=== PATIENT | female | born 1940 | race Caucasian/White ===

== ENCOUNTER 2020-04-01 11:30 | Outpatient (REF) | payer MEDICARE, SELFPAY ==
--- NOTE | 2020-04-01 11:39 | XR_ITS ---
EXAMINATION: XR HAND WRIST, LEFT CLINICAL INFORMATION: S69.90XA - Unspecified injury of left wrist, hand COMPARISON: None TECHNIQUE: The left hand and wrist are imaged together in 3 large [id number] images. There are a total of 3 views. FINDINGS: There is a comminuted fracture distal radial metaphysis with both transverse and longitudinal components extending to the distal articular surface. There is dorsal angulation distal radial articular surface and a dorsally displaced dorsal medial radial fragment. There is no dislocation. There is old ununited fracture ulnar styloid with corticated margins. Suspect small acute fracture dorsal medial aspect distal ulnar. There there is extensive chondrocalcinosis in the region of the triangular fibrocartilage and in the medial and lateral carpus and adjacent to the distal ulnar. Some fine chondrocalcinosis also noted at the first MCP joint. There are no other fractures. There are prominent osteoarthritic changes first carpometacarpal joint. Mild joint narrowing present DIP joints without erosive changes. XR/XR hand wrist LT IMPRESSION: 1. Comminuted intra-articular fracture distal radius with dorsal angulation and mild displacement. 2. Small corner fracture dorsal medial distal ulnar. Old ununited corticated fracture ulnar styloid. 3. Chondrocalcinosis carpus and first MTP. 4. Prominent osteoarthritis first carpometacarpal joint. Narrowing DIP joints.
== END 2020-04-01 11:31 | disposition home or self-care (01) ==
LOC: HO.HMGCX 11:30
PROVIDERS: PCP Pediatrics; Visit Provider Nurse Practitioner Family
DX: S69.92XA Unspecified injury of left wrist, hand and finger(s), initial encounter (principal)
CPT/HCPCS: 73110; 73130

== ENCOUNTER 2020-04-08 13:38 | Outpatient (REF) | payer MEDICARE, SELFPAY ==
--- NOTE | 2020-04-08 13:38 | XR_ITS ---
EXAMINATION: XR WRIST, LEFT CLINICAL INFORMATION: Left wrist fracture COMPARISON: Previous x-ray 04/01/2020 TECHNIQUE: PA, lateral, and oblique views of the left wrist. FINDINGS: There is a comminuted fracture of the left distal radius. There is a transverse component that is minimally displaced, impacted and has slight dorsal angulation of the distal radius with respect to the more proximal shaft. There is also a vertical component that is minimally displaced and extends intra-articular with the radiocarpal joint. This appears unchanged from previous exam. There is an old ulnar styloid fracture. There is a comminuted minimally displaced acute fracture of the distal ulna This appears unchanged. There are degenerative changes at the first FPC and trapezoid trapezium scaphoid joint. There is a chondrocalcinosis in the region of the triangular fibrocartilage complex. There is overlying soft tissue swelling. XR/XR wrist LT min 3V IMPRESSION: No change in the left distal radius and ulnar fractures from previous exam.
== END 2020-04-08 13:39 | disposition home or self-care (01) ==
LOC: HO.HOSX 13:38
PROVIDERS: PCP Pediatrics; Visit Provider Physician Assistant
DX: S62.102A Fracture of unspecified carpal bone, left wrist, initial encounter for closed fracture (principal)
CPT/HCPCS: 29085; 73110; 99202

== ENCOUNTER 2020-04-16 11:13 | Day surgery (SDC) | payer MEDICARE, SELFPAY ==
--- NOTE | 2020-04-15 10:21 | P.CONAN_ITS ---
Documented by User: Kelly Knightney 04/15/20 10:22 HPI - Anesthesia Eval Consult details Narrative: 80yo F for Radius Distal Fracture ORIF [facility] Past Medical History Medical History Anxiety COPD (chronic obstructive pulmonary disease) Depression Hyperlipidemia Surgical History Surgical History History of ankle surgery Social History Social History Are you a primary animal caretaker to a significant other at home: No Do you presently have visiting nurse or other home services: No Alcohol intake: never Smoking Status: Former smoker Use of substances other than those prescribed or required for medical reasons: No Advance Directives: Yes Advance Directives Information Provided: No Advance Directives on File: No (Pt's dtr is HCP unsure if its on file here) Advance Directives Date on File: 05/02/16 Recently lost weight without trying: No Current occupation: rt handed Meds Allergies Allergy/AdvReac Type Severity Reaction Status Date / Time No Known Allergies Allergy Verified 04/08/20 13:24 Home Medications Medication Instructions Recorded Confirmed Type aspirin 325 mg tablet 325 mg PO DAILY 04/08/20 History atorvastatin 10 mg tablet 10 mg PO BEDTIME 04/08/20 History calcium acetate 667 mg tablet 1,334 mg PO TID 04/08/20 History famotidine 40 mg/5 mL (8 mg/mL) 20 mg PO BEDTIME 04/08/20 History oral suspension tiotropium bromide 1.25 2 puff INHALATION BEDTIME 04/08/20 History mcg/actuation mist for inhalation venlafaxine 25 mg tablet 12.5 mg PO DAILY 04/08/20 History Exam Exam Date and Time: April 15, 2020 1021 Assessment and Plan Assessment Anesthesia Assessment: Chart Reviewed Documented by User: Dipesh Mcgee MD 04/16/20 12:05 [facility] Past Medical History Medical History Anxiety COPD (chronic obstructive pulmonary disease) Depression Hyperlipidemia Surgical History Surgical History History of ankle surgery Social History Social History Are you a primary animal caretaker to a significant other at home: No Do you presently have visiting nurse or other home services: No Alcohol intake: never Smoking Status: Former smoker Use of substances other than those prescribed or required for medical reasons: No Advance Directives: Yes Advance Directives Information Provided: No Advance Directives on File: No (Pt's dtr is HCP unsure if its on file here) Advance Directives Date on File: 05/02/16 Recently lost weight without trying: No Current occupation: rt handed Meds Allergies Allergy/AdvReac Type Severity Reaction Status Date / Time No Known Allergies Allergy Verified 04/08/20 13:24 Home Medications Medication Instructions Recorded Confirmed Type aspirin 325 mg tablet 325 mg PO DAILY 04/08/20 History atorvastatin 10 mg tablet 10 mg PO BEDTIME 04/08/20 History calcium acetate 667 mg tablet 1,334 mg PO TID 04/08/20 History famotidine 40 mg/5 mL (8 mg/mL) 20 mg PO BEDTIME 04/08/20 History oral suspension tiotropium bromide 1.25 2 puff INHALATION BEDTIME 04/08/20 History mcg/actuation mist for inhalation venlafaxine 25 mg tablet 12.5 mg PO DAILY 04/08/20 History Exam Airway Mallampati Class: II TM Dist: >3cm Neck ROM: Full Loose/Missing/Broken Teeth: Upper (False teeth) Heart: rrr Lungs: nl Other: ao Assessment and Plan Assessment Anesthesia Assessment: Anesthesia Plan Discussed and Chart Reviewed Final Anesthetic Review NPO: Yes ASA Class: III Final Preanesthetic Review: No Changes in Pt Med Stat, Meds/Allgs Chart Reviewed, Consent Obtained/Reviewed and Anes Risks/Benef Reviewed Patient Risk: Intermediate Procedure Risk: Low Anesthetic Plan Anesthetic Plan: GA Disposition: Standard PACU
--- NOTE | 2020-04-16 | XR_ITS ---
EXAMINATION: XR WRIST, LEFT CLINICAL INFORMATION: Left distal radius fracture COMPARISON: April 08, 2020 and April 01, 2020 TECHNIQUE: Four views of the left wrist. FINDINGS: There is stable appearance and alignment of comminuted intra-articular fracture of the distal left radius with dorsal angulation of the radiocarpal joint. Old ulnar styloid fracture is seen as well as comminuted distal ulnar fracture which is intra-articular. There is calcification of the triangular cartilage. There is severe degenerative change with joint space narrowing and prominent spurring about the first carpal metacarpal joint with narrowing of the triscaphe joint. XR/XR wrist LT min 3V IMPRESSION: No significant change in appearance of distal left radius and ulnar fractures with persistent dorsal angulation of the radiocarpal joint.
[2020-04-16 10:51] VITALS: BP 178/79; PULSE 96; RESP 16; TEMP 36.6; O2SAT 100; BMI 29.4
--- NOTE | 2020-04-16 16:00 | PC.NURSE ---
Addendum entered by Gisell Jean RN 04/16/20 16:54: After cast was applied, SENIOR QC TECHNICIAN intact, VSS. No pain. + pulses 7 sensation. Reminded to follow up w/ Dr Andres office Original Note: Received report from Margarita Ibarra RN. Per report, pt was not going in for procedure until Dr Andres reviewed bedside XRAY of hand. Dr Andres reviewed xray and per her orders procedure for ORIF of L Distal Radius was cancelled and pt was to be casted at bedside and discharged home thereafter. Pt was then casted at bedside, discharge instructions were discussed w/ patient and daughter, belongings returned, pt dressed in chair, IV removed and patient was discharged home via private vehicle w/ daughter.
== END 2020-04-16 23:59 ==
PROVIDERS: PCP Pediatrics; Visit Provider Orthopaedic Surgery
DX: S52.572A Other intraarticular fracture of lower end of left radius, initial encounter for closed fracture (principal); Z53.9 Procedure and treatment not carried out, unspecified reason; S52.602A Unspecified fracture of lower end of left ulna, initial encounter for closed fracture; J44.9 Chronic obstructive pulmonary disease, unspecified; F32.9 Major depressive disorder, single episode, unspecified; E78.5 Hyperlipidemia, unspecified; W07.XXXA Fall from chair, initial encounter; Y93.89 Activity, other specified; Y92.9 Unspecified place or not applicable; Y99.8 Other external cause status; Z87.891 Personal history of nicotine dependence
CPT/HCPCS: 73110

== ENCOUNTER 2020-05-05 12:33 | Outpatient (REF) | payer MEDICARE, SELFPAY ==
--- NOTE | 2020-05-05 13:10 | XR_ITS ---
EXAMINATION: XR WRIST, LEFT CLINICAL INFORMATION: Follow-up fracture COMPARISON: Previous x-rays April 2020 TECHNIQUE: Exams. of the left wrist. FINDINGS: There is a comminuted displaced fracture of the left distal radius. This appears impacted and intra-articular with the radiocarpal joint. There is dorsal angulation at the wrist. Is does not appear appreciably changed from previous exam. There is a recent fracture of the distal ulna that appears unchanged. There is an old ununited ulnar styloid fracture. There are degenerative changes at the first USP joint. Soft tissues are unremarkable. XR/XR wrist LT min 3V IMPRESSION: No change in the left distal radius and ulnar fractures.
== END 2020-05-05 12:34 | disposition home or self-care (01) ==
LOC: HO.HOSX 12:33
PROVIDERS: PCP Pediatrics; Visit Provider Orthopaedic Surgery
DX: S52.502A Unspecified fracture of the lower end of left radius, initial encounter for closed fracture (principal)
CPT/HCPCS: 73110; 99212

== ENCOUNTER 2021-04-07 15:29 | Outpatient (REF) | payer MEDICARE, SELFPAY ==
--- NOTE | ~2021-04-07 | XR_ITS ---
EXAMINATION: XR CHEST CLINICAL INFORMATION: Cough COMPARISON: Previous chest x-ray April 2019 TECHNIQUE: 2 views of the chest were obtained. FINDINGS: The cardiac and mediastinal contours are stable. The lungs are clear. The lungs are well inflated. There may be bullous changes in the left upper lobe. There is no pleural effusion or pneumothorax. There are degenerative changes of the spine and shoulders. XR/XR chest 2V IMPRESSION: No evidence for acute disease in the chest.
[2021-04-07 17:30] LABS: Influenza A PCR NEGATIVE (Negative); Influenza B PCR NEGATIVE (Negative); Resp Syncy Virus RNA Qual PCR NEGATIVE (Negative); SARS COV2 PCR INHOUSE NEGATIVE (Negative)
== END 2021-04-07 15:30 | disposition home or self-care (01) ==
LOC: HO.HMGCX 15:29
PROVIDERS: Visit Provider Physician Assistant Medical
DX: Z20.822 Contact with and (suspected) exposure to COVID-19 (principal); R05.9 Cough, unspecified; J06.9 Acute upper respiratory infection, unspecified
CPT/HCPCS: 0241U; 36415; 71046

== ENCOUNTER 2021-06-24 11:16 | Outpatient (REF) | payer MEDICARE, SELFPAY ==
--- NOTE | ~2021-06-24 | XR_ITS ---
EXAMINATION: XR CHEST CLINICAL INFORMATION: COPD with acute exacerbation. COMPARISON: 04/07/2021. TECHNIQUE: 2 views of the chest were obtained. FINDINGS: There is chronic scarring seen at the left lung base. There is no evidence of acute parenchymal disease, pneumothorax, or pleural effusion. Heart normal size. No evidence of pulmonary edema. There is severe degenerative change of the right shoulder. XR/XR chest 2V IMPRESSION: No definite acute parenchymal disease identified.
== END 2021-06-24 11:17 | disposition home or self-care (01) ==
LOC: HO.XRAY 11:16
PROVIDERS: PCP Pediatrics; Visit Provider Pediatrics
DX: J44.1 Chronic obstructive pulmonary disease with (acute) exacerbation (principal)
CPT/HCPCS: 71046

== ENCOUNTER → 2021-07-13 14:15 | Outpatient (BNVA) | payer MEDICARE, SELFPAY | PROVIDERS: PCP Pediatrics; Visit Provider Internal Medicine | DX: J44.9 Chronic obstructive pulmonary disease, unspecified (principal); R05.9 Cough, unspecified; Z87.891 Personal history of nicotine dependence | CPT/HCPCS: 99202 ==

== ENCOUNTER 2021-08-26 09:43 | Outpatient (REF) | payer MEDICARE, SELFPAY ==
--- NOTE | 2021-08-26 11:49 | PFT_ITS ---
INDICATION: COPD. SPIROMETRY: FEV1 to FVC of 62% with an FEV1 of 0.82 L, which is a 62% predicted and an FVC of 1.32 L which is 72% predicted. No significant response to bronchodilators noted, her spirometry actually got worse post bronchodilators. Maximum voluntary ventilation only 42% predicted. LUNG VOLUMES: The patient did have a hard time completing the lung volume maneuver. A FRC could not be reached and therefore the static numbers could not be measured. Her expiratory reserve volume was 97% predicted. DIFFUSION CAPACITY: DLCO 56% predicted. COMPARISONS: None available. INTERPRETATION: There is an obstructive ventilatory defect, consistent with moderate COPD. No significant response to bronchodilators noted, actually numbers got worse and the patient does have a severe decrease in maximum voluntary ventilation secondary likely to deconditioning. Lung volumes cannot be measured, although her expiratory reserve volume is within normal limits. The patient does have a moderate diffusion impairment secondary to emphysema and other parenchymal lung conditions should be considered. Clinical correlation is warranted. Sanket Lorenz MD MR/MODL / [id number]
== END 2021-08-26 09:44 | disposition home or self-care (01) ==
LOC: HO.RESP 09:43
PROVIDERS: PCP Pediatrics; Visit Provider Internal Medicine
DX: J44.9 Chronic obstructive pulmonary disease, unspecified (principal); R05.9 Cough, unspecified
CPT/HCPCS: 94060; 94729; 99212

== ENCOUNTER 2021-08-29 08:36 | Outpatient (REF) | payer MEDICARE, SELFPAY ==
[2021-08-29 11:09] LABS: MANUAL DIFF FLAG NO
[2021-08-29 11:14] LABS: Basophils Percent Auto 0.3 % (0-2); Eosinophils Absolute Auto 0.1 X10*3/uL (0.0-0.4); Eosinophils Percent Auto 1.7 % (0-4); Hematocrit 42.4 % (37.0-47.0); Hemoglobin 13.2 g/dl (12.0-16.0); Imm Gran Abs Auto 0.01 X10*3/uL (0.00-0.03); Imm Gran Pct Auto 0.1 % (0.0-0.4); Lymphocytes Absolute Auto 2.1 X10*3/uL (1.2-4.9); Lymphocytes Percent Auto 28.3 % (20-40); Mean Corpuscular HGB Conc 31.1 g/dl (31.0-35.0); Mean Corpuscular Hemoglobin 27.4 pg (27.0-33.0); Mean Corpuscular Volume 88.1 fL (80.0-98.0); Mean Platelet Volume 9.7 fL (9.4-12.3); Monocytes Absolute Auto 0.7 X10*3/uL (0.1-1.2); Monocytes Percent Auto 9.4 % (2-11); Neutrophils Absolute Auto 4.5 x10*3/uL (2.0-8.3); Neutrophils Percent Auto 60.2 % (45-73); Platelet Count 293 X10*3/uL (160-400); Red Blood Count 4.81 X10*6/uL (4.20-5.50); Red Cell Distribution Width 13.4 % (11.0-16.0); White Blood Count 7.5 X10*3/uL (4.8-10.8)
[2021-08-29 11:24] LABS: Alanine Aminotransferase 11 U/L (0-31); Albumin Level 4.1 g/dL (3.5-5.0); Alkaline Phosphatase 79 U/L (39-117); Anion Gap 11 (12-20); Aspartate Amino Transferase 18 U/L (5-31); Bilirubin Total 0.4 mg/dL (0.0-1.0); Blood Urea Nitrogen 9 mg/dL (9-16); Calcium 9.6 mg/dL (8.4-10.2); Carbon Dioxide 27 mmol/L (22-29); Chloride 107 mmol/L (96-108); Cholesterol 172 mg/dL; Estimated Glomerular Filt Rate > 60; Glucose Random 96 mg/dL (60-115); HDL Cholesterol 64 mg/dL; LDL Cholesterol Calculated 92 mg/dl; Potassium 4.3 mmol/L (3.3-5.1); Sodium 141 mmol/L (135-145); Total Protein 7.1 g/dL (6.5-8.0); Triglycerides 84 mg/dL
[2021-08-29 11:58] LABS: TSH reflex Free T4 2.17 uIU/mL (0.32-4.0)
[2021-08-29 12:15] LABS: Estimated Average Glucose 108 mg/dL; Hemoglobin A1c % 5.4 %
[2021-08-29 14:14] LABS: Vitamin D 25-OH Total 33.4 ng/mL (>30)
[2021-08-31 09:04] LABS: Vitamin B12 286 pg/mL (200-900)
== END 2021-08-29 08:37 | disposition home or self-care (01) ==
LOC: HO.HMGCLDS 08:36
PROVIDERS: PCP Pediatrics; Visit Provider Pediatrics
DX: J45.30 Mild persistent asthma, uncomplicated (principal); E78.00 Pure hypercholesterolemia, unspecified
CPT/HCPCS: 36415; 80053; 80061; 82306; 82550; 82607; 83036; 84443; 85025

== ENCOUNTER → 2021-10-19 10:06 | Outpatient (BNVA) | payer MEDICARE, SELFPAY | PROVIDERS: PCP Pediatrics; Visit Provider Internal Medicine | DX: J44.9 Chronic obstructive pulmonary disease, unspecified (principal); R05.9 Cough, unspecified | CPT/HCPCS: 99212 ==

== ENCOUNTER → 2022-02-18 10:22 | Outpatient (BNVA) | payer MEDICARE, SELFPAY | PROVIDERS: PCP Pediatrics; Visit Provider Internal Medicine | DX: J44.9 Chronic obstructive pulmonary disease, unspecified (principal); R05.9 Cough, unspecified | CPT/HCPCS: 99212 ==

== ENCOUNTER 2022-06-26 09:49 | Outpatient (REF) | payer MEDICARE, SELFPAY ==
--- NOTE | ~2022-06-26 | XR_ITS ---
EXAMINATION: XR chest 2V CLINICAL INFORMATION: Cough COMPARISON: No prior chest x-ray available in our system for comparison at the time of this dictation. TECHNIQUE: XR chest 2V Lungs and Erika: Lungs are hyperinflated, flattening of the diaphragm possibly trapping disease asthma or COPD. Pleura: Normal. Costophrenic angles are sharp. No pneumothorax. Heart: The heart is normal in size. Mediastinum: The mediastinum is within normal limits.. Bones: Skeletal structures included are normal for patient's age. XR/XR chest 2V IMPRESSION: * Hyperinflated lungs possibly trapping disease asthma small airway disease, and/or COPD. * No radiographic evidence of acute infiltrates or failure.
[2022-06-26 11:10] LABS: Binax Internal Control QC Valid; Binax Now Covid-19 Ag Negative (Negative); Binax Performed by: HO.BONILM
[2022-06-26 12:12] LABS: Influenza A PCR NEGATIVE (Negative); Influenza B PCR NEGATIVE (Negative); Resp Syncy Virus RNA Qual PCR NEGATIVE (Negative); SARS COV2 PCR INHOUSE NEGATIVE (Negative)
== END 2022-06-26 09:50 | disposition home or self-care (01) ==
LOC: HO.HMGCX 09:49
PROVIDERS: PCP Pediatrics; Visit Provider Physician Assistant Medical
DX: R05.9 Cough, unspecified (principal); Z20.822 Contact with and (suspected) exposure to COVID-19
CPT/HCPCS: 0241U; 71046; 87811; C9803

== ENCOUNTER 2022-08-05 08:59 | Outpatient (REF) | payer MEDICARE, SELFPAY ==
--- NOTE | ~2022-08-05 | XR_ITS ---
EXAMINATION: XR CHEST CLINICAL INFORMATION: COPD COMPARISON: Previous chest x-ray most recent June 2022 TECHNIQUE: 2 views of the chest were obtained. FINDINGS: The cardiac and mediastinal contours are stable. The lungs are clear. The lungs are well inflated. No pleural effusion or pneumothorax. Degenerative changes of the spine. XR/XR chest 2V IMPRESSION: No evidence for acute disease in the chest.
== END 2022-08-05 09:00 | disposition home or self-care (01) ==
LOC: HO.XRAY 08:59
PROVIDERS: PCP Pediatrics; Visit Provider Internal Medicine
DX: J44.1 Chronic obstructive pulmonary disease with (acute) exacerbation (principal); Z79.899 Other long term (current) drug therapy
CPT/HCPCS: 71046; 99212

== ENCOUNTER → 2022-08-30 09:43 | Outpatient (BNVA) | payer MEDICARE, SELFPAY | PROVIDERS: PCP Pediatrics; Visit Provider Internal Medicine | DX: J44.9 Chronic obstructive pulmonary disease, unspecified (principal); R05.9 Cough, unspecified | CPT/HCPCS: 99212 ==

== ENCOUNTER 2023-02-23 10:08 | Outpatient (REF) | payer MEDICARE, SELFPAY ==
[2023-02-23 14:56] LABS: MANUAL DIFF FLAG NO
[2023-02-23 15:04] LABS: Basophils Percent Auto 0.3 % (0-2); Eosinophils Absolute Auto 0.1 X10*3/uL (0.0-0.4); Hematocrit 42.9 % (37.0-47.0); Hemoglobin 13.3 g/dl (12.0-16.0); Imm Gran Abs Auto 0.01 X10*3/uL (0.00-0.03); Imm Gran Pct Auto 0.2 % (0.0-0.4); Lymphocytes Absolute Auto 1.4 X10*3/uL (1.2-4.9); Lymphocytes Percent Auto 22.7 % (20-40); Mean Corpuscular Volume 90.3 fL (80.0-98.0); Mean Platelet Volume 9.5 fL (9.4-12.3); Monocytes Absolute Auto 0.7 X10*3/uL (0.1-1.2); Monocytes Percent Auto 11.3 % (2-11); Neutrophils Absolute Auto 3.8 x10*3/uL (2.0-8.3); Neutrophils Percent Auto 64.5 % (45-73); Platelet Count 302 X10*3/uL (160-400); Red Blood Count 4.75 X10*6/uL (4.20-5.50); Red Cell Distribution Width 13.4 % (11.0-16.0)
[2023-02-23 15:31] LABS: Alanine Aminotransferase 13 U/L (0-31); Albumin Level 4.3 g/dL (3.5-5.0); Alkaline Phosphatase 94 U/L (39-117); Anion Gap 14 (12-20); Aspartate Amino Transferase 18 U/L (5-31); Bilirubin Direct 0.1 mg/dL (0.0-0.5); Bilirubin Total 0.3 mg/dL (0.0-1.0); Blood Urea Nitrogen 16 mg/dL (9-16); Calcium 10.2 mg/dL (8.4-10.2); Carbon Dioxide 28 mmol/L (22-29); Chloride 104 mmol/L (96-108); Cholesterol 169 mg/dL (<200); Estimated Glomerular Filt Rate > 60; Glucose Fasting 86 mg/dL (60-99); HDL Cholesterol 60 mg/dL (>40); LDL Cholesterol Calculated 88 mg/dL (<100); Potassium 4.9 mmol/L (3.3-5.1); Sodium 141 mmol/L (135-145); Total Protein 7.7 g/dL (6.5-8.0); Triglycerides 109 mg/dL (<150)
[2023-02-23 15:47] LABS: Vitamin B12 441 pg/mL (200-900)
[2023-02-23 15:51] LABS: Vitamin D 25-OH Total 39.1 ng/mL (>30)
== END 2023-02-23 10:09 | disposition home or self-care (01) ==
LOC: HO.CHCLDS 10:08
PROVIDERS: Visit Provider Pediatrics
DX: R41.3 Other amnesia (principal); E78.00 Pure hypercholesterolemia, unspecified; M12.9 Arthropathy, unspecified
CPT/HCPCS: 36415; 80048; 80061; 80076; 82306; 82550; 82607; 84443; 85025

== ENCOUNTER 2023-03-10 09:41 | Outpatient (AMB) | payer MEDICARE, SELFPAY ==
--- NOTE | 2023-03-10 09:47 | A.OFFVIS_ITS ---
Intake Vital Signs 03/10/23 09:51 Height 4 ft 9 in Weight 135 lb BMI 29.2 BP 102/52 L Blood Pressure Location Lt brachial Position Sitting Pulse 106 H Pulse Source Pulse Oximeter Temp 98.6 F Temp Source Temporal Artery Scan Pulse Oximetry (%) 94 Oxygen Delivery Method Room Air Intake Visit Reasons: copd Intake Note: pt is here for follow up but has been sick for little over a week, with chest congestion, coughing all night, keeping her up, yellow phelgm. using nebulizer tid Allergies No Known Allergies Allergy (Verified 03/10/23 09:56) Medication List - Last Reconciled 03/10/23 by Zehra Amador MD albuterol sulfate 2.5 mg (3 mL) inhalation Q4-6H PRN albuterol sulfate 90 mcg/actuation 0 mcg inhalation aspirin 81 mg PO DAILY atorvastatin 20 mg PO BEDTIME benzonatate 100 mg PO BID-TID PRN calcium carbonate-vitamin D3 600 mg-5 mcg (200 unit) 1 tab PO QAM celecoxib 100 mg PO DAILY docusate sodium 100 mg PO DAILY famotidine 20 mg PO BID fluticasone furoate-vilanterol 100-25 mcg/dose (Breo Ellipta) 1 inh inhalation DAILY 90 days guaifenesin 400 mg PO TID PRN melatonin 3 mg PO BEDTIME memantine 10 mg PO BID multivitamin 1 tab PO QAM Spiriva with HandiHaler (tiotropium bromide) 1 cap inhalation DAILY NS venlafaxine 75 mg PO DAILY Do you need a note to return to daycare/school/sports/work: No HPI copd HPI Details 82 years old very pleasant female is bro ught into the office by her daughter, ANTHONY , For 6 months follow-up She has been well and stable but since last week having some congestion in the upper airways cough and yellowish phlegm. No fever or chills, She has been using her regular inhalers including Breo and Spiriva, Also uses albuterol updraft about 3 times a day. [facility] Medical History COPD (chronic obstructive pulmonary disease) Depression Anxiety COPD (chronic obstructive pulmonary disease) Hyperlipidemia Surgical History History of ankle surgery Social History Are you a primary care transitions manager to a significant other at home: No Do you presently have visiting nurse or other home services: No Alcohol intake: never Patient Tobacco Use Status: Former Tobacco user Advance Directives Date on File: 05/02/16 Current occupation: rt handed Review of Systems Const All systems reviewed & are unremarkable except as noted in HPI and below Eyes Reports no additional complaints ENT Reports nasal congestion (Mild intermittent) Card Denies chest pain, Denies irregular heart rhythm and Denies leg edema Resp Reports as per HPI (AT PRESENT SHE DOES HAVE INCREASED AMOUNT OF COUGH) GI Reports heartburn (Mild GERD symptoms controlled with medicine) Reports no additional complaints Musc Reports abnormal gait (Impaired gait and she uses walker in the house) and Reports muscle weakness (Lower extremities) Skin/Breast Reports system reviewed and no additional complaints, except as documented Neuro Reports abnormal gait (Impaired gait and she uses walker in the house) and 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) Psych Reports no additional complaints and 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) Physical Exam Const Other: Very pleasant, in wheelchair General: comfortable, no acute distress, alert and awake Orientation/consciousness: patient oriented x3 HEENT Head: Yes normal to inspection General nose exam: No nasal polyps present and No nasal discharge present Face and sinus: Yes sinuses nontender Mouth: oropharynx normal Throat: Yes posterior oropharynx normal Eyes General: appearance normal, both eyes and all related structures Neck Neck: Yes normal visual inspection, Yes no lymphadenopathy, Yes trachea midline and Yes no JVD Thyroid: Thyroid normal Chest Chest palpation & inspection: normal inspection of the chest, normal palpation of entire chest wall and no tenderness Resp Other: Percussion note is resonant . Breath sounds are distant with prolonged expiratory phase . SHE DOES HAVE INSPIRATORY WHEEZES AND RHONCHI OVER THE BASILAR AREAS . Cardio Palpation: normal PMI Rate: regular rate Rhythm: regular rhythm Heart sounds: no gallops and no murmurs GI Palpation (GI): Soft to palpation, nontender, No hepatosplenomegaly present and no masses Auscultation: normal bowel sounds Back/Spine/Pelvis Thoracic/Lumbar Spine: thoracic and lumbar spine normal to inspection and thoraco-lumbar ROM limited Skin General skin exam: no rashes or lesions noted Neuro General: patient oriented x3, No gait normal (Impaired gait and she uses walker for stability) and no focal motor deficits Cranial nerves: Yes CN's II-XII intact bilaterally Extrem General: Yes normal to inspection, Yes no clubbing, cyanosis or edema, Yes no calf tenderness and Yes other (Toes of both feet are cold, but peripheral pulses normal. ( vaso motor )) Psych Appearance: grossly normal and well kempt Speech and movement: Normal speech and movement present Assessment & Plan Assessment & Plan (1) COPD exacerbation: Comment: CURRENTLY SHE HAS INCREASED SYMPTOMS OF COUGH AND SHORTNESS OF BREATH. ON AUSCULTATION THERE ARE CREPITATIONS/WHEEZES OVER THE RIGHT LUNG. TX: CONTINUE SPIRIVA HANDIHALER 1 INHALATION DAILY AND BREO 100-25 1 INHALATION DAILY. ALBUTEROL 2 PUFFS Q 4-6 HOURS P.R.N./ OR ALBUTEROL IN NEB Q 6 HRS PRN PREDNISONE 20 MG BID X 5 DAYS AND ALSO DOXYCYCLINE 100 B.I.D. FOR A COURSE OF 10 DAYS. Code(s): J44.1 - Chronic obstructive pulmonary disease with (acute) exacerbation (2) Cough: Comment: Cough is mild to moderate and mainly related to COPD. Use cough syrup, OTC, such as Robitussin 2 tsp t.i.d., only as needed. Code(s): R05.9 - Cough, unspecified Medications: New prednisone 20 mg PO BID 5 days 10 tabs 1RF doxycycline hyclate 100 mg PO BID 10 days 20 tabs 0RF BRONCHITIS Changed From Spiriva with HandiHaler (tiotropium bromide) 1 cap inhalation DAILY 30 ea 5RF NS To Spiriva with HandiHaler (tiotropium bromide) 1 cap inhalation DAILY 30 days 30 ea 5RF NS Refilled fluticasone furoate-vilanterol 100-25 mcg/dose (Breo Ellipta) 1 inh inhalation DAILY 90 days 60 ea 3RF COPD Coding Level of Care Code Est Pt Level 3 (40163) Diagnoses COPD exacerbation J44.1 Cough R05.9
[2023-03-10 09:51] VITALS: BP 102/52; PULSE 106; TEMP 37; O2SAT 94; BMI 29.2
== END 2023-03-10 10:05 | disposition home or self-care (01) ==
PROVIDERS: PCP Pediatrics; Visit Provider Internal Medicine
DX: J44.1 Chronic obstructive pulmonary disease with (acute) exacerbation (principal); R05.9 Cough, unspecified
CPT/HCPCS: 99213

== ENCOUNTER → 2023-03-10 09:41 | Outpatient (BNVA) | payer MEDICARE, SELFPAY | PROVIDERS: PCP Pediatrics; Visit Provider Internal Medicine | DX: J44.1 Chronic obstructive pulmonary disease with (acute) exacerbation (principal); R05.9 Cough, unspecified | CPT/HCPCS: 99212 ==

== ENCOUNTER 2023-05-20 10:01 | Outpatient (AMB) | payer MEDICARE, SELFPAY ==
--- NOTE | 2023-05-20 11:03 | AM.OFFWIN_ITS ---
Intake Vital Signs 05/20/23 11:16 Height 4 ft 9 in BMI Reason not done Patient refused/unable BP 110/68 Blood Pressure Location Rt brachial Position Sitting Pulse 117 H Pulse Source Pulse Oximeter Pulse Oximetry (%) 92 Oxygen Delivery Method Room Air Intake Visit Reasons: EST/cough congestion ([phone]) Intake Note: pt is here for c/o cough an congestion for a few days Patient Tobacco Use Status: Former Tobacco user Allergies No Known Allergies Allergy (Verified 05/20/23 11:03) Medication List - Last Reconciled 05/20/23 by Yeni Xavier NP albuterol sulfate 2.5 mg (3 mL) inhalation Q4-6H PRN albuterol sulfate 90 mcg/actuation 0 mcg inhalation amoxicillin 500 mg PO BID 10 days aspirin 81 mg PO DAILY atorvastatin 20 mg PO DAILY atorvastatin 20 mg PO BEDTIME calcium carbonate-vitamin D3 600 mg-5 mcg (200 unit) 1 tab PO QAM celecoxib 100 mg PO DAILY docusate sodium 100 mg PO DAILY famotidine 20 mg PO BID fluticasone furoate-vilanterol 100-25 mcg/dose (Breo Ellipta) 1 inh inhalation DAILY 90 days guaifenesin 400 mg PO TID PRN melatonin 3 mg PO BEDTIME memantine 10 mg PO BID multivitamin 1 tab PO QAM prednisone 50 mg PO BID 5 days Spiriva with HandiHaler (tiotropium bromide) 1 cap inhalation DAILY 30 days NS venlafaxine 75 mg PO DAILY Do you need a note to return to daycare/school/sports/work: No HPI HPI Comments History of Present Illness Details 83 y/o female who presents to walk in [facility] with c/o cough and chest congestion. H/o COPD. Reports trouble moving air in/out. [facility] Medical History COPD (chronic obstructive pulmonary disease) Depression Anxiety COPD (chronic obstructive pulmonary disease) Hyperlipidemia Surgical History History of ankle surgery Social History Are you a primary menagerie caretaker to a significant other at home: No Do you presently have visiting nurse or other home services: No Alcohol intake: never Patient Tobacco Use Status: Former Tobacco user Advance Directives Date on File: 05/02/16 Current occupation: rt handed Review of Systems Const All systems reviewed & are unremarkable except as noted in HPI and below Physical Exam Vital Signs: Last Vital Signs Pulse 117 H 05/20/23 11:16 BP 110/68 05/20/23 11:16 Pulse Ox 92 05/20/23 11:16 Oxygen Delivery Method Room Air 05/20/23 11:16 Const General: comfortable and no acute distress HEENT Head: Yes normocephalic Ears: external ears normal and TM's normal bilaterally General nose exam: Normal nasal mucous membranes and turbinates present Face and sinus: Yes sinus tenderness Mouth: moist mucous membranes Throat: Yes posterior oropharynx normal Resp Effort & Inspection: audible wheezes and Actively coughing Auscultation: no crackles, no rales, no rhonchi and wheezes scattered wheezes Cardio Rate: regular rate Rhythm: regular rhythm Office Procedures Nebulizer Treatment Nebulizer Treatment [id number]/[id number] RX initial, or Nebulizer Subsequent Treatment Office Meds ipratropium 0.5 mg-albuterol 3 mg (2.5 mg base)/3 mL nebulization soln Performing Provider: Yeni Xavier NP Performing Location: [facility] Administered by: Tiesha Sun RN on 05/20/23 11:51 Dose Route Admin Location Dispensed Lot Number Expiration Date NDC [employer] 3 mL inhalation 3 mL [id number] 01/31/24 8022-5029-81 [facility] Assessment & Plan Assessment & Plan (1) Cough in adult: Code(s): R05.9 - Cough, unspecified Plan: - Continue with home Nebs 4-6 hours Rest, warm fluids (2) Upper respiratory infection: Code(s): J06.9 - Acute upper respiratory infection, unspecified Qualifiers: URI type: unspecified viral URI Qualified Code(s): J06.9 - Acute upper respiratory infection, unspecified Plan: - Continue with home Nebs 4-6 hours Rest, warm fluids Orders: Orders SARS-CoV2/FLU/RSV Today J06.9 - Acute upper respiratory infection, unspecified, R05.9 - Cough, unspecified AMB Nebulizer Treatment Today J06.9 - Acute upper respiratory infection, unspecified, R05.9 - Cough, unspecified Medications: New amoxicillin 500 mg PO BID 10 days 20 caps 0RF J06.9 - Acute upper respiratory infection, unspecified, R05.9 - Cough, unspecified prednisone 50 mg PO BID 5 days 10 tabs 0RF J06.9 - Acute upper respiratory infection, unspecified, R05.9 - Cough, unspecified Discontinued prednisone Discontinued Reason: Patient Completed Course 20 mg PO BID 5 days 10 tabs 1RF Coding Level of Care Code Est Pt Level 3 (21213) Diagnoses Cough in adult R05.9 Viral upper respiratory tract infection J06.9 URI type: unspecified viral URI CPT Codes Nebulizer Treatment - Nebulizer Treatment, initial or subsequent: [id number]- Nebulizer/MDI RX initial, or Nebulizer Subsequent Treatment ([id number]) Time Spent (min) 15
[2023-05-20 11:16] VITALS: BP 110/68; PULSE 117; O2SAT 92
== END 2023-05-20 12:12 | disposition home or self-care (01) ==
PROVIDERS: PCP Pediatrics; Visit Provider Nurse Practitioner Family
DX: R05.9 Cough, unspecified (principal); J06.9 Acute upper respiratory infection, unspecified
CPT/HCPCS: 94640; 99213; J7620

== ENCOUNTER 2023-05-20 15:51 | Outpatient (REF) | payer MEDICARE, SELFPAY ==
[2023-05-20 16:47] LABS: Influenza A PCR NEGATIVE (Negative); Influenza B PCR NEGATIVE (Negative); Resp Syncy Virus RNA Qual PCR NEGATIVE (Negative); SARS COV2 PCR INHOUSE POSITIVE (Negative)
== END 2023-05-20 15:52 | disposition home or self-care (01) ==
LOC: HO.LNP 15:51
PROVIDERS: Visit Provider Nurse Practitioner Family
DX: Z11.52 Encounter for screening for COVID-19 (principal); J06.9 Acute upper respiratory infection, unspecified; R05.9 Cough, unspecified
CPT/HCPCS: 0241U

== ENCOUNTER 2023-06-22 14:01 | Outpatient (AMB) | payer MEDICARE, SELFPAY ==
[2023-06-22 14:06] VITALS: BP 158/80; PULSE 96; TEMP 36.6; O2SAT 98
--- NOTE | 2023-06-22 14:06 | AM.OFFWIN_ITS ---
Intake Vital Signs 06/22/23 14:06 Height 4 ft 9 in BP 158/80 H Blood Pressure Location Lt brachial Position Sitting Pulse 96 Pulse Source Pulse Oximeter Temp 97.9 F Temp Source Temporal Artery Scan Pulse Oximetry (%) 98 Oxygen Delivery Method Room Air Intake Visit Reasons: EP Chest Congestion 5 days Intake Note: pt is here today for chest congestion started 5 days ago Patient Tobacco Use Status: Former Tobacco user Allergies No Known Allergies Allergy (Verified 06/22/23 14:08) Do you need a note to return to daycare/school/sports/work: No HPI HPI Comments History of Present Illness Details 83 y/o female patient who presents to [facility] in clinic with c/o chest/nasal congestion, wheezing and SOB for 5 days. H/o COPD and currently having an exacerbation. Denies fevers, chills, nausea and vomiting. Reports good appetite. PFS Medical History COPD (chronic obstructive pulmonary disease) Depression Anxiety COPD (chronic obstructive pulmonary disease) Hyperlipidemia Surgical History History of ankle surgery Social History Are you a primary family day care worker to a significant other at home: No Do you presently have visiting nurse or other home services: No Alcohol intake: never Patient Tobacco Use Status: Former Tobacco user Advance Directives Date on File: 05/02/16 Current occupation: rt handed Review of Systems Const All systems reviewed & are unremarkable except as noted in HPI and below Physical Exam Vital Signs: Last Vital Signs Temp 97.9 F 06/22/23 14:06 Pulse 96 06/22/23 14:06 BP 158/80 H 06/22/23 14:06 Pulse Ox 98 06/22/23 14:06 Oxygen Delivery Method Room Air 06/22/23 14:06 Const General: comfortable and no acute distress HEENT Head: Yes normocephalic Ears: external ears normal and TM's normal bilaterally General nose exam: Normal nasal mucous membranes and turbinates present Face and sinus: Yes sinuses nontender Mouth: moist mucous membranes Throat: Yes posterior oropharynx normal Resp Effort & Inspection: audible wheezes and Actively coughing Auscultation: rhonchi and wheezes scattered wheezes Cardio Rate: regular rate Rhythm: regular rhythm Office Procedures Nebulizer Treatment Nebulizer Treatment [id number]/MDI RX initial, or Nebulizer Subsequent Treatment Office Meds ipratropium 0.5 mg-albuterol 3 mg (2.5 mg base)/3 mL nebulization soln Performing Provider: Yeni Xavier NP Performing Location: [facility] Administered by: Tiesha Sun RN on 06/22/23 14:37 Dose Route Admin Location Dispensed Lot Number Expiration Date 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 - RTC with high fevers, nausea or vomiting. Orders: Orders XR chest 2V Today AMB Nebulizer Treatment Today J44.1 - Chronic obstructive pulmonary disease with (acute) exacerbation Medications: New amoxicillin-pot clavulanate 875-125 mg 1 tab PO Q12H 5 days 10 tabs 0RF J44.1 - Chronic obstructive pulmonary disease with (acute) exacerbation azithromycin 500 mg PO DAILY 3 days 3 tabs 0RF J44.1 - Chronic obstructive pulmonary disease with (acute) exacerbation ipratropium-albuterol 0.5 mg-3 mg(2.5 mg base)/3 mL 3 mL inhalation Q4-6H PRN 90 mL 0RF wheezing J44.1 - Chronic obstructive pulmonary disease with (acute) exacerbation prednisone 50 mg PO DAILY 5 days 5 tabs 0RF J44.1 - Chronic obstructive pulmonary disease with (acute) exacerbation Coding Level of Care Code Est Pt Level 4 (19625) Diagnoses COPD with acute exacerbation J44.1 CPT Codes Nebulizer Treatment - Nebulizer Treatment, initial or subsequent: 95405- Nebulizer/MDI RX initial, or Nebulizer Subsequent Treatment ([id number]) Time Spent (min) 30 Comment
== END 2023-06-22 15:48 | disposition home or self-care (01) ==
PROVIDERS: PCP Pediatrics; Visit Provider Nurse Practitioner Family
DX: J44.1 Chronic obstructive pulmonary disease with (acute) exacerbation (principal)
CPT/HCPCS: 94640; 99214; J7620

== ENCOUNTER 2023-06-22 14:20 | Outpatient (REF) | payer MEDICARE, SELFPAY ==
--- NOTE | ~2023-06-22 | XR_ITS ---
EXAMINATION: XR CHEST CLINICAL INFORMATION: Cough, shortness of breath, wheezing. COMPARISON: Chest radiograph 08/05/2022. TECHNIQUE: 2 views of the chest were obtained. FINDINGS: Slightly increased diffuse interstitial prominence. No focal consolidation, pleural effusion or pneumothorax. Normal heart size. Mild atherosclerotic disease of the aortic arch. Thoracic spondylosis. Severe degenerative changes in the shoulders. No acute osseous findings. XR/XR chest 2V IMPRESSION: Findings suspicious for a small airways disease without focal consolidation or pleural effusion.
== END 2023-06-22 14:21 | disposition home or self-care (01) ==
LOC: HO.HMGCX 14:20
PROVIDERS: PCP Pediatrics; Visit Provider Nurse Practitioner Family
DX: R07.89 Other chest pain (principal); R06.2 Wheezing; R05.9 Cough, unspecified; R06.02 Shortness of breath
CPT/HCPCS: 71046

== ENCOUNTER 2023-09-05 09:47 | Outpatient (AMB) | payer MEDICARE, SELFPAY ==
[2023-09-05 09:54] VITALS: BP 110/66; PULSE 113; TEMP 36.7; O2SAT 93
--- NOTE | 2023-09-05 09:54 | AM.OFFWIN_ITS ---
Intake Vital Signs 09/05/23 09:54 Height 4 ft 9 in BMI Reason not done Patient refused/unable BP 110/66 Blood Pressure Location Rt brachial Position Sitting Pulse 113 H Pulse Source Pulse Oximeter Temp 98.1 F Temp Source Oral Pulse Oximetry (%) 93 Oxygen Delivery Method Room Air Intake Visit Reasons: EP SOB Chest congestion [id number] Intake Note: pt is here today for SOB chest congestion started 3 days ago Patient Tobacco Use Status: Former Tobacco user Allergies No Known Allergies Allergy (Verified 09/05/23 11:45) Medication List - Last Reconciled 09/05/23 by Erasto Barfield MD albuterol sulfate 90 mcg/actuation 0 mcg inhalation albuterol sulfate 2.5 mg (3 mL) inhalation Q4-6H PRN aspirin 81 mg PO DAILY atorvastatin 20 mg PO DAILY azithromycin 500 mg PO DAILY 3 days calcium carbonate-vitamin D3 600 mg-5 mcg (200 unit) 1 tab PO QAM celecoxib 100 mg PO DAILY docusate sodium 100 mg PO DAILY famotidine 20 mg PO BID fluticasone furoate-vilanterol 100-25 mcg/dose (Breo Ellipta) 1 inh inhalation DAILY 90 days guaifenesin 400 mg PO TID PRN ipratropium-albuterol 0.5 mg-3 mg(2.5 mg base)/3 mL 3 mL inhalation Q4-6H PRN memantine 10 mg PO BID multivitamin 1 tab PO QAM Spiriva with HandiHaler (tiotropium bromide) 1 cap inhalation DAILY 30 days NS venlafaxine 75 mg PO DAILY Do you need a note to return to daycare/school/sports/work: No HPI EP SOB Chest congestion [id number] HPI Details 83-year-old female presents to the [facility] for a sick visit. Patient reports increased shortness of breath, wheezing and productive cough in the past few days. Daily inhalers are not helping. Normally she uses a wheelchair to ambulate outside the house. Low-grade fever. No family members sick. [facility] Medical History COPD (chronic obstructive pulmonary disease) Depression Anxiety COPD (chronic obstructive pulmonary disease) Hyperlipidemia Surgical History History of ankle surgery Social History Are you a primary customer care team coach to a significant other at home: No Do you presently have visiting nurse or other home services: No Alcohol intake: never Patient Tobacco Use Status: Former Tobacco user Advance Directives Date on File: 05/02/16 Current occupation: rt handed Physical Exam Vital Signs: Last Vital Signs Temp 98.1 F 09/05/23 09:54 Pulse 113 H 09/05/23 09:54 BP 110/66 09/05/23 09:54 Pulse Ox 93 09/05/23 09:54 Oxygen Delivery Method Room Air 09/05/23 09:54 Const General: cooperative and healthy appearing Nutritional Appearance: well nourished Orientation/consciousness: patient oriented x3 Limitations: no limitations HEENT Head: Yes normal to inspection Eyes General: appearance normal, both eyes and all related structures Neck Neck: Yes normal visual inspection Chest Chest palpation & inspection: normal palpation of entire chest wall Resp Other: Scattered wheeze bilaterally. Effort & Inspection: normal respiratory effort Neuro General: patient oriented x3 Assessment & Plan Assessment & Plan (1) COPD exacerbation: Comment: CURRENTLY SHE HAS INCREASED SYMPTOMS OF COUGH AND SHORTNESS OF BREATH. ON AUSCULTATION THERE ARE CREPITATIONS/WHEEZES OVER THE RIGHT LUNG. TX: CONTINUE SPIRIVA HANDIHALER 1 INHALATION DAILY AND BREO 100-25 1 INHALATION DAILY. ALBUTEROL 2 PUFFS Q 4-6 HOURS P.R.N./ OR ALBUTEROL IN NEB Q 6 HRS PRN PREDNISONE 20 MG BID X 5 DAYS AND ALSO DOXYCYCLINE 100 B.I.D. FOR A COURSE OF 10 DAYS. Code(s): J44.1 - Chronic obstructive pulmonary disease with (acute) exacerbation Plan: Prednisone, Levaquin called in. Patient was encouraged to take the inhalers. Chest x-ray was personally reviewed by me. It shows bilateral infiltrates. Orders: Orders XR chest 2V Today R05.9 - Cough, unspecified AMB Nebulizer Treatment Today J44.1 - Chronic obstructive pulmonary disease with (acute) exacerbation Medications: New albuterol sulfate 2.5 mg (3 mL) inhalation ONCE 3 mL 0RF J44.1 - Chronic obstructive pulmonary disease with (acute) exacerbation Coding Level of Care Code Est Pt Level 4 (82308) Diagnoses COPD exacerbation J44.1
== END 2023-09-05 12:16 | disposition home or self-care (01) ==
PROVIDERS: PCP Pediatrics; Visit Provider Internal Medicine
DX: J44.1 Chronic obstructive pulmonary disease with (acute) exacerbation (principal)
CPT/HCPCS: 99214

== ENCOUNTER 2023-09-05 11:07 | Outpatient (REF) | payer MEDICARE, SELFPAY ==
--- NOTE | ~2023-09-05 | XR_ITS ---
EXAMINATION: XR CHEST CLINICAL INFORMATION: Cough COMPARISON: Previous chest x-ray June 2023 TECHNIQUE: 2 views of the chest were obtained. FINDINGS: The cardiac and mediastinal contours are normal. There are new bilateral nodular opacities, left greater than right. Largest measures 4 cm overlying the left pulmonary hilum and appears cavitary. No pleural effusion or pneumothorax. Degenerative changes of the spine. XR/XR chest 2V IMPRESSION: New nodular opacities, left greater than right, some of which appear cavitary. Infectious and inflammatory process should be considered. Neoplasm can't be excluded.
== END 2023-09-05 11:08 | disposition home or self-care (01) ==
LOC: HO.HMGCX 11:07
PROVIDERS: PCP Pediatrics; Visit Provider Internal Medicine
DX: R05.9 Cough, unspecified (principal)
CPT/HCPCS: 71046

== ENCOUNTER 2023-09-22 14:19 | Outpatient (AMB) | payer MEDICARE, SELFPAY ==
[2023-09-22 14:37] VITALS: BP 112/54; PULSE 95; O2SAT 100
--- NOTE | 2023-09-22 14:37 | MHC.OFFVIS ---
Vital Signs 09/22/23 14:37 Height 4 ft 9 in BP 112/54 L Blood Pressure Location Lt brachial Position Sitting Pulse 95 Pulse Source Pulse Oximeter Pulse Oximetry (%) 100 Oxygen Delivery Method Room Air Intake Visit Reasons: COPD Intake Note: pt is here for follow up and states she was in the hospital following urgent care, 09/05/23. DX pneumonia, did have admission to [facility], and now short of breath with ambulation, weaker, coughing. Lumber Mover Required: No Allergies No Known Allergies Allergy (Verified 09/22/23 14:58) Medication List - Last Reconciled 09/22/23 by Zehra Amador MD albuterol sulfate 90 mcg/actuation 0 mcg inhalation albuterol sulfate 2.5 mg (3 mL) inhalation Q4-6H PRN aspirin 81 mg PO DAILY atorvastatin 20 mg PO DAILY benzonatate 100 mg PO BID PRN calcium carbonate-vitamin D3 600 mg-5 mcg (200 unit) 1 tab PO QAM celecoxib 100 mg PO DAILY docusate sodium 100 mg PO DAILY famotidine 20 mg PO BID fluticasone furoate-vilanterol 100-25 mcg/dose (Breo Ellipta) 1 inh inhalation DAILY 90 days guaifenesin 400 mg PO TID PRN ipratropium-albuterol 0.5 mg-3 mg(2.5 mg base)/3 mL 3 mL inhalation Q4-6H PRN memantine 10 mg PO BID multivitamin 1 tab PO QAM Spiriva with HandiHaler (tiotropium bromide) 1 cap inhalation DAILY 30 days NS venlafaxine 75 mg PO DAILY Do you need a note to return to daycare/school/sports/work: No HPI HPI COPD: Details: 83 years old very pleasant female, , brought in for follow-up, after 6 months. She was admitted at [facility] just 2 weeks ago with acute exacerbation of COPD and due to pneumonia. Treated in the hospital for 1 week and then discharged. At home she has completed her short course of prednisone and antibiotics She is doing very well and seems to be back to her baseline . She still somewhat weak and has some residual cough. She has had no fever or chills or any wheezing. [facility] Medical History COPD (chronic obstructive pulmonary disease) Depression Anxiety COPD (chronic obstructive pulmonary disease) Hyperlipidemia Surgical History History of ankle surgery Social History Are you a primary career transition specialist to a significant other at home: No Do you presently have visiting nurse or other home services: No Alcohol intake: never Patient Tobacco Use Status: Former Tobacco user Advance Directives Date on File: 05/02/16 Current occupation: rt handed Review of Systems Const All systems reviewed & are unremarkable except as noted in HPI and below Eyes Reports no additional complaints ENT Reports nasal congestion (Mild intermittent) Card Denies chest pain, Denies irregular heart rhythm and Denies leg edema Resp Reports as per HPI (AT PRESENT SHE DOES HAVE INCREASED AMOUNT OF COUGH) GI Reports heartburn (Mild GERD symptoms controlled with medicine) Reports no additional complaints Musc Reports abnormal gait (Impaired gait and she uses walker in the house) and Reports muscle weakness (Lower extremities) Skin/Breast Reports system reviewed and no additional complaints, except as documented Neuro Reports abnormal gait (Impaired gait and she uses walker in the house) and 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) Psych Reports no additional complaints and 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) Physical Exam Vital Signs: Last Vital Signs Pulse 95 09/22/23 14:37 BP 112/54 L 09/22/23 14:37 Pulse Ox 100 09/22/23 14:37 Oxygen Delivery Method Room Air 09/22/23 14:37 Const Other: Very pleasant, in wheelchair General: comfortable, no acute distress, alert and awake Orientation/consciousness: patient oriented x3 HEENT Head: Yes normal to inspection General nose exam: No nasal polyps present and No nasal discharge present Face and sinus: Yes sinuses nontender Mouth: oropharynx normal Throat: Yes posterior oropharynx normal Eyes General: appearance normal, both eyes and all related structures Neck Neck: Yes normal visual inspection, Yes no lymphadenopathy, Yes trachea midline and Yes no JVD Thyroid: Thyroid normal Chest Chest palpation & inspection: normal inspection of the chest, normal palpation of entire chest wall and no tenderness Resp Other: Percussion note is resonant . Breath sounds are distant with prolonged expiratory phase . On auscultation she does not have any localize crepitations or wheezes, both sides. are quite clear Cardio Palpation: normal PMI Rate: regular rate Rhythm: regular rhythm Heart sounds: no gallops and no murmurs GI Palpation (GI): Soft to palpation, nontender, No hepatosplenomegaly present and no masses Auscultation: normal bowel sounds Back/Spine/Pelvis Thoracic/Lumbar Spine: thoracic and lumbar spine normal to inspection and thoraco-lumbar ROM limited Skin General skin exam: no rashes or lesions noted Neuro General: patient oriented x3, No gait normal (Impaired gait and she uses walker for stability) and no focal motor deficits Cranial nerves: Yes CN's II-XII intact bilaterally Extrem General: Yes normal to inspection, Yes no clubbing, cyanosis or edema, Yes no calf tenderness and Yes other (Toes of both feet are cold, but peripheral pulses normal. ( vaso motor )) Psych Appearance: grossly normal and well kempt Speech and movement: Normal speech and movement present Assessment & Plan Assessment & Plan (1) COPD (chronic obstructive pulmonary disease): Comment: This patient has long-standing history of chronic obstructive pulmonary disease. As per PFT, COPD is moderately severe, without much response to bronchodilators. This seems to be related to her previous smoking but luckily she quit more than 20 years ago. Recently treated at [facility] for possible pneumonia and acute exacerbation. Now improved to her usual baseline but still has some residual cough and weakness. Code(s): J44.9 - Chronic obstructive pulmonary disease, unspecified Category: Medical Plan: TX: Continue : Spiriva HandiHaler 1 inhalation daily Breo 100-25 1 inhalation daily. Okay to use albuterol solution in the nebulizer Q 4-6 hours p.r.n. if any wheezing or bouts of cough. INCENTIVE SPIROMETRY, , DEVICE GIVEN FROM THE OFFICE AND PATIENT EDUCATED TO DO DEEP BREATHING EXERCISES EVERY FEW HOURS WHILE AWAKE. (2) Cough: Comment: Cough is mild to moderate and mainly related to COPD. Code(s): R05.9 - Cough, unspecified Category: Medical Plan: Use cough syrup, OTC, such as Robitussin 2 tsp t.i.d., only as needed. ALSO MAY USE BENZONATATE [id number] MG B.I.D. P.R.N. Coding Level of Care Code Est Pt Level 3 (58724) Diagnoses COPD (chronic obstructive pulmonary disease) J44.9 Cough R05.9
== END 2023-09-22 14:59 | disposition home or self-care (01) ==
PROVIDERS: PCP Pediatrics; Visit Provider Internal Medicine
DX: J44.9 Chronic obstructive pulmonary disease, unspecified (principal); R05.9 Cough, unspecified
CPT/HCPCS: 99213

== ENCOUNTER → 2023-09-22 14:19 | Outpatient (BNVA) | payer MEDICARE, SELFPAY | PROVIDERS: PCP Pediatrics; Visit Provider Internal Medicine | DX: J44.9 Chronic obstructive pulmonary disease, unspecified (principal); R05.9 Cough, unspecified | CPT/HCPCS: 99212 ==

== ENCOUNTER 2024-02-06 15:25 | Outpatient (AMB) | payer MEDICARE, SELFPAY ==
[2024-02-06 15:28] VITALS: BP 120/68; PULSE 107; O2SAT 96
--- NOTE | 2024-02-06 15:28 | MHC.OFFVIS ---
Vital Signs 02/06/24 15:28 Height 4 ft 9 in BP 120/68 Blood Pressure Location Lt brachial Position Sitting Pulse 107 H Pulse Source Pulse Oximeter Pulse Oximetry (%) 96 Oxygen Delivery Method Room Air Intake Visit Reasons: copd Intake Note: pt is here for follow up and states she is wheezing and would like a replacement nebulizer. Nurse Orthopaedic Required: No Allergies No Known Allergies Allergy (Verified 02/06/24 15:45) Medication List - Last Reconciled 02/06/24 by Zehra Amador MD albuterol sulfate 90 mcg/actuation 0 mcg inhalation albuterol sulfate 2.5 mg (3 mL) inhalation Q4-6H PRN aspirin 81 mg PO DAILY atorvastatin 20 mg PO DAILY benzonatate 100 mg PO BID PRN calcium carbonate-vitamin D3 600 mg-5 mcg (200 unit) 1 tab PO QAM celecoxib 100 mg PO DAILY docusate sodium 100 mg PO DAILY famotidine 20 mg PO BID fluticasone furoate-vilanterol 100-25 mcg/dose (Breo Ellipta) 1 inh inhalation DAILY 90 days fluticasone furoate-vilanterol 100-25 mcg/dose (Breo Ellipta) 1 inh inhalation DAILY 90 days guaifenesin 400 mg PO TID PRN memantine 10 mg PO BID multivitamin 1 tab PO QAM Spiriva with HandiHaler (tiotropium bromide) 1 cap inhalation DAILY 30 days NS venlafaxine 75 mg PO DAILY Do you need a note to return to daycare/school/sports/work: No HPI HPI copd: Details: THIS 83 YEARS OLD VERY PLEASANT FEMALE WHO IS BROUGHT IN THE WHEELCHAIR, BY HER DAUGHTER, COMES FOR HER ROUTINE FOLLOW-UP FOR COPD. SHE HAS BEEN RELATIVELY STABLE WITHOUT ANY ACUTE EXACERBATION. SHE CONTINUES TO USE HER INHALERS INCLUDING BREO ELLIPTA, SPIRIVA HANDIHALER, AND USE OF ALBUTEROL SULFATE 2.5 MG (3 ML ) IN THE NEBULIZER ABOUT TWICE A DAY SHE DOES HAVE A FEELING OF CHEST CONGESTION OFF AND ON BUT IT CLEARS WITH THE USE OF NEBULIZER. LUCKILY SHE HAS HAD NO RECENT RESPIRATORY INFECTION. [facility] Medical History Cavitary lesion of lung Pneumonia COPD (chronic obstructive pulmonary disease) Depression Anxiety COPD (chronic obstructive pulmonary disease) Hyperlipidemia Surgical History History of ankle surgery Social History Are you a primary physician assistant primary care to a significant other at home: No Do you presently have visiting nurse or other home services: No Alcohol intake: never Patient Tobacco Use Status: Former Tobacco user Advance Directives Date on File: 05/02/16 Current occupation: rt handed Review of Systems Const All systems reviewed & are unremarkable except as noted in HPI and below Eyes Reports no additional complaints ENT Reports nasal congestion (Mild intermittent) Card Denies chest pain, Denies irregular heart rhythm and Denies leg edema Resp Reports as per HPI (AT PRESENT SHE DOES HAVE INCREASED AMOUNT OF COUGH) GI Reports heartburn (Mild GERD symptoms controlled with medicine) Reports no additional complaints Musc Reports abnormal gait (Impaired gait and she uses walker in the house) and Reports muscle weakness (Lower extremities) Skin/Breast Reports system reviewed and no additional complaints, except as documented Neuro Reports abnormal gait (Impaired gait and she uses walker in the house) and 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) Psych Reports no additional complaints and 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) Physical Exam Vital Signs: Last Vital Signs Pulse 107 H 02/06/24 15:28 BP 120/68 02/06/24 15:28 Pulse Ox 96 02/06/24 15:28 Oxygen Delivery Method Room Air 02/06/24 15:28 Const Other: Very pleasant, in wheelchair General: comfortable, no acute distress, alert and awake Orientation/consciousness: patient oriented x3 HEENT Head: Yes normal to inspection General nose exam: No nasal polyps present and No nasal discharge present Face and sinus: Yes sinuses nontender Mouth: oropharynx normal Throat: Yes posterior oropharynx normal Eyes General: appearance normal, both eyes and all related structures Neck Neck: Yes normal visual inspection, Yes no lymphadenopathy, Yes trachea midline and Yes no JVD Thyroid: Thyroid normal Chest Chest palpation & inspection: normal inspection of the chest, normal palpation of entire chest wall and no tenderness Resp Other: Percussion note is resonant . Breath sounds are distant with prolonged expiratory phase . On auscultation she does not have any localized crepitations or wheezes, both sides. are quite clear Cardio Palpation: normal PMI Rate: regular rate Rhythm: regular rhythm Heart sounds: no gallops and no murmurs GI Palpation (GI): Soft to palpation, nontender, No hepatosplenomegaly present and no masses Auscultation: normal bowel sounds Back/Spine/Pelvis Thoracic/Lumbar Spine: thoracic and lumbar spine normal to inspection and thoraco-lumbar ROM limited Skin General skin exam: no rashes or lesions noted Neuro General: patient oriented x3, No gait normal (Impaired gait and she uses walker for stability) and no focal motor deficits Cranial nerves: Yes CN's II-XII intact bilaterally Extrem General: Yes normal to inspection, Yes no clubbing, cyanosis or edema, Yes no calf tenderness and Yes other (Toes of both feet are cold, but peripheral pulses normal. ( vaso motor )) Psych Appearance: grossly normal and well kempt Speech and movement: Normal speech and movement present Assessment & Plan Assessment & Plan (1) COPD (chronic obstructive pulmonary disease): Comment: This patient has long-standing history of chronic obstructive pulmonary disease. As per PFT, COPD is moderately severe, without much response to bronchodilators. This seems to be related to her previous smoking but luckily she quit more than 20 years ago. Code(s): J44.9 - Chronic obstructive pulmonary disease, unspecified Category: Medical Plan: Continue using Breo 100-25 1 inhalation daily Spiriva HandiHaler. 1 inhalation daily Use albuterol solution 2.5 mg in the nebulizer twice a day as needed. Current nebulizer device is not functioning so a new unit is ordered. (2) Cough: Comment: Cough is mild to moderate and mainly related to COPD. Code(s): R05.9 - Cough, unspecified Category: Medical Plan: As under COPD Coding Level of Care Code Est Pt Level 3 (29954) Diagnoses COPD (chronic obstructive pulmonary disease) J44.9 Cough R05.9
== END 2024-02-06 15:50 | disposition home or self-care (01) ==
PROVIDERS: PCP Pediatrics; Visit Provider Internal Medicine
DX: J44.9 Chronic obstructive pulmonary disease, unspecified (principal); R05.9 Cough, unspecified
CPT/HCPCS: 99213

== ENCOUNTER → 2024-02-06 15:25 | Outpatient (BNVA) | payer MEDICARE, SELFPAY | PROVIDERS: PCP Pediatrics; Visit Provider Internal Medicine | DX: J44.9 Chronic obstructive pulmonary disease, unspecified (principal); R05.9 Cough, unspecified | CPT/HCPCS: 99212 ==

== ENCOUNTER 2024-02-17 09:53 | Outpatient (AMB) | payer MEDICARE, SELFPAY ==
--- NOTE | 2024-02-17 09:54 | AM.OFFWIN_ITS ---
Intake Vital Signs 02/17/24 09:59 Weight 123 lb BP 116/72 Blood Pressure Location Rt brachial Position Sitting Pulse 100 Pulse Source Pulse Oximeter Temp 97.5 F Temp Source Oral Pulse Oximetry (%) 99 Oxygen Delivery Method Room Air Intake Visit Reasons: EP Cough, wrist pain Intake Note: Patient here for right shoulder and wrist pain after fall yesterday morning. She also has a cough that has been present for about 2-3 days. Patient Tobacco Use Status: Former Tobacco user Allergies No Known Allergies Allergy (Verified 02/17/24 09:58) Do you need a note to return to daycare/school/sports/work: No HPI HPI Comments History of Present Illness Details 83 y/o female patient who presents to [facility] walk in clinic with c/o cough x 2-3 days. Pt also c/o right shoulder and right wrist pain since yesterday. Pt suffered a mechanical fall at home and landed on her right shoulder and wrist. [facility] Medical History (Updated 02/17/24 @ 10:23 by Yeni Xavier NP) Contusion of right wrist Contusion of right shoulder Cough in adult Contusion of left wrist Contusion of left shoulder Cavitary lesion of lung Pneumonia COPD (chronic obstructive pulmonary disease) Depression Anxiety COPD (chronic obstructive pulmonary disease) Hyperlipidemia Surgical History History of ankle surgery Social History Are you a primary rn intensive care unit to a significant other at home: No Do you presently have visiting nurse or other home services: No Alcohol intake: never Patient Tobacco Use Status: Former Tobacco user Advance Directives Date on File: 05/02/16 Current occupation: rt handed Review of Systems Const All systems reviewed & are unremarkable except as noted in HPI and below Physical Exam Vital Signs: Last Vital Signs Temp 97.5 F 02/17/24 09:59 Pulse 100 02/17/24 09:59 BP 116/72 02/17/24 09:59 Pulse Ox 99 02/17/24 09:59 Oxygen Delivery Method Room Air 02/17/24 09:59 Const General: cooperative and no acute distress Nutritional Appearance: obese Orientation/consciousness: patient oriented x3 Resp Effort & Inspection: normal respiratory effort and no cough Auscultation: clear to auscultation bilaterally, no crackles, no rales, no rhonchi and no wheezes Cardio Heart sounds: S1 normal heart sound present and S2 normal heart sound present Neuro General: patient oriented x3 Extrem Right upper extremity: shoulder/upper arm Details: tenderness Location: of the A-C joint and of the proximal humerus, swelling, abnormal ROM Details: pain with active ROM and pain with passive ROM and deformity; no crepitus and no unusual warmth and wrist (pain with ROM) Details: tenderness; no swelling and no crepitus Left upper extremity: normal to inspection and shoulder/upper arm Details: abnormal ROM; no swelling Psych Speech and movement: Normal speech and movement present Assessment & Plan Assessment & Plan (1) Cough in adult: Code(s): R05.9 - Cough, unspecified Plan: OTC cough remedies Lungs CTA Ordered Benzonatate RTC if not better. (2) Contusion of right shoulder: Code(s): S40.011A - Contusion of right shoulder, initial encounter Qualifiers: Encounter type: initial encounter Qualified Code(s): S40.011A - Contusion of right shoulder, initial encounter Plan: Ordered Xray, Prob Dislocated Right GHJ instability. Ordered Home PT Acetaminophen and NSAIDs for pain relief. IceHot Applied Shoulder immobilizer. (3) Contusion of right wrist: Code(s): S60.211A - Contusion of right wrist, initial encounter Qualifiers: Encounter type: initial encounter Qualified Code(s): S60.211A - Contusion of right wrist, initial encounter Plan: Ordered Wrist Xray ICE/HOT Orders: Orders PT Evaluation and Treatment Today S40.011A - Contusion of right shoulder, initial encounter XR shoulder RT min 2V Today S40.011A - Contusion of right shoulder, initial encounter, S60.211A - Contusion of right wrist, initial encounter XR hand wrist RT Today S40.011A - Contusion of right shoulder, initial encounter, S60.211A - Contusion of right wrist, initial encounter Medications: New benzonatate 100 mg PO TID 90 caps 0RF cough R05.9 - Cough, unspecified Coding Level of Care Code Est Pt Level 4 (63655) Diagnoses Cough in adult R05.9 Contusion of right shoulder, initial encounter S40.011A Encounter type: initial encounter Contusion of right wrist, initial encounter S60.211A Encounter type: initial encounter Time Spent (min) 20
[2024-02-17 09:59] VITALS: BP 116/72; PULSE 100; TEMP 36.4; O2SAT 99
== END 2024-02-17 13:58 | disposition home or self-care (01) ==
PROVIDERS: PCP Pediatrics; Visit Provider Nurse Practitioner Family
DX: R05.9 Cough, unspecified (principal); S40.011A Contusion of right shoulder, initial encounter; S60.211A Contusion of right wrist, initial encounter

== ENCOUNTER → 2024-02-17 09:53 | Outpatient (BNVA) | payer MEDICARE, SELFPAY | PROVIDERS: PCP Pediatrics; Visit Provider Nurse Practitioner Family ==

== ENCOUNTER 2024-02-17 10:19 | Outpatient (REF) | payer MEDICARE, SELFPAY ==
--- NOTE | ~2024-02-17 | XR_ITS ---
EXAMINATION: XR HAND/WRIST, RIGHT CLINICAL INFORMATION: Pain. Fall. COMPARISON: None available. TECHNIQUE: Three views of the right hand and wrist. FINDINGS: Osteopenia limits sensitivity. No visible acute fracture or dislocation. Arthritis present. More prominent changes of severe first CMC, first MCP joint arthritis. Chronic-appearing calcification/ossifications around the first CMC joint. Chronic-appearing calcifications in the ulnocarpal space, suggesting CPPD calcifications. Mild wrist soft tissue swelling. XR/XR hand wrist RT IMPRESSION: No radiographic evidence of acute fracture or dislocation. Osteopenia limits evaluation. If there are ongoing symptoms, clinical concern for a fracture, recommend repeat radiographs. Arthritis. Severe first CMC arthritis. Study is assigned for dictation on February 17, 2024 Electronically signed by: Jacinto Castillo MD 02/17/2024 02:04 PM EDT
--- NOTE | ~2024-02-17 | XR_ITS ---
EXAMINATION: XR SHOULDER, RIGHT CLINICAL INFORMATION: Shoulder pain. COMPARISON: None available. TECHNIQUE: Two views of the right shoulder. FINDINGS: Bones appear osteopenic. Mild-moderate acromioclavicular arthritis. On the AP projection, the humeral head overlaps of the glenoid, limiting evaluation of the glenohumeral joint space and the osseous structures.. No visible acute fracture or dislocation. There is a chronic-appearing linear calcification/ossification along the superior lateral aspect of the shoulder. No suspicious bony lesion is seen. No acute lung finding is seen. XR/XR shoulder RT min 2V IMPRESSION: Mild-moderate acromioclavicular arthritis. Limited evaluation of the glenohumeral joint space. Overlapping densities on the AP projection limiting evaluation of the osseous structures. No radiographically evident acute fracture , in the provided views. Osteopenia. Study is assigned for dictation on February 17, 2024 Electronically signed by: Jacinto Castillo MD 02/17/2024 01:05 PM EDT
== END 2024-02-17 10:20 | disposition home or self-care (01) ==
LOC: HO.HMGCX 10:19
PROVIDERS: PCP Pediatrics; Visit Provider Nurse Practitioner Family
DX: S60.211A Contusion of right wrist, initial encounter (principal); S04.011A Injury of optic nerve, right eye, initial encounter; R05.9 Cough, unspecified
CPT/HCPCS: 73030; 73110; 73130; 99212

== ENCOUNTER 2024-02-29 10:33 | Outpatient (REF) | payer MEDICARE, SELFPAY ==
--- NOTE | ~2024-02-29 | XR_ITS ---
EXAMINATION: XR CHEST CLINICAL INFORMATION: Right lower crackles with question of pneumonia COMPARISON: Chest radiograph 09/05/23. TECHNIQUE: 2 views of the chest were obtained. FINDINGS: The previously seen nodular opacities on the 09/05/23 study the largest of which was cavitary are not seen on the current exam. The heart and pulmonary vessels appear normal. There is underlying COPD with hyperinflation. No infiltrates, effusions or lung masses are seen. Degenerative changes are present in both shoulders. XR/XR chest 2V IMPRESSION: No acute intrathoracic disease. Previously seen nodular opacities are not seen on the current exam. Electronically signed by: Liborio Eugene MD 02/29/2024 03:08 PM EDT RP
== END 2024-02-29 10:34 | disposition home or self-care (01) ==
LOC: HO.HMGCX 10:33
PROVIDERS: PCP Pediatrics; Visit Provider Pediatrics
DX: R05.3 Chronic cough (principal); J44.9 Chronic obstructive pulmonary disease, unspecified
CPT/HCPCS: 71046

== ENCOUNTER 2024-04-16 09:59 | Outpatient (REF) | payer MEDICARE, SELFPAY ==
[2024-04-16 14:20] LABS: Influenza A PCR NEGATIVE (Negative); Influenza B PCR NEGATIVE (Negative); Resp Syncy Virus RNA Qual PCR NEGATIVE (Negative); SARS COV2 PCR INHOUSE NEGATIVE (Negative)
== END 2024-04-16 10:00 | disposition home or self-care (01) ==
LOC: HO.LAB 09:59
PROVIDERS: Physician Assistant; PCP Pediatrics
DX: Z13.89 Encounter for screening for other disorder (principal)
CPT/HCPCS: 0241U; 99202

== ENCOUNTER 2024-04-16 09:59 | Outpatient (AMB) | payer MEDICARE, SELFPAY ==
--- NOTE | 2024-04-16 10:00 | MHC.OFFWIV ---
Intake Vital Signs 04/16/24 10:01 Height 4 ft 9 in Weight 123 lb BMI 26.6 BP 122/84 Blood Pressure Location Rt brachial Position Sitting Pulse 96 Pulse Source Pulse Oximeter Temp 97.2 F Temp Source Temporal Artery Scan Pulse Oximetry (%) 94 Oxygen Delivery Method Room Air Intake Visit Reasons: EP-chest congestion x3days HX:copd Intake Note: Pt presents to the office today for c/o chest congestion and yellow mucus x3 days. Patient Tobacco Use Status: Former Tobacco user Allergies No Known Allergies Allergy (Verified 04/16/24 10:03) HPI HPI Comments History of Present Illness Details History The patient is an 84-year-old female presenting with respiratory symptoms and suspected bacterial pneumonia. She reports congestion and a mild cold. The patient has a history of Chronic Obstructive Pulmonary Disease (COPD) and typically uses Breo, Pariva, and a rescue inhaler. She has not required the use of the rescue inhaler more frequently than usual. The patient denies any episodes of wheezing or shortness of breath beyond her baseline COPD-related symptoms. There is no history of fever or noticeable gastrointestinal symptoms. However, she is experiencing a cough producing a small amount of yellowish sputum and a slight headache with pressure, though she reports no significant sinus pain. The patient lives with someone who has recently experienced similar cold symptoms. She denies being diabetic and reports no significant pain behind her ear or in response to sinus pressure. she denies fever but does admit to a slight headache. Physical Exam General: Cooperative, healthy appearing, comfortable and no acute distress Orientation/consciousness: Patient oriented x3 Limitations: in wheelchair Head: Normal to inspection Ears: Hearing grossly normal bilaterally, external ears normal, right TM normal, left TM purlent effusion and erythema Nose: Normal external nose present, Normal nares present and No nasal discharge present Face and sinus: Normal facial exam and Yes sinuses nontender Mouth: Normal oral and palatal mucosa present and moist mucous membranes Throat: Yes tonsils normal, Yes uvula midline. Posterior oropharynx erythema Eyes: Appearance normal, both eyes and all related structures Neck: Normal visual inspection Respiratory: Expiratory wheezes throughout, vesicular lung sounds throughout. Normal respiratory effort, able to speak in complete sentences, Actively coughing, no respiratory distress, not tachypneic, no tripod positioning and no use of accessory muscles Cardiovascular: Regular rate and rhythm. Normal S1 and S2 Skin: No rashes or lesions noted Neuro: Patient oriented x3 Extremities: Normal to inspection and Yes no clubbing, cyanosis or edema [facility] Medical History (Updated 04/16/24 @ 10:21 by Tiny Rodríguez PA-C) Contusion of right wrist Contusion of right shoulder Cough in adult Contusion of left wrist Contusion of left shoulder Cavitary lesion of lung Pneumonia COPD (chronic obstructive pulmonary disease) Depression Anxiety COPD (chronic obstructive pulmonary disease) Hyperlipidemia Surgical History History of ankle surgery Social History Are you a primary nurse behavioral health care to a significant other at home: No Do you presently have visiting nurse or other home services: No Alcohol intake: never Patient Tobacco Use Status: Former Tobacco user Advance Directives Date on File: 05/02/16 Current occupation: rt handed Review of Systems Const All systems reviewed & are unremarkable except as noted in HPI and below Physical Exam Vital Signs: Last Vital Signs Temp 97.2 F 04/16/24 10:01 Pulse 96 04/16/24 10:01 BP 122/84 04/16/24 10:01 Pulse Ox 94 04/16/24 10:01 Oxygen Delivery Method Room Air 04/16/24 10:01 BMI result Body Mass Index 26.6 Assessment & Plan Assessment & Plan (1) URI, acute: Code(s): J06.9 - Acute upper respiratory infection, unspecified Plan: Plan - Initiate Augmentin to address the acute otitis media and cover for potential pneumonia. - Order a chest X-ray to evaluate for pneumonia. If pneumonia is confirmed, will add azithromycin Z-Tru for further management. - Prescribe prednisone 40 mg daily for five days to manage pronounced wheezing and possible exacerbation of COPD. - Conduct tests for influenza, COVID-19, and RSV to rule out viral infections. - Ensure the patient proceeds for the chest X-ray; she is aware of the registration and location process. - Results will be communicated to the patient or her designated contact promptly upon availability. Patient was informed and verbally consented to the use of an ambient scribe for clinic note documentation during this visit (2) Otitis media: Code(s): H66.90 - Otitis media, unspecified, unspecified ear Qualifiers: Otitis media type: suppurative Chronicity: acute Laterality: left Recurrence: non-recurrent Spontaneous tympanic membrane rupture: without spontaneous rupture Qualified Code(s): H66.002 - Acute suppurative otitis media without spontaneous rupture of ear drum, left ear Plan: as above (3) COPD exacerbation: Comment: Code(s): J44.1 - Chronic obstructive pulmonary disease with (acute) exacerbation Plan: as above Orders: Orders SARS-CoV2/FLU/RSV Today J06.9 - Acute upper respiratory infection, unspecified XR chest 2V Today R05.9 - Cough, unspecified Medications: New prednisone 40 mg (2 x 20 mg) PO DAILY 10 tabs 0RF amoxicillin-pot clavulanate 875-125 mg 1 tab PO Q12H 14 tabs 0RF Coding Level of Care Code New Pt Level 4 (89923) Diagnoses URI, acute J06.9 Non-recurrent acute suppurative otitis media of left ear without spontaneous rupture of tympanic membrane H66.002 Otitis media type: suppurative Chronicity: acute Laterality: left Recurrence: non-recurrent Spontaneous tympanic membrane rupture: without spontaneous rupture COPD exacerbation J44.1
[2024-04-16 10:01] VITALS: BP 122/84; PULSE 96; TEMP 36.2; O2SAT 94; BMI 26.6
== END 2024-04-16 10:34 | disposition home or self-care (01) ==
PROVIDERS: PCP Pediatrics; Visit Provider Physician Assistant
DX: J06.9 Acute upper respiratory infection, unspecified (principal); H66.002 Acute suppurative otitis media without spontaneous rupture of ear drum, left ear; J44.1 Chronic obstructive pulmonary disease with (acute) exacerbation

== ENCOUNTER 2024-04-16 10:18 | Outpatient (REF) | payer MEDICARE, SELFPAY ==
--- NOTE | ~2024-04-16 | XR_ITS ---
EXAMINATION: XR CHEST CLINICAL INFORMATION: R05.9 - Cough, unspecified COMPARISON: 02/29/2024 TECHNIQUE: 2 views of the chest were obtained. FINDINGS: Redemonstration of emphysematous changes with hyperinflated lungs. Degenerative changes of the bilateral shoulders and thoracic spine. Heart size within normal limits. Increased left basilar opacities. Subtle increased opacification of the retrosternal clear space. Persistent blunting of the posterior sulci, possibly representing pleural thickening and/or pleural effusions. XR/XR chest 2V IMPRESSION: 1. Redemonstration of emphysematous changes with hyperinflated lungs. 2. Increased left basilar opacities. Subtle increased opacification of the retrosternal clear space. 3. Persistent blunting of the posterior sulci, possibly representing pleural thickening and/or pleural effusions. This study was presented today to April 16, 2024 for interpretation. Stat results provided at this time as requested by referring provider. Electronically signed by: Isabel Whitlock MD 04/16/2024 12:39 PM [facility]
== END 2024-04-16 10:19 | disposition home or self-care (01) ==
LOC: HO.HMGCX 10:18
PROVIDERS: PCP Pediatrics; Visit Provider Physician Assistant
DX: R05.9 Cough, unspecified (principal); J06.9 Acute upper respiratory infection, unspecified; J44.1 Chronic obstructive pulmonary disease with (acute) exacerbation; H66.002 Acute suppurative otitis media without spontaneous rupture of ear drum, left ear
CPT/HCPCS: 0241U; 71046; 99202

== ENCOUNTER 2024-06-23 09:43 | Outpatient (AMB) | payer MEDICARE, SELFPAY ==
--- OUTSIDE RECORDS SUMMARY | 2024-06-23 09:48 | XMS_ITS | Clinical Summary ---
Author Organization [employer] Address [address] [place] [address] 7[address] [place] [address] Care Team Providers Care Minibus Driver Name Role Phone Lin Floyd MD Primary Care Provider [phone] Allergies No known active allergies Medications Melatonin 3 MG capsule take 1 capsule orally qhs 02/20/20 21 Active acetaminophen (Tylenol) 500 MG tablet take 2 tablet by oral route every 12 hours as needed for Pain,Moderate 4-6 On Pain Scale 02/19/20 19 Active benzonatate (Tessalon) 100 MG capsule TAKE ONE CAPSULE EVERY TWELVE HOURS NEEDED 30 capsule 12/29/19 23 Active Fluticasone Furoate-Vilante rol (Breo Ellipta) 100-25 MCG/ACT aerosol powder INHALE 1 PUFF DAILY AT THE SAME TIME EACH DAY 28 each 11 03/10/20 23 Active tiotropium (Spiriva HandiHaler) 18 MCG inhalation capsuleIndicati ons:COPD mixed type (CMS/HCC) USE 1 CAPSULE FOR INHALATION ONCE A DAY DO NOT SWALLOW CAPSULE 30 capsule 11 06/30/19 24 Active Aspirin Adult Low Strength 81 MG EC tablet TAKE ONE TABLET EVERY NIGHT AT BEDTIME 30 tablet 11 09/12/19 24 Active albuterol 108 (90 Base) MCG/ACT inhalerIndicati ons:Simple chronic bronchitis (CMS/HCC) INHALE TWO PUFFS FOUR TIMES DAILY NEEDED 8.5 g 2 09/22/19 24 Active celecoxib (CeleBREX) 100 MG capsuleIndicati ons:Pain TAKE ONE CAPSULE BY MOUTH EVERY DAY WITH FOOD NEEDED 30 capsule 3 01/09/20 24 Active venlafaxine XR (Effexor XR) 75 MG 24 hr capsule TAKE ONE CAPSULE EVERY EVENING WITH FOOD 30 capsule 11 02/28/20 24 Active albuterol (2.5 MG/3ML) 0.083% nebulizer solutionIndicat ions:Chronic bronchitis, unspecified chronic bronchitis type (CMS/HCC) USE ONE AMPULE USING A NEBULIZER EVERY 4 HOURS NEEDED 90 mL 3 04/19/20 24 Active Multiple Vitamin (Multivitamin) tablet TAKE ONE TABLET EVERY MORNING 90 tablet 4 04/30/20 24 Active famotidine (Pepcid) 20 MG tabletIndicatio ns:Gastroesopha geal reflux disease without esophagitis TAKE ONE TABLET IN THE MORNING AND EVENING 180 tablet 4 04/30/20 24 Active Calcium Carb-Cholecalci ferol 600-5 MG-MCG tabletIndicatio ns:Gastroesopha geal reflux disease without esophagitis TAKE ONE TABLET EVERY MORNING 90 tablet 4 04/30/20 24 Active atorvastatin (Lipitor) 20 MG tablet TAKE ONE TABLET EVERY NIGHT AT BEDTIME 90 tablet 4 04/30/20 24 Active QUEtiapine (SEROquel) 25 MG tablet TAKE ONE-HALF TABLET EVERY NIGHT AT BEDTIME NEEDED SLEEP 15 tablet 3 05/25/19 25 Active memantine (Namenda) 10 MG tablet TAKE ONE TABLET IN THE MORNING AND EVENING 180 tablet 3 06/01/19 25 Active memantine (Namenda) 10 MG tablet TAKE ONE TABLET IN THE MORNING AND EVENING 180 tablet 4 04/18/20 23 025 Discontinued QUEtiapine (SEROquel) 25 MG tablet Give half a tab at bedtime for insomnia 30 tablet 3 10/27/19 24 025 Discontinued Active Problems Problem Noted Date Diagnosed Date Severe chronic obstructive pulmonary disease 07/2022 COPD with acute exacerbation 08/03/2022 Assessment & Plan (08/03/2022 4:25 PM EDT): Patient with wheezing on expiratory phase, will treat for COPD exacerbation. Antibiotics and steroid, rtc if worsening symptoms or no improvement. 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 Asthma 07/27/2011 Anxiety state 07/27/2011 Arthropathy 07/27/2011 Allergic rhinitis 07/27/2011 Encounters Date Type Department Care Team Description 06/01/2024 Refill [facility] [address] [place] [address] Lin Floyd MD 05/25/2024 Refill [facility] [address] [place] [address] Lin Floyd MD 04/30/2024 Refill [facility] [address] [place] [address] Lin Floyd MD Gastroesophageal reflux disease without esophagitis 04/19/2024 Refill [facility] [address] [place], [place] [address] Lin Floyd MD Chronic bronchitis, unspecified chronic bronchitis type ([facility]) 04/16/2024 Orders Only [facility] External Provider, [facility] 04/12/2024 Telephone [facility] MEDICINE [address] [place] [address] Lin Floyd MD callback requested from Last 3 Months Immunizations Name Administration Dates Next Due Influenza High-dose Quadriva lent Preservative Free 02/23/2023,01/25/2022,02/19/2021 Influenza injectable quadriv alent IIV4 with preservative 01/21/2015 Influenza injectable quadriv alent preservative free 02/19/2020 Influenza, High Dose Seasona l, Preservative Free 02/01/2019 Influenza, IIV3, injectable 02/15/2014 Influenza, Split (incl. socorro fied surface antigen) 01/19/2013,02/11/2012 Pfizer Covid-19 Vaccine 12+ 05/09/2023 Pneumococcal Conjugate PCV 13 01/21/2015 Pneumococcal Polysaccharide PPSV23 02/01/2019, Tdap 06/03/2015 Zoster, live 06/03/2015 Social History Tobacco Use Types Packs/Day Years Used Date Smoking Tobacco: Former Cigarettes Passive Smoke Exposure: Never Tobacco Cessation:Counseling Given: Not Answered Housing Stability Answer Date Recorded What is your housing situation today? I have adan león 05/09/[address] you li ve. Do you have problems with any of the following? None of the above 05/09/2023 Food Insecurity Answer Date Recorded Within the past 12 months, y ou worried that your food would run out before you got money to buy more: Never True 05/09/2023 Within the past 12 months,th e food you bought just didn't last and you didn't have enough money to get more: Never True 12/2023 Transportation Answer Date Recorded In the past 12 months, has l ack of transportation kept you from medical appts, meetings, work or from getting things needed for daily living? No 05/09/2023 Utilities Answer Date Recorded In the past 12 months, has t he electric, gas, oil or water company threatened to shut off services in your home? No 05/09/2023 Comments Unknown Sex and Gender Information Value Date Recorded Sex Assigned at Female 03/01/2022 10:18 AM EDT Legal Sex Female 10:18 AM EDT Gender Identity Female 03/01/2022 10:18 AM EDT Sexual Orientation Straight 03/01/2022 10 :18 AM EDT Last Filed Vital Signs Vital Sign Reading Time Taken Comments Blood Pressure 149/66 02/29/2024 9:35 AM EDT Pulse 98 02/29/2024 9:56 AM EDT Temperature 37.2 ??C (98.9 ??F) 02/29/2024 9:35 AM ED T Respiratory Rate 20 02/29/2024 9:35 AM EDT Oxygen Saturation 94% 11/22/2023 1:58 PM EDT Inhaled Oxygen Concentration - - Weight 60.3 kg (133 lb) 02/29/2024 9:35 AM EDT Height 144.8 cm (4' 9 ) 02/29/2024 9:35 AM EDT Body Mass Index 28.78 02/29/2024 9:35 AM EDT Plan of Treatment Health Maintenance Due Date Last Done Comments Depression Screening 1940 Alcohol/Substance Use Screening 1950 RSV Patients and Patients Aged 60 years or older (1 - 1-dose 75+ series) 2013 Zoster Vaccines (2 of 3) 07/29/2015 06/03/2015 COVID-19 Vaccine (5 - 2024-25 season) 2024 05/09/2023, 02/10/2021, 07/07/2020, Additional history exists Influenza Vaccine (#1) 2024 , 01/25/2022, 02/19/2021, Additional history exists SDOH Screening 05/09/2024 05/09/2023 Tobacco Screening 02/28/2025 02/29/2024 DTaP/Tdap/Td Vaccines (2 - Td or Tdap) 06/03/2025 06/03/2015 Pneumococcal Vaccine: 50+ Years Completed 02/01/2019, 01/21/2015, 08/13/2013 HIB Vaccines Aged Out No longer eligi ble based on patient's age to complete this topic HPV Vaccines Aged Out No longer eligi ble based on patient's age to complete this topic Hepatitis A Vaccines Aged Out No long er eligible based on patient's age to complete this topic Hepatitis B Vaccines Aged Out No long er eligible based on patient's age to complete this topic IPV Vaccines Aged Out No longer eligi ble based on patient's age to complete this topic Meningococcal Vaccine Aged Out No manny babak eligible based on patient's age to complete this topic RSV under 20 months Aged Out No longe r eligible based on patient's age to complete this topic Rotavirus Vaccines Aged Out No longer eligible based on patient's age to complete this topic Procedures Procedure Name Priority Date/Time Associated Diagnosis Comments XR CHEST 2 VIEWS Routine 04/16/2024 10:2 2 AM EST SARS COV2/INFLUENZA A/B AND RSV RNA QL NAAT Routine 04/16/2024 9:59 AM EST from Last 3 Months Results * XR Chest 2 Views (04/16/2024 10:22 AM EST) Anatomical Region Laterality Modality Chest Radiographic Marisa ging 04/16/2024 10:2 2 AM EST Narrative 04/16/2024 12:42 PM EST ? [facility] ?[address] ? [place] [address] ?XRay Report ? Signed ? Patient: Rodriguez,Cyndie ?MR#: [id number] ?? [id number] ? : 1940 ?Acct:[id number] ? Age/Sex: 84 / F ?ADM Date: 04/16/24 ? Loc: HO.HMGCX ? Attending Dr: Tiny Rodríguez PA-C ? Ordering Physician: Tiny Rodríguez PA-C ?? Date of Service: 04/16/24 ?? Procedure(s): XR chest 2V ?? Accession Number(s): [id number] ? cc: Lin Floyd MD; Tiny Rodríguez PA-C ? EXAMINATION: ?? XR CHEST ? CLINICAL INFORMATION: ?? R05.9 - Cough, unspecified ? COMPARISON: ?? 02/29/2024 ? TECHNIQUE: ?? 2 views of the chest were obtained. ? FINDINGS: ?? Redemonstration of emphysematous changes with hyperinflated lungs. ?? Degenerative changes of the bilateral shoulders and thoracic spine. ? Heart size within normal limits. Increased left basilar opacities. ?? Subtle increased opacification of the retrosternal clear space. ?? Persistent blunting of the posterior sulci, possibly representing ?? pleural thickening and/or pleural effusions. ? XR/XR chest 2V ?? IMPRESSION: ? 1. Redemonstration of emphysematous changes with hyperinflated lungs. ?? 2. Increased left basilar opacities. Subtle increased opacification of ?? the retrosternal clear space. ?? 3. Persistent blunting of the posterior sulci, possibly representing ?? pleural thickening and/or pleural effusions. ? This study was presented today to April 16, 2024 for interpretation. ?? Stat results provided at this time as requested by referring provider. ? Electronically signed by: ??Isabel Whitlock MD ??04/16/2024 12:39 PM EST ?? RP ? Dictated By: ?Isabel Whitlock MD ? Signed By: ?<Electronically signed by Isabel Whitlock MD in OV> ? 04/16/24 1239 ? DD/ 1022 ? TD/TT: 04/16/24 1030 ? Automotive Product Specialist: ? Procedure Note Shmuel, Colby - 04/16/2024 [facility] [address] [place] [address] XRay Report Signed Patient: Cyndie Rodriguez#: [id number] : 8Acct:[id number] Age/Sex: 84 / FADM Date: 04/16/24 Loc: HO.HMGCX Attending Dr: Tiny Rodríguez PA-C Ordering Physician: Tiny Rodríguez PA-C Date of Service: 04/16/24 Procedure(s): XR chest 2V Accession Number(s): [id number] cc: Lin Floyd MD; Tiny Rodríguez PA-C EXAMINATION: XR CHEST CLINICAL INFORMATION: R05.9 - Cough, unspecified COMPARISON: 02/29/2024 TECHNIQUE: 2 views of the chest were obtained. FINDINGS: Redemonstration of emphysematous changes with hyperinflated lungs. Degenerative changes of the bilateral shoulders and thoracic spine. Heart size within normal limits. Increased left basilar opacities. Subtle increased opacification of the retrosternal clear space. Persistent blunting of the posterior sulci, possibly representing pleural thickening and/or pleural effusions. XR/XR chest 2V IMPRESSION: 1. Redemonstration of emphysematous changes with hyperinflated lungs. 2. Increased left basilar opacities. Subtle increased opacification of the retrosternal clear space. 3. Persistent blunting of the posterior sulci, possibly representing pleural thickening and/or pleural effusions. This study was presented today to April 16, 2024 for interpretation. Stat results provided at this time as requested by referring provider. Electronically signed by: Isabel Whitlock MD 04/16/2024 12:39 PM EST Dictated By: Isabel Whitlock MD Signed By: <Electronically signed by Isabel Whitlock MD in OV> 04/16/24 1239 DD/ 1022 TD/TT: 04/16/24 1030 Automotive Product Specialist: [facility] External Provider IMG XR PROCEDURES Edited Result - Final * SARS-CoV-2 RNA, Influenza A/B, and RSV RNA, Ql NAAT (04/16/2024 9:59 AM EST) Influenza A PCR NEGATIVE Negative [facility] Influenza B PCR NEGATIVE Negative [facility] Resp Syncy Virus RNA Qual PCR NEGATIVE Negative [facility] SARS COV2 PCR NEGATIVE Negative [facility] Comment:All test results mus t be correlated with clinical findings.Negative results do not preclude SARS-CoV2, influenza Avirus, influenza B virus and/or RSV infectionand should not be used as the sole basis for treatment orother patient management decisions. Negative results must becombined with clinical observations, patient history, andepidemiological information.This test has not been evaluated for monitoring treatment ofinfection.This test has been authorized by the FDA under an EmergencyUse Authorization (EUA) for use by authorized laboratories.Testing performed on the [employer] GeneXpert utilizingreal-time RT-PCR.All SARS CoV2 and positive influenza A/B results arereported to [facility]. 04/16/2024 9:59 AM EST 04/16/2024 1:23 PM EST us Generic External Data Provider LAB MICROBIOLOGY - GENERAL ORDERABLES Final Result [facility] [address] [place] [address] [phone] from Last 3 Months Insurance # [address] [place] [address] [facility] [employer] Advance Directives Documents on File Type Date Recorded Patient Vision Teacher Expl anation HealthCare Proxy 04/26/2023 Health Care Proxy Care Teams Minibus Driver Relationship Specialty Start Date End Date Lin Floyd MD [address] [facility] [place] [address] PCP - General Family Medicine 05/02/18
--- OUTSIDE RECORDS SUMMARY | 2024-06-23 09:48 | XMS_ITS | Encounter Summary ---
Author Organization [employer] Address [address] [place] [address] Care Team Providers Care Integrity Analyst Name Role Phone Lin Floyd MD Primary Care Provider [phone] Encounter Details Date Type Department Care Team ([facility] Contact Info) Description 09/06/2023 Orders Only [facility] & PEDS [address] [place] [address] Provider, MD Viv Social History Tobacco Use Types Packs/Day Years Used Date Smoking Tobacco: Former Cigarettes Housing Stability Answer Date Recorded What is your housing situation today? I have adan sing 05/09/[address] you li [...] Orientation Straight 03/01/2022 10 :18 AM EDT documented as of this encounter Plan of Treatment Not on file documented as of this encounter Procedures Procedure Name Priority Date/Time Associated Diagnosis Comments XR CHEST 2 VIEWS Routine 09/06/2023 4:19 PM EDT documented in this encounter Results * XR Chest 2 Views (09/06/2023 4:19 PM EDT) Anatomical Region Laterality Modality Chest Radiographic Marisa ging us Historical Provider MD DELCID XR PROCEDURES Final R esult documented in this encounter Visit Diagnoses Not on filedocumented in this encounter Care Teams Integrity Analyst Relationship Specialty Start Date End Date Lin Floyd MD [address] [place] [address] PCP - General Family Medicine 05/02/18 documented as of this encounter
--- OUTSIDE RECORDS SUMMARY | 2024-06-23 09:48 | XMS_ITS | Encounter Summary ---
Author Organization [employer] Address [address] [place] [address] Care Team Providers Care Climatology Professor Name Role Phone Lin Floyd MD Primary Care Provider [phone] Reason for Visit * Reason Comments Med Refill Encounter Details Date Type Department Care Team ([facility] Contact Info) Description 06/01/2024 Refill [facility] PEDS [address] [place] [address] Lin Floyd MD [address] [place] [address] Social History Tobacco Use Types Packs/Day Years Used Date Smoking Tobacco: Former Cigarettes Passive Smoke Exposure: Never Housing Stability Answer Date Recorded What is [...] on file documented as of this encounter Visit Diagnoses Not on filedocumented in this encounter Care Teams Climatology Professor Relationship Specialty Start Date End Date Lin Floyd MD [address] [place] [address] PCP - General Family Medicine 05/02/18 documented as of this encounter
--- OUTSIDE RECORDS SUMMARY | 2024-06-23 09:48 | XMS_ITS | Encounter Summary ---
Author Organization [employer] Address [address]t [place] [address] Care Team Providers Care Director Of Social Services Name Role Phone Lin Floyd MD Primary Care Provider [phone] Reason for Visit * Reason Onset Date Comments callback requested 04/12/2024 Encounter Details Date Type Department Care Team ([facility] Contact Info) Description 04/12/2024 Telephone [facility]INE [address] [place] [address] Lin Floyd MD [address] [place] [address] callback requested Social History Tobacco Use Types Packs/Day Years [...] AM EDT documented as of this encounter Miscellaneous Notes * Telephone Encounter - Wing Trung RN - 04/13/2024 10:00 AM EST Phone number provided by call center does not work. Called [facility] directly. Left messagefor Luz Cowart, occupational therapist director to call back. In future, call main number of [phone], ext: [phone]. * Telephone Encounter - Dyan Wolf - 04/12/2024 4:29 PM EST [facility]c from [place] [facility] requesting a callback (no further info discussed) [phone] documented in this encounter Plan of Treatment Not on file documented as of this encounter Visit Diagnoses Not on filedocumented in this encounter Care Teams Director Of Social Services Relationship Specialty Start Date End Date Lin Floyd MD [address] [place] [address] PCP - General Family Medicine 05/02/18 documented as of this encounter
--- OUTSIDE RECORDS SUMMARY | 2024-06-23 09:48 | XMS_ITS | Encounter Summary ---
Author Organization [employer] [facility] Address [address] [place] [address] [address] [place] [address] Care Team Providers Care Special Client Bus Driver Name Role Phone Lin Floyd MD Primary Care Provider [phone] Reason for Visit * Reason Comments Med Refill Encounter Details Date Type Department Care Team ([facility] Contact Info) Description 10/20/2022 Refill [facility] PEDS [address] [place] [address] Jennifer Friedman MD [address] [place] [address] Social History Tobacco Use Types Packs/Day Years Used Date Smoking Tobacco: Former Cigarettes Comments Unknown Sex and Gender Information Value [...] on filedocumented in this encounter Care Teams Special Client Bus Driver Relationship Specialty Start Date End Date Lin Floyd MD [address] [place] [address] PCP - General Family Medicine 05/02/18 documented as of this encounter
--- OUTSIDE RECORDS SUMMARY | 2024-06-23 09:48 | XMS_ITS | Clinical Summary ---
Author Organization [facility] it Address [address] [place] [address] Care Team Providers Care Machine Cage Maker Name Role Phone Unavailable Primary Care Provider Unavailabl e Social History Tobacco Use Types Packs/Day Years Used Date Smoking Tobacco: Never Assessed Comments Unknown Sex and Gender Information Value Date Recorded Sex Assigned at Not on file Legal Sex Female 2:26 AM EST Gender Identity Not on file Sexual Orientation Not on file Plan of Treatment Health Maintenance Due Date Last Done Comments DTaP,Tdap,and Td Vaccines (1 - Tdap) 1957 Zoster Vaccines (1 of 2) 1988 RSV Immunization Patients 60 + Years Old (1 - 1-dose 75+ series) 2013 Pneumococcal Vaccine: 50+ Years (2 of 2 - PCV) 02/02/2020 02/01/2019 Depression Screening 12/26/2023 Falls Risk Assessment 12/26/2023 Osteoporosis Screening (Bone Density Screening) 12/26/2023 Social Influencers of Health Screening 12/26/2023 COVID-19 Vaccine ( - 2023-2 5 season) 2024 Influenza Vaccine (#1) 2024 06/06/2018 HIB Vaccines Aged Out No longer eligi [...] on patient's age to complete this topic MMR Vaccines Aged Out No longer eligi ble based on patient's age to complete this topic Meningococcal ACWY Vaccine Aged Out N o longer eligible based on patient's age to complete this topic Meningococcal B Vacine Aged Out No lo nger eligible based on patient's age to complete this topic RSV Immunization Patients Under 20 months Aged Out No longer eligible b ased on patient's age to complete this topic Varicella Vaccines Aged Out No longer eligible based on patient's age to complete this topic
--- OUTSIDE RECORDS SUMMARY | 2024-06-23 09:48 | XMS_ITS | Encounter Summary ---
Author Organization [employer] Address [address] [facility] [address] [place] [address] Care Team Providers Care Flight Surgeon Name Role Phone Lin Floyd MD Primary Care Provider [phone] Reason for Visit * Reason Comments Med Refill Encounter Details Date Type Department Care Team ([facility] Contact Info) Description 05/25/2024 Refill [facility] MED [facility] PEDS [address] [place] [address] Lin Floyd MD [address] [place] [address] Social History Tobacco Use Types Packs/Day Years [...] on filedocumented in this encounter Care Teams Flight Surgeon Relationship Specialty Start Date End Date Lin Floyd MD [address] [place] [address] PCP - General Family Medicine 05/02/18 documented as of this encounter
--- NOTE | 2024-06-23 11:09 | MHC.OFFWIV ---
Intake Vital Signs 06/23/24 11:23 Height 4 ft 9 in Weight 123 lb BMI 26.6 BP 122/76 Blood Pressure Location Lt brachial Position Sitting Respiration 16 Pulse 125 H Pulse Source Pulse Oximeter Temp 99.4 F Temp Source Oral Pulse Oximetry (%) 92 Oxygen Delivery Method Room Air Intake Visit Reasons: EP-SOB, cough, diarrhea Intake Note: Pt is here today c/o SOB, cough x1day Patient Tobacco Use Status: Former Tobacco user Allergies No Known Allergies Allergy (Verified 06/23/24 11:23) HPI EP-SOB, cough, diarrhea HPI Details Patient is an 84-year-old Estonian-speaking female with history of COPD bronchitis comes to the walk-in clinic with family member, who has acute cough. Apparently it kept her awake most of the night. Family reports that she is also very sleepy today due to lack of sleep, and she also has dementia, so mental status is sometimes difficult to measure. However she has more shaky than usual, and they had attributed this to her bronchodilator updraft which was done about 3 hours prior to evaluation. She also has had loose stools also, however family attributes this to extra dose of stool softener as she had recently been constipated. Further history difficult to ascertain due to mental status. [facility] Medical History Contusion of right wrist Contusion of right shoulder Cough in adult Contusion of left wrist Contusion of left shoulder Cavitary lesion of lung Pneumonia COPD (chronic obstructive pulmonary disease) Depression Anxiety COPD (chronic obstructive pulmonary disease) Hyperlipidemia Surgical History History of ankle surgery Social History Are you a primary career based intervention coordinator to a significant other at home: No Do you presently have visiting nurse or other home services: No Alcohol intake: never Patient Tobacco Use Status: Former Tobacco user Advance Directives Date on File: 05/02/16 Current occupation: rt handed Review of Systems Const All systems reviewed & are unremarkable except as noted in HPI and below Neuro Reports confusion (Baseline per family) Psych Reports confusion (Baseline per family) Physical Exam Vital Signs: Last Vital Signs Temp 99.4 F 06/23/24 11:23 Pulse 125 H 06/23/24 11:23 Resp 16 06/23/24 11:23 BP 122/76 06/23/24 11:23 Pulse Ox 92 06/23/24 11:23 Oxygen Delivery Method Room Air 06/23/24 11:23 BMI result Body Mass Index 26.6 Const General: cooperative, comfortable, confusion (Baseline per family), lethargic and tired appearing (Eyes closed most of the evaluation); No healthy appearing, alert or anxious Orientation/consciousness: confusion (Baseline per family) and lethargic Limitations: wheelchair Eyes General: appearance normal, both eyes and all related structures Chest Chest palpation & inspection: normal palpation of entire chest wall Resp Effort & Inspection: normal respiratory effort, able to speak in complete sentences, no audible wheezes, Actively coughing Quality: productive, respiratory effort not decreased, no grunting, not labored, no nasal flaring, no respiratory distress, no retractions, no stridor, No prolonged expiratory phase and symmetric chest movement Auscultation: clear to auscultation bilaterally, no crackles, no rales, rhonchi throughout, no wheezes, lung sounds not diminished and No rub present Cardio Rate: tachycardic Skin Other: Good color, warm and dry Neuro General: confusion (Baseline per family) Psych Appearance: grossly normal Mental Status: mental status grossly normal Speech and movement: Normal speech and movement present Affect: normal affect Attitude: cooperative Thought process: Normal thought process present Insight: Good insight present (Psych) Judgement: Good judgement present (Psych) Results Reviewed Results Reviewed: Two-view chest x-ray today looks similar from prior, with COPD changes. Twelve lead EKG sinus tachycardic at 128. Assessment & Plan Assessment & Plan (1) Cough: Code(s): R05.9 - Cough, unspecified Qualifiers: Cough type: acute Qualified Code(s): R05.1 - Acute cough Plan Patient is an 84-year-old Estonian-speaking female with history of COPD bronchitis comes to the walk-in clinic with family member, who has acute cough as a last night. She is also more shaky and weak than usual, and is tachycardic, having been 3 hours out from her bronchodilator treatment. She does have loose stools also, however family attributes it to likely having recently been given increased dose of stool softeners to resolve episode of constipation. She initially presented with an oxygen saturation of 92%, but this was going up throughout movement, and peaked at about 96%. However her heart rate was consistently tachycardic, in the 120s to 130s, even at rest and with her fatigued appearance, and worried that she might have pneumonia or cardiac issue going on. Her 12 lead EKG shows sinus tachycardia with a rate of 128, and no ST changes. We also did chest x-ray, which overall was unremarkable for acute cardiopulmonary disease, but does seem consistent with her chronic disease on past images. I do not feel comfortable with her being treated outpatient, and I advised family that she go to the emergency department for further evaluation. They were amenable to this, and EMS transport was called for transport [facility]. Expect to be called in Orders: Orders SARS-CoV2/FLU/RSV Today J06.9 - Acute upper respiratory infection, unspecified BinaxNOW Covid-19 Ag Today Z20.822 - Contact with and (suspected) exposure to COVID-19 XR chest 2V Today R05.9 - Cough, unspecified Coding Level of Care Code Est Pt Level 4 (64764) Diagnoses Acute cough R05.1 Cough type: acute
[2024-06-23 11:23] VITALS: BP 122/76; PULSE 125; RESP 16; TEMP 37.4; O2SAT 92; BMI 26.6
== END 2024-06-23 13:19 | disposition home or self-care (01) ==
LOC: HO.HMCWIC 09:43
PROVIDERS: PCP Pediatrics; Visit Provider Physician Assistant Medical
DX: R05.1 Acute cough (principal)

== ENCOUNTER 2024-06-23 09:43 | Outpatient (REF) | payer MEDICARE, SELFPAY ==
--- NOTE | ~2024-06-23 | XR_ITS ---
CLINICAL HISTORY: R05.9 - Cough, unspecified 2 view chest x-ray Comparison: None Findings: The lungs are clear. Normal size heart. No acute fracture. IMPRESSION: 1. No acute findings. This document has been electronically signed by: Weston Bailey MD on 06/23/2024 13:18:54
--- OUTSIDE RECORDS SUMMARY | 2024-06-23 12:08 | XMS_ITS | Clinical Summary ---
Author Organization [facility] it Address [address] [place] [address] Care Team Providers Care Cleaner And Presser Name Role Phone Unavailable Primary Care Provider [...]
--- OUTSIDE RECORDS SUMMARY | 2024-06-23 12:08 | XMS_ITS | Encounter Summary ---
Author Organization [employer] Address [address] [facility] [address]t [place] [address] Care Team Providers Care Cloth Bleaching Range Back Tender Name Role Phone Lin Floyd MD Primary Care Provider Reason for Visit * Reason Onset Date Comments callback requested 04/12/2024 Encounter Details Date Type Department Care Team ([facility] Contact Info) Description 04/12/2024 Telephone [facility] MEDICINE [address] [place] [address] Lin Floyd MD [address] [place] [address] callback requested Social History Tobacco Use Types [...] by call center does not work. Called [facility] directly. Left messagefor Luz Cowart, occupational therapist director to call back. In future, call main number of [phone], ext: [phone]. * Telephone Encounter - Dyan Wolf - 04/12/2024 4:29 PM EST Tc from [place] with [facility] requesting a callback (no further info discussed) [phone] documented in this encounter Plan of Treatment Not on file documented as of this encounter Visit Diagnoses Not on filedocumented in this encounter Care Teams Cloth Bleaching Range Back Tender Relationship Specialty Start Date End Date Lin Floyd MD [address] [place] [address] PCP - General Family Medicine 05/02/18 documented as of this encounter
--- OUTSIDE RECORDS SUMMARY | 2024-06-23 12:08 | XMS_ITS | Encounter Summary ---
Author Organization [employer] Address [address] [facility] [address] [place] [address] Care Team Providers Care Belt Loop Machine Operator Name Role Phone Lin Floyd MD Primary Care Provider [phone] Reason for Visit * Reason Comments Med Refill Encounter Details Date Type Department Care Team ([facility] Contact Info) Description 06/01/2024 Refill [facility] MED & PEDS [address] [place] [address] Lin Floyd MD [address] [place] [address] Social History Tobacco Use Types Packs/Day Years [...] on filedocumented in this encounter Care Teams Belt Loop Machine Operator Relationship Specialty Start Date End Date Lin Floyd MD [address] [place] [id number] PCP - General Family Medicine 05/02/18 documented as of this encounter
--- OUTSIDE RECORDS SUMMARY | 2024-06-23 12:08 | XMS_ITS | Clinical Summary ---
Author Organization [employer] Address [address] [place] [address] 7t [place] [address] Care Team Providers Care Nutrition Partner Name Role Phone Lin Floyd MD Primary Care Provider [phone] Allergies No known active allergies Medications Melatonin [...] Type Department Care Team Description 06/01/2024 Refill [facility] MED & PEDS [address] [place] [address] Lin Floyd MD 05/25/2024 Refill [facility] MED & PEDS [address] [place] [address] Lin Floyd MD 04/30/2024 Refill [facility] MED & PEDS [address] [place] [address] Lin Floyd MD Gastroesophageal reflux disease without esophagitis 04/19/2024 Refill [facility] MED & PEDS [address] [place], [place] [id number] Lin Floyd MD Chronic bronchitis, unspecified chronic bronchitis type ([facility]) 04/16/2024 Orders Only [facility] External Provider, [facility] 04/12/2024 Telephone [facility] MEDICINE [address] [place] [address] Lin Floyd MD callback requested from Last [...] Adult Primary Care ?[address] ? [place] [address] ?XRay Report ? Signed ? Patient: Rodriguez,Cyndie ?MR#: [id number] ?? [id number] ? : 1940 ?Acct:[id number] ? Age/Sex: 84 / F ?ADM Date: 04/16/24 ? Loc: HO.HMGCX ? Attending Dr: Tiny Rodríguez PA-C ? Ordering Physician: Tiny Rodríguez PA-C ?? Date of Service: 04/16/24 ?? Procedure(s): XR chest 2V ?? Accession Number(s): [id number] ? cc: Lin Floyd MD; Tiny Rodríguez [...] DD/ 1022 ? TD/TT: 04/16/24 1030 ? Intelligence Agent: ? Procedure Note Shmuel, Colby - 04/16/2024 [facility] [address] [place] [address] XRay Report Signed Patient: Cyndie Rodriguez#: [id number] : 8Acct:[id number] Age/Sex: 84 / FADM Date: 04/16/24 Loc: HO.HMGCX Attending Dr: Tiny Rodríguez PA-C Ordering Physician: Tiny Rodríguez PA-C Date of Service: 04/16/24 Procedure(s): XR chest 2V Accession Number(s): [id number] cc: Lin Floyd MD; Tiyn Rodríguez PA-C EXAMINATION: XR CHEST CLINICAL INFORMATION: [...] 04/16/24 1239 DD/ 1022 TD/TT: 04/16/24 1030 Intelligence Agent: [facility] External Provider IMG XR PROCEDURES Edited Result - Final * SARS-CoV-2 RNA, Influenza A/B, and RSV RNA, Ql NAAT (04/16/2024 9:59 AM EST) Influenza A PCR NEGATIVE Negative [facility] Influenza B PCR NEGATIVE Negative [facility] Resp Syncy Virus RNA Qual PCR NEGATIVE Negative [facility] SARS COV2 PCR NEGATIVE Negative [facility] Comment:All test results mus t [...] use by authorized laboratories.Testing performed on the [employer] GeneXpert utilizingreal-time RT-PCR.All SARS CoV2 and positive influenza A/B results arereported to [facility]. 04/16/2024 9:59 AM EST 04/16/2024 1:23 PM EST us Generic External Data Provider LAB MICROBIOLOGY - GENERAL ORDERABLES Final Result [facility] [address] [place] [address] [phone] from Last 3 Months Insurance # [address] [place] [address] [facility] Advance Directives Documents on File Type Date Recorded Patient Risk Professional Expl anation HealthCare Proxy 04/26/2023 Health Care Proxy Care Teams Nutrition Partner Relationship Specialty Start Date End Date Lin Floyd MD [address] [facility] [place] [address] PCP - General Family Medicine 05/02/18
--- OUTSIDE RECORDS SUMMARY | 2024-06-23 12:08 | XMS_ITS | Encounter Summary ---
Author Organization [employer] Address [address] [facility] [address] [place] [address] Care Team Providers Care Director Translational Name Role Phone Lin Floyd MD Primary Care Provider [phone] Reason for Visit * Reason Comments Med Refill Encounter Details Date Type Department Care Team ([facility] Contact Info) Description 05/25/2024 Refill [facility] MED & PEDS [address] [place] [address] Lin Floyd MD [address] [place] [address] Social History Tobacco Use Types Packs/Day Years [...] filedocumented in this encounter Care Teams Director Translational Relationship Specialty Start Date End Date Lin Floyd MD [address] [place] [address] PCP - General Family Medicine 05/02/18 documented as of this encounter
--- OUTSIDE RECORDS SUMMARY | 2024-06-23 12:08 | XMS_ITS | Encounter Summary ---
Author Organization [facility] Address [address] [place] [address] [address] [place] [address] Care Team Providers Care Open Hearth Door Liner Name Role Phone Lin Floyd MD Primary Care Provider [phone] Reason for Visit * Reason Comments Med Refill Encounter Details Date Type Department Care Team ([facility] Contact Info) Description 10/20/2022 Refill [facility] MED & PEDS [address] [place] [address] Jennifer Friedman MD [address] [place] [address] Social History Tobacco Use Types Packs/Day Years [...] on filedocumented in this encounter Care Teams Open Hearth Door Liner Relationship Specialty Start Date End Date Lin Floyd MD [address] [place] [address] PCP - General Family Medicine 05/02/18 documented as of this encounter
[2024-06-23 12:32] LABS: Binax Internal Control QC Valid; Binax Lot number: 860104; Binax Now Covid-19 Ag Negative (Negative); Binax Performed by: PAULP
[2024-06-23 14:20] LABS: Influenza A PCR POSITIVE (Negative); Influenza B PCR NEGATIVE (Negative); Resp Syncy Virus RNA Qual PCR NEGATIVE (Negative); SARS COV2 PCR INHOUSE NEGATIVE (Negative)
== END 2024-06-23 09:44 | disposition home or self-care (01) ==
LOC: HO.HMGCX 09:43
PROVIDERS: PCP Pediatrics; Visit Provider Physician Assistant Medical
DX: J06.9 Acute upper respiratory infection, unspecified (principal); Z20.822 Contact with and (suspected) exposure to COVID-19; R05.1 Acute cough
CPT/HCPCS: 0241U; 71046; 87811; 99212

== ENCOUNTER → 2024-06-23 12:09 | Outpatient (BNV) | payer MEDICARE, SELFPAY | PROVIDERS: PCP Pediatrics; Visit Provider Radiology Diagnostic Radiology | DX: R05.9 Cough, unspecified (principal) | CPT/HCPCS: 71046 ==

== ENCOUNTER 2024-08-15 15:56 | Outpatient (AMB) | payer MEDICARE, SELFPAY ==
[2024-08-15 15:58] VITALS: BP 132/68; PULSE 93; O2SAT 95
--- NOTE | 2024-08-15 15:58 | MHC.OFFVIS ---
Vital Signs 08/15/24 15:58 Height 4 ft 9 in BP 132/68 Blood Pressure Location Rt brachial Position Sitting Pulse 93 Pulse Source Pulse Oximeter Pulse Oximetry (%) 95 Oxygen Delivery Method Room Air Intake Visit Reasons: copd Intake Note: pt is here for follow up and states with exertion walking to bathroom she does get short of breath., how often should she be using the nebulizer and she needs refill sent to pharmacy. Playground Attendant Required: No Allergies No Known Allergies Allergy (Verified 08/15/24 16:12) Medication List - Last Reconciled 08/15/24 by Zehra Amador MD albuterol sulfate 90 mcg/actuation 0 mcg inhalation albuterol sulfate 2.5 mg (3 mL) inhalation Q4-6H PRN aspirin 81 mg PO DAILY atorvastatin 20 mg PO DAILY calcium carbonate-vitamin D3 600 mg-5 mcg (200 unit) 1 tab PO QAM celecoxib 100 mg PO DAILY docusate sodium 100 mg PO DAILY famotidine 20 mg PO BID fluticasone furoate-vilanterol 100-25 mcg/dose (Breo Ellipta) 1 inh inhalation DAILY 90 days memantine 10 mg PO BID multivitamin 1 tab PO QAM Spiriva with HandiHaler (tiotropium bromide) 1 cap inhalation DAILY 30 days NS venlafaxine 75 mg PO DAILY Do you need a note to return to daycare/school/sports/work: No HPI HPI copd: Details: AR IS 84 YEARS OLD VERY PLEASANT FEMALE, COMES FOR FOLLOW-UP AFTER 6 MONTHS. SHE DOES HAVE DEMENTIA, SHE IS USUALLY QUIET BUT PLEASANT AND SMILING. SHE IS BROUGHT IN BY HER DAUGHTER IN THE WHEELCHAIR. THE BREATHING HAS BEEN STABLE. WITH ONLY MINOR SPELLS OF INCREASED COUGH DURING CHANGE IN THE WEATHER. LUCKILY SHE HAS HAD NO ACUTE RESPIRATORY INFECTION. CONTINUE TO USE HER INHALERS REGULARLY . [facility] Medical History Contusion of right wrist Contusion of right shoulder Cough in adult Contusion of left wrist Contusion of left shoulder Cavitary lesion of lung Pneumonia COPD (chronic obstructive pulmonary disease) Depression Anxiety COPD (chronic obstructive pulmonary disease) Hyperlipidemia Surgical History History of ankle surgery Social History Are you a primary career law clerk to a significant other at home: No Do you presently have visiting nurse or other home services: No Alcohol intake: never Patient Tobacco Use Status: Former Tobacco user Advance Directives Date on File: 05/02/16 Current occupation: rt handed Review of Systems Const All systems reviewed & are unremarkable except as noted in HPI and below Eyes Reports no additional complaints ENT Reports nasal congestion (Mild intermittent) Card Denies chest pain, Denies irregular heart rhythm and Denies leg edema Resp Reports as per HPI (AT PRESENT SHE DOES HAVE INCREASED AMOUNT OF COUGH) GI Reports heartburn (Mild GERD symptoms controlled with medicine) Reports no additional complaints Musc Reports abnormal gait (Impaired gait and she uses walker in the house) and Reports muscle weakness (Lower extremities) Skin/Breast Reports system reviewed and no additional complaints, except as documented Neuro Reports abnormal gait (Impaired gait and she uses walker in the house) and 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) Psych Reports no additional complaints and 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) Physical Exam Vital Signs: Last Vital Signs Pulse 93 08/15/24 15:58 BP 132/68 08/15/24 15:58 Pulse Ox 95 08/15/24 15:58 Oxygen Delivery Method Room Air 08/15/24 15:58 Const Other: Very pleasant, in wheelchair General: comfortable, no acute distress, alert and awake Orientation/consciousness: patient oriented x3 HEENT Head: Yes normal to inspection General nose exam: No nasal polyps present and No nasal discharge present Face and sinus: Yes sinuses nontender Mouth: oropharynx normal Throat: Yes posterior oropharynx normal Eyes General: appearance normal, both eyes and all related structures Neck Neck: Yes normal visual inspection, Yes no lymphadenopathy, Yes trachea midline and Yes no JVD Thyroid: Thyroid normal Chest Chest palpation & inspection: normal inspection of the chest, normal palpation of entire chest wall and no tenderness Resp Other: Percussion note is resonant . Breath sounds are distant with prolonged expiratory phase . On auscultation she does not have any localized crepitations or wheezes, both sides. are quite clear Cardio Palpation: normal PMI Rate: regular rate Rhythm: regular rhythm Heart sounds: no gallops and no murmurs GI Palpation (GI): Soft to palpation, nontender, No hepatosplenomegaly present and no masses Auscultation: normal bowel sounds Back/Spine/Pelvis Thoracic/Lumbar Spine: thoracic and lumbar spine normal to inspection and thoraco-lumbar ROM limited Skin General skin exam: no rashes or lesions noted Neuro General: patient oriented x3, No gait normal (Impaired gait and she uses walker for stability) and no focal motor deficits Cranial nerves: Yes CN's II-XII intact bilaterally Extrem General: Yes normal to inspection, Yes no clubbing, cyanosis or edema, Yes no calf tenderness and Yes other (Toes of both feet are cold, but peripheral pulses normal. ( vaso motor )) Psych Appearance: grossly normal and well kempt Speech and movement: Normal speech and movement present Assessment & Plan Assessment & Plan (1) COPD (chronic obstructive pulmonary disease): Comment: This patient has long-standing history of chronic obstructive pulmonary disease. As per PFT, COPD is moderately severe, without much response to bronchodilators. This seems to be related to her previous smoking but luckily she quit more than 20 years ago. Doing very well with her current regimen. Code(s): J44.9 - Chronic obstructive pulmonary disease, unspecified Category: Medical Plan: Breo 100-25 1 inhalation daily Spiriva HandiHaler 1 inhalation daily Albuterol solution 2.5 mg in the nebulizer Q 6 hours p.r.n.( may use up to twice a day ) Albuterol HFA 2 puffs Q 6 hours p.r.n. when outdoors. Coding Level of Care Code Est Pt Level 3 (47832) Diagnoses COPD (chronic obstructive pulmonary disease) J44.9
--- OUTSIDE RECORDS SUMMARY | 2024-08-15 18:11 | XMS_ITS | Clinical Summary ---
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 4 Active aspirin 81 mg EC tablet Take 1 tablet (81 mg total) by mouth at bedtime. 4 Active atorvastatin (LIPITOR) 20 mg tablet Take 1 tablet (20 mg total) by mouth at bedtime. 4 Active calcium carbonate-vitam in D3 600 mg-5 mcg (200 unit) per tablet Take 1 tablet by mouth 1 (one) time each day in the morning. 4 Active famotidine (PEPCID) 20 mg tablet Take 1 tablet (20 mg total) by mouth 2 (two) times a day. 4 Active Breo Ellipta 100-25 mcg/dose inhaler Inhale 1 puff by mouth 1 (one) time each day. Active memantine (NAMENDA) 10 mg tablet Take 1 tablet (10 mg total) by mouth 2 (two) times a day. 5 Active multivitamin tablet Take 1 tablet by mouth 1 (one) time each day in the morning. 4 Active QUEtiapine (SEROquel) 25 mg tablet Take 0.5 tablets (12.5 mg total) by mouth at bedtime. 5 Active Spiriva with HandiHaler 18 mcg per inhalation capsule Place 1 capsule (18 mcg total) into inhaler and inhale 1 (one) time each day. INHALE 1 CAPSULE VIA HANDIHALER ONCE DAILY AT THE SAME TIME EVERY DAY Active venlafaxine XR (EFFEXOR-XR) 75 mg 24 hr capsule Take 1 capsule (75 mg total) by mouth 1 (one) time each day. 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 07/27/2011 Anxiety state 07/27/2011 Allergic rhinitis 07/27/2011 Resolved Problems Problem Noted Date Diagnosed Date Resolved Date Severe chronic obstructive p ulmonary disease [place], [facility] V28) 08/03/2022 06/23/2024 Mild persistent asthma 10/20/201606/23 Encounters Date Type Department Care Team Description 06/23/2024 1:42 PM EST - 06/24/2024 10:47 AM EST Hospital Encounter [facility] Emergency [address] [place] [address] Sara Vasquez MD Jones, Christopher, MD Kela, Kashyap Devendrabhai, MD Influenza (Primary Dx); Chronic obstructive pulmonary disease, unspecified COPD type ([facility] V24, [facility] V28) Discharge Disposition: Home-Health Care [facility] from Last 3 Months Surgical History Surgery Date Site/Laterality Comments HERNIA REPAIR Medical History Medical History Date Comments Severe chronic obstructive p ulmonary disease ([facility] V24, [facility] V28) 08/03/2022 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 10/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 Anxiety state 07/27/2011 Allergic rhinitis 07/27/2011 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 COPD with acute exacerbation ([facility] V24, [facility] V28) 08/03/2022 Depressive disorder 07/27/2011 Pure hypercholesterolemia 07/27/2011 Unsteady gait 03/21/2013 Family History Medical History Relation Name Comments Heart disease Other Hypertension Other Relation Name Status Comments Other Social History Tobacco Use Types Packs/Day Years Used Date Smoking Tobacco: Former Cigarettes Tobacco Cessation:Counseling Given: Not Answered Alcohol Use Standard Drinks/Week Comments Not Currently 0 (1 standard drink = 0.6 oz pur e alcohol) Comments Unknown Sex and Gender Information Value Date Recorded Sex Assigned at Not on file Legal Sex Female 2:26 AM EST Gender Identity Not on file Sexual Orientation Not on file Obstetrics History Last Filed Vital Signs Vital Sign Reading Time Taken Comments Blood Pressure 143/67 06/24/2024 10:46 AM EST Pulse 116 06/24/2024 11:10 AM EST Temperature 37.3 ??C (99.2 ??F) 06/23/2024 5:03 PM ES T Respiratory Rate 21 06/24/2024 11:10 AM EST Oxygen Saturation 95% 06/24/2024 11:10 AM EST Inhaled Oxygen Concentration - - Weight 50.3 kg (111 lb) 06/23/2024 2:01 PM EST Height 134.6 cm (4' 5 ) 06/23/2024 2:01 PM EST Body Mass Index 27.78 06/23/2024 2:01 PM EST Plan of Treatment Health Maintenance Due Date Last Done Comments RSV Immunization Adult Patients (1 - 1-dose 75+ series) 2013 Zoster Vaccines (2 of 3) 07/29/2015 06/03/2015 Cholesterol Screening (Lipid Panel) 12/26/2023 Depression Screening 12/26/2023 Falls Risk Assessment 12/26/2023 Medicare Annual Wellness Visit 12/26/2023 Osteoporosis Screening (Bone Density Screening) 12/26/2023 Social Influencers of Health Screening 12/26/2023 DTaP,Tdap,and Td Vaccines (2 - Td or Tdap) 06/03/2025 06/03/2015 Pneumococcal Vaccine: 50+ Years Completed 02/01/2019, 01/21/2015, 08/13/2013 COVID-19 Vaccine Completed 03/09/2024, 12/2023, 02/10/2021, Additional history exists Influenza Vaccine Completed 03/16/2024, , 01/25/2022, Additional history exists HIB Vaccines Aged Out No longer eligi [...] age to complete this topic Meningococcal B Vaccine Aged Out No l onger eligible based on patient's age to complete this topic RSV Immunization Patients Under 20 months Aged Out No longer eligible based on patient's age to complete this topic Varicella Vaccines Aged Out No longer eligible based on patient's age to complete this topic Procedures Procedure Name Priority Date/Time Associated Diagnosis Comments ECG ANNOTATED 06/25/2024 CBC WITH AUTO DIFFERENTIAL Routine 06/24/2024 5:14 AM EST CBC AND DIFFERENTIAL Routine 06/24/2024 5:14 AM EST BASIC METABOLIC PANEL Routine 06/24/2024 5:14 AM EST OXYGEN THERAPY, ADULT Routine 06/23/2024 10:40 PM EST PROTHROMBIN TIME WITH INR Routine 06/23/2024 7:56 PM EST D-DIMER STAT 06/23/2024 7:56 PM EST TROPONIN I HIGH SENSITIVITY STAT 06/23/2024 3:43 PM EST XR CHEST 1 VIEW STAT 06/23/2024 2:35 PM EST PROCALCITONIN Add-On 06/23/2024 1:58 PM EST CBC WITH AUTO DIFFERENTIAL STAT 06/23/2024 1:58 PM EST TROPONIN I HIGH SENSITIVITY STAT 06/23/2024 1:58 PM EST B-TYPE NATRIURETIC PEPTIDE STAT 06/23/2024 1:58 PM EST BASIC METABOLIC PANEL STAT 06/23/2024 1:58 PM EST CBC AND DIFFERENTIAL STAT 06/23/2024 1:58 PM EST [id number], RSV, FLU A AND B QUALITATIVE RT-PCR, INTERNAL LAB STAT 06/23/2024 1:58 PM EST ECG 12-LEAD STAT 06/23/2024 1:48 PM EST from Last 3 Months Results * ECG-Annotated (06/25/2024) us Provider Onbase MD ECG ORDERABLES Final Result * (ABNORMAL) CBC auto differential (06/24/2024 5:14 AM EST) Only the most recent of2 resultswithin the time period is included. WBC 5.7 4.8 - 10.8 K/mcL LAB HEMETOLOGY METHOD 06/24/2024 6:13 AM [facility] RBC 4.50 3.80 - 4.80 M/mcL LAB HEMETOLOGY METHOD 06/24/2024 6:13 AM [facility] Hemoglobin 12.8 11.5 - 16.0 g/dL LAB HEMETOLOGY METHOD 06/24/2024 6:13 AM [facility] Hematocrit 39.9 35.0 - 47.0 % LAB HEMETOLOGY METHOD 06/24/2024 6:13 AM [facility] MCV 89.7 79.0 - 98.0 FL LAB HEMETOLOGY METHOD 06/24/2024 6:13 AM [facility] MCH 28.8 27.0 - 32.0 pcg LAB HEMETOLOGY METHOD 06/24/2024 6:13 AM [facility] MCHC 32.1 32.0 - 37.0 g/dL LAB HEMETOLOGY METHOD 06/24/2024 6:13 AM [facility] RDW 12.8 11.0 - 15.0 % LAB HEMETOLOGY METHOD 06/24/2024 6:13 AM [facility] Platelets 278 130 - 400 K/mcL LAB HEMETOLOGY METHOD 06/24/2024 6:13 AM [facility] MPV 9.3 7.0 - 11.0 FL LAB HEMETOLOGY METHOD 06/24/2024 6:13 AM [facility] NRBC 0.0 <1.0 % LAB HEMETOLOGY METHOD 06/24/2024 6:13 AM [facility] NRBC Absolute 0.00 <0.10 K/mcL LAB HEMETOLOGY METHOD 06/24/2024 6:13 AM [facility] Neutrophils Relative 76.5 % LAB HEMETOLOGY METHOD 06/24/2024 6:13 AM [facility] Lymphocytes Relative 14.8 % LAB HEMETOLOGY METHOD 06/24/2024 6:13 AM [facility] Monocytes Relative 8.3 % LAB HEMETOLOGY METHOD 06/24/2024 6:13 AM [facility] Eosinophils Relative 0.0 % LAB HEMETOLOGY METHOD 06/24/2024 6:13 AM [facility] Basophils Relative 0.0 % LAB HEMETOLOGY METHOD 06/24/2024 6:13 AM [facility] Immature Granulocytes Relative 0.4 % LAB HEMETOLOGY METHOD 06/24/2024 6:13 AM [facility] Neutrophils Absolute 4.35 1.50 - 7.00 K/mcL LAB HEMETOLOGY METHOD 06/24/2024 6:13 AM [facility] Lymphocytes Absolute 0.84(L) 1.00 - 5.00 K/mcL LAB HEMETOLOGY METHOD 06/24/2024 6:13 AM EST [facility] Monocytes Absolute 0.47 0.20 - 1.00 K/[facility] LAB HEMETOLOGY METHOD 06/24/2024 6:13 AM [facility] Eosinophils Absolute 0.00 0.00 - 0.50 K/mcL LAB HEMETOLOGY METHOD 06/24/2024 6:13 AM [facility] Basophils Absolute 0.00 0.00 - 0.20 K/[facility] LAB HEMETOLOGY METHOD 06/24/2024 6:13 AM [facility] Immature Granulocytes Absolute 0.02 0.00 - 0.03 K/[facility] LAB HEMETOLOGY METHOD 06/24/2024 6:13 AM [facility] Blood Venous blood specimen / Unknown Venipuncture / Unknown 06/24/2024 5:14 AM EST 06/24/2024 6:01 AM EST us Pan Toussaint MD LAB BLOOD ORDERABLES Final Result [facility] [address] [place] [address], * (ABNORMAL) Basic metabolic panel (06/24/2024 5:14 AM EST) Only the most recent of2 resultswithin the time period is included. Sodium 133 133 - 145 mmol/L LAB CHEMISTRY METHOD 06/24/2024 6:55 AM [facility] Potassium 4.7 3.5 - 5.5 mmol/L LAB CHEMISTRY METHOD 06/24/2024 6:55 AM [facility] Chloride 102 96 - 110 mmol/L LAB CHEMISTRY METHOD 06/24/2024 6:55 AM [facility] CO2 28 21 - 32 mmol/L LAB CHEMISTRY METHOD 06/24/2024 6:55 AM [facility] Anion Gap 3 3 - 11 LAB CHEMISTRY METHOD 06/24/2024 6:55 AM [facility] Glucose 144(H) 70 - 100 mg/dL LAB CHEMISTRY METHOD 06/24/2024 6:55 AM [facility] BUN 19 5 - 25 mg/dL LAB CHEMISTRY METHOD 06/24/2024 6:55 AM [facility] Creatinine 0.85 0.50 - 1.10 mg/dL LAB CHEMISTRY METHOD 06/24/2024 6:55 AM [facility] eGFR 67 >=60 mL/min/1. 73m2 LAB CHEMISTRY METHOD 06/24/2024 6:55 AM [facility] Comment:Calculation based on the??Chronic Kidney Disease Epidemiology Collaboration (CKD-EPI) equation refit??without adjustment for race. BUN/Creatinine Ratio 22.4 LAB CHEMISTRY METHOD 06/24/2024 6:55 AM [facility] Calcium 9.1 8.5 - 10.5 mg/dL LAB CHEMISTRY METHOD 06/24/2024 6:55 AM [facility] Blood Venous blood specimen / Unknown Venipuncture / Unknown 06/24/2024 5:14 AM EST 06/24/2024 6:01 AM EST us Pan Toussaint MD LAB BLOOD ORDERABLES Final Result [facility] [address] [place] [address], * Prothrombin time with INR (06/23/2024 7:56 PM EST) Protime 13.9 10.6 - 13.9 sec LAB COAGULATION METHOD 06/23/2024 8:47 PM [facility] INR 1.1 LAB COAGULATION METHOD 06/23/2024 8:47 PM [facility] Blood Venous blood specimen / Unknown Venipuncture / Unknown 06/23/2024 7:56 PM EST 06/23/2024 8:35 PM EST Radha WILLIAM LAB BLOOD ORDERABLES Final Re sult Performing Organization Address [facility] Co de Phone Number [facility] [address] [place] [address], [place] [phone] * (ABNORMAL) D-Dimer (06/23/2024 7:56 PM EST) [facility] D-Dimer, Quant (D-DU) 397(H) <=230 ng/mL DDU LAB COAGULATION METHOD 06/23/2024 8:47 PM EST [facility] Blood Venous blood specimen / Unknown Venipuncture / Unknown 06/23/2024 7:56 PM EST 06/23/2024 8:35 PM EST Narrative [facility] - 06/23/2024 8:47 PM EST D-Dimer <230 ng/mL (D-Dimer units) is the threshold for exclusion of DVT/PE. D-Dimer may be elevated in: Critically ill, severely infected, trauma patients, DIC, acute CVA, acute [place], unstable angina, AF, old age, , and smoking. D-Dimer may be decreased with: Initiation of heparin therapy and oral anticoagulants. Radha WILLIAM LAB BLOOD ORDERABLES Final Re sult Performing Organization Address [facility] Co de Phone Number [facility] [address] [place] [address], [place] [phone] * Troponin I high sensitivity (06/23/2024 3:43 PM EST) Only the most recent of2 resultswithin the time period is included. [facility] High Sensitivity Troponin I 11 <=54 ng/L LAB CHEMISTRY METHOD 06/23/2024 4:28 PM EST [facility] Blood Venous blood specimen / Unknown Venipuncture / Unknown 06/23/2024 3:43 PM EST 06/23/2024 4:00 PM EST Narrative [facility] - 06/23/2024 4:28 PM EST High levels of biotin in samples may falsely decrease hsTroponin values. ??Use caution when interpreting hsTroponin results in patients taking biotin who exhibit renal impairment (eGFR <60) or in patients taking more than 20 mg/day of biotin. us Sara Vasquez MD LAB BLOOD ORDERABLES Final Resul t [facility] ([facility] [address] [place] [address], [place] [phone] * XR Chest 1 View (06/23/2024 2:35 PM EST) Anatomical Region Laterality Modality Body Radiographic Marisa ging 06/23/2024 2:57 PM EST Impressions 06/23/2024 2:57 PM EST No evidence of active pulmonary disease. [id number] -------- FINAL REPORT -------- Dictated By: Víctor Valdes Dictated Date: 06/23/2024 14:57 ET Assigned Physician: Víctor Valdes Reviewed and Electronically Signed By: Víctor Valdes Signed Date: 06/23/2024 14:57 ET Workstation ID: [id number] Transcribed By: Self Edit Transcribed Date: 06/23/2024 14:57 ET Narrative 06/23/2024 2:57 PM EST INDICATION: Shortness of breath and cough FINDINGS: Single portable AP view of the chest obtained. Compared to multiple prior studies most recent from September 06, 2023. Lung bashir are clear. Heart normal in size and shape. Bony structures are grossly intact and normal for the patient's age. Procedure Note Víctor Valdes MD - 06/23/2024 INDICATION: Shortness of breath and cough FINDINGS: Single portable AP view of the chest obtained. Compared tomultiple prior studies most recent from September 06, 2023. Lung bashir are clear. Heart normal in size and shape. Bony structures are grossly intact and normal for the patient's age. IMPRESSION: No evidence of active pulmonary disease. [id number] -------- FINAL REPORT -------- Dictated By: Víctor Valdes Dictated Date: 06/23/2024 14:57 ET Assigned Physician: Víctor Valdes Reviewed and Electronically Signed By: Víctor Valdes Signed Date: 06/23/2024 14:57 ET Workstation ID: [id number] Transcribed By: Self Edit Transcribed Date: 06/23/2024 14:57 ET Sara Vasquez MD IMG XR PROCEDURES Final Result * (ABNORMAL) [id number], RSV, Influenza A and B qualitative RT-PCR (06/23/2024 1:58 PM EST) Influenza A PCR Detected(A) Not Detected LAB MICROBIOLOGY METHOD 06/23/2024 3:02 PM EST [facility] Comment:This patient is posi tive for influenza A. If the patient is admitted, please order the Respiratory Virus Panel PCR ([facility] ID: [id number]) so our lab can subtype the influenza A, per CDC recommendations. Influenza B PCR Not Detected Not Detected LAB MICROBIOLOGY METHOD 06/23/2024 3:02 PM EST [facility] RSV PCR Not Detected Not Detected LAB MICROBIOLOGY METHOD 06/23/2024 3:02 PM [facility] SARS COV-2 Not Detected Not Detected LAB MICROBIOLOGY METHOD 06/23/2024 3:02 PM [facility] Swab Both anterior nares / Unknown Non-blood Collection / Unknown 06/23/2024 1:58 PM EST 06/23/2024 2:14 PM EST [facility] - 06/23/2024 3:02 PM EST Disclaimer: ??Testing was performed using the [employer] GeneXpert Xpress SARS-CoV-2 _Flu_RSV PLUS PCR assay. ??The manner in which this information is used to guide patient care is the responsibility of the healthcare provider. ??Results should be correlated with the clinical history, epidemiological data, and other data available to the clinician evaluating the patient. ??Negative results do not preclude infection. ??This test has been authorized by the FDA under an Emergency Use Authorization (EUA). ??This test is only authorized for the duration of time the declaration that circumstances exist justifying the authorization of the emergency use of in vitro diagnostic tests for detection of SARS-CoV-2 virus and/or diagnosis of COVID-19 infection under section 564 (b) (1) of the Act, 21 U.S.C 360bbb-3 (b) (1), unless the authorization is terminated or revoked sooner. ?? Reference Range: Not Detected Fact sheet for Healthcare providers can be found at https://www.fda.gov/media/775846/download. ?? Fact sheet for Healthcare patients can be found at https://www.fda.gov/media/274979/download. us Sara Vasquez MD LAB MICROBIOLOGY - GENERAL ORDER ABEL Final Result [facility] [address] [place] [address], * Procalcitonin (06/23/2024 1:58 PM EST) Procalcitonin 0.02 <=0.16 ng/mL LAB CHEMISTRY METHOD 06/24/2024 9:45 AM EST [facility] Blood Venous blood specimen / Unknown Venipuncture / Unknown 06/23/2024 1:58 PM EST 06/23/2024 2:14 PM EST Narrative [facility] - 06/24/2024 9:45 AM EST Procalcitonin > 2.00 ng/ml: Procalcitonin Levels above 2.00 ng/ml, on the first day of ICU admission represent a high risk for progression to severe sepsis and/or septic shock. Procalcitonin < 0.50 ng/ml: Procalcitonin levels below 0.50 ng/ml on the first day of ICU admission represent a low risk for progression to severe sepsis and/or septic shock. Concentrations <0.5 ng/mL do not exclude an infection, on account of local ized infections (without systemic signs) which can be associated with such low concentrations, or a systemic infection in its initial stages (<6 hours). Furthermore, increased procalcitonin can occur without infection. PCT concentrations between 0.5 and 2.0 ng/mL should be interpreted taking into account the patient's history. It is recommended to retest PCT within 6-24 hours if any concentrations <2.0 ng/mL are obtained. Pan Toussaint MD LAB BLOOD ORDERABLES Final Result Performing Organization Address [facility] Co de Phone Number [facility] [address] [place] [address], * B-type natriuretic peptide (06/23/2024 1:58 PM EST) [facility] BNP 59 <=100 pcg/mL LAB CHEMISTRY METHOD 06/23/2024 2:48 PM EST [facility] Blood Venous blood specimen / Unknown Venipuncture / Unknown 06/23/2024 1:58 PM EST 06/23/2024 2:14 PM EST Sara Vasquez MD LAB BLOOD ORDERABLES Final Resul t Performing Organization Address [facility] Co de Phone Number [facility] [address] [place] [address], * ECG 12 lead (06/23/2024 1:48 PM EST) Ventricular Rate ECG 135 BPM GEMUSE Atrial Rate 135 BPM GEMUSE P-R Interval 160 ms GEMUSE QRS Duration 60 ms GEMUSE Q-T Interval 270 ms GEMUSE QTc 405 ms GEMUSE P Wave [place] 66 degrees GEMUSE R [place] 29 degrees GEMUSE T [place] 67 degrees GEMUSE ECG Interpretation Sinus tachycardia Otherwise normal ECG When compared with ECG of 06-SEP-2023 07:00, No significant change was found Confirmed by RUSSEL SEGAL ([id number]) on 06/23/2024 3:38:56 PM GEMUSE 06/23/2024 1:48 PM EST 06/23/2024 3:38 PM EST us Sara Vasquez MD ECG ORDERABLES Final Result [facility] from Last 3 Months Insurance [employer] Advance Directives * Full Code - Confirmed (Latest Code Status on File) Date Activated Date Inactivated Comments 06/23/2024 9:35 PM 06/24/2024 2:[address] atus was ascertained in the following way: Code status discussion: discussion with patients proxy To update the patient's code status, place a code status order. Do not modify or discontinue any currently active code status orders. * Full Code - Default Date Activated Date Inactivated Comments 06/23/2024 7:48 PM 06/23/2024 9:35 PM This is orde r is used when code status has not been discussed with the patient, or code status is otherwise unknown/unconfirmed To update the patient's code status, place a code status order. Do not modify or discontinue any currently active code status orders. Care Teams [employer] Relationship Specialty Start Date End Date Physician, No Pcp PCP - General 06/23/24
--- OUTSIDE RECORDS SUMMARY | 2024-08-15 18:11 | XMS_ITS | Clinical Summary ---
Author Organization [employer] Address [address] [place] [address] [address] [place] [address] Care Team Providers Care Stringer Up Soldering Machine Name Role Phone Lin Floyd MD Primary Care Provider [phone] Allergies No known active allergies Medications Melatonin [...] DAY 28 each 11 03/10/20 23 Active Aspirin Adult Low Strength 81 MG [...] BEDTIME 90 tablet 4 04/30/20 24 Active memantine (Namenda) 10 MG tablet TAKE ONE TABLET IN THE MORNING AND EVENING 180 tablet 3 06/01/19 25 Active QUEtiapine (SEROquel) 25 MG tablet TAKE ONE-HALF TABLET EVERY NIGHT AT BEDTIME NEEDED FOR SLEEP 15 tablet 3 07/17/19 25 Active Spiriva HandiHaler 18 MCG inhalation capsuleIndicati ons:COPD mixed type (CMS/HCC) USE 1 CAPSULE FOR INHALATION ONCE A DAY DO NOT SWALLOW CAPSULE 30 capsule 11 07/21/19 25 Active tiotropium (Spiriva HandiHaler) 18 MCG inhalation capsuleIndicati ons:COPD mixed type (CMS/HCC) USE 1 CAPSULE FOR INHALATION ONCE A DAY DO NOT SWALLOW CAPSULE 30 capsule 11 06/30/19 24 025 Discontinued Active Problems Problem Noted [...] Encounters Date Type Department Care Team Description 07/19/2024 Refill [facility] [address] [place] [address] Lin Floyd MD COPD mixed type ([facility] 07/19/2024 Telephone [facility] MEDICINE [address] [place] [address] Lin Floyd MD Appointment Request 07/16/2024 Refill [facility] MED & PEDS [address] [place] [address] Lin Floyd MD 07/05/2024 Telephone [facility] MEDICINE [address] [place] [address] Lin Floyd MD ER Follow-up 06/26/2024 Telephone [facility] MEDICINE [address] [place] [address] Barbara Fortune RN 06/23/2024 Orders Only GENERIC EXTERNAL DATA DEPARTMENT Provider, Generic External Data 06/01/2024 Refill [facility] MED & PEDS [address] [place] [address] Lin Floyd MD 05/25/2024 Refill [facility] MED & PEDS [address] [place] [address] Lin Floyd MD from Last 3 Months Immunizations Name Administration [...] 02/29/2024 9:35 AM EDT Plan of Treatment Upcoming Encounters Date Type Department Care Team (Late st Contact Info) Description 09/18/2024 8:45 AM EDT Office Visit [facility] MED & PEDS [address] [place] [address] Saeed Cruz MD [address] [place] [address] Health Maintenance Due Date Last Done Comments Depression Screening 1940 Alcohol/Substance Use Screening 1950 RSV Patients and Patients Aged 60 years or older (1 - 1-dose 75+ series) 2013 Zoster Vaccines (2 of 3) 07/29/2015 06/03/2015 SDOH Screening 05/09/2024 05/09/2023 Tobacco Screening 02/28/2025 [...] Diagnosis Comments XR CHEST 2 VIEWS Routine 06/23/2024 1:18 PM EST [facility] COVID-19 AG Routine 06/23/2024 12:08 PM EST SARS COV2/INFLUENZA A/B AND RSV RNA QL NAAT Routine 06/23/2024 9:43 AM EST from Last 3 Months Results * XR Chest 2 Views (06/23/2024 1:18 PM EST) Anatomical Region Laterality Modality Chest Radiographic Marisa ging 06/23/2024 1:18 PM EST Narrative 06/23/2024 1:20 PM EST ? [facility] ?[address] ? [place] [address] ?XRay Report ? Signed ? Patient: Rodriguez,Cyndie ?MR#: [id number] ?? [id number] ? : 1940 ?Acct:[id number] ? Age/Sex: 84 / F ?ADM Date: 06/23/24 ? Loc: HO.[facility] ? Attending Dr: Blanca WILILAM ? Ordering Physician: Blanca Renee ?? Date of Service: 06/23/24 ?? Procedure(s): XR chest 2V ?? Accession Number(s): [id number] ? cc: Lin Floyd MD; Blanca Renee ? CLINICAL HISTORY: R05.9 - Cough, unspecified ? 2 view chest x-ray ? Comparison: None ? Findings: ?? The lungs are clear. ?? Normal size heart. ?? No acute fracture. ? IMPRESSION: ?? 1. No acute findings. ? This document has been electronically signed by: Weston Bailey MD on ?? 06/23/2024 13:18:54 ? Dictated By: ?Weston Bailey MD ? Signed By: ?<Electronically signed by Weston Bailey MD in OV> ? 06/23/24 1319 ? DD/ 1318 ? TD/TT: 06/23/24 1318 ? Supply Specialist: ? Procedure Note Shmuel, Image - 06/23/2024 [facility] [address] [place], [place] [address] XRay Report Signed Patient: Cyndie Rodriguez#: [id number] : 8Acct:[id number] Age/Sex: 84 / FADM Date: 06/23/24 Loc: [facility] Attending Dr: Blanca WILLIAM Ordering Physician: Blanca Renee Date of Service: 06/23/24 Procedure(s): XR chest 2V Accession Number(s): [id number] cc: Lin Floyd MD; Blanca Renee CLINICAL HISTORY: R05.9 - Cough, unspecified 2 view chest x-ray Comparison: None Findings: The lungs are clear. Normal size heart. No acute fracture. IMPRESSION: 1. No acute findings. This document has been electronically signed by: Weston Bailey MD on 06/23/2024 13:18:54 Dictated By: Weston Bailey MD Signed By: <Electronically signed by Weston Bailey MD in OV> 06/23/24 1319 DD/ 1318 TD/TT: 06/23/24 1318 Supply Specialist: [facility] External Provider IMG XR PROCEDURES Edited Result - Final * BinaxNOW Covid-19 Ag (06/23/2024 12:08 PM EST) [employer] GenomeW Covid-19 Ag Negative Negative [facility] Comment:Negative results wiliam uld be treated as presumptive andconfirmation with a molecular assay if necessary, forpatient management may be performed.Result reported to [facility].All test results must be correlated with clinical findings.This test has been authorized by the FDA under an EmergencyUse Authorization(EUA)for use by authorized laboratories.Testing performed on the Servio Covid-19 Ag Card which caryn lateral flow immunoassay. The test does not differentiatebetween the SARS-CoV and SARS-COV-2. 06/23/2024 12:0 8 PM EST 06/23/2024 12:31 PM EST Generic External Data Provider LAB BODY FLUIDS A ND STOOLS ORDERABLES Final Result [facility] [address] [place] [address] [phone] * (ABNORMAL) SARS-CoV-2 RNA, Influenza A/B, and RSV RNA, Ql NAAT (06/23/2024 9:43 AM EST) Influenza A PCR POSITIVE(A) Negative [facility] Influenza B PCR NEGATIVE Negative [facility] Resp Syncy Virus RNA Qual PCR NEGATIVE Negative [facility] SARS COV2 PCR NEGATIVE Negative [facility] Comment:All test results mus t [...] use by authorized laboratories.Testing performed on the [employer] GeneXpert utilizingreal-time RT-PCR.All SARS CoV2 and positive influenza A/B results arereported to [facility]. 06/23/2024 9:43 AM EST 06/23/2024 1:39 PM EST us Generic External Data Provider LAB MICROBIOLOGY - GENERAL ORDERABLES Final Result [facility] [address] [place] [phone] from Last 3 Months Insurance [employer] Advance Directives Documents on File Type Date Recorded Patient De Alcholizer Expl anation HealthCare Proxy 04/26/2023 Health Care Proxy Care Teams Stringer Up Soldering Machine Relationship Specialty Start Date End Date Lin Floyd MD [address] [place], [place] [address] [address] PCP - General Family Medicine 05/02/18
--- OUTSIDE RECORDS SUMMARY | 2024-08-15 18:11 | XMS_ITS | Encounter Summary ---
Author Organization [employer] [facility] Address [address] [place] [address] Care Team Providers Care School Transportation Supervisor Name Role Phone Lin Floyd MD Primary Care Provider [phone] Reason for Visit * Reason Comments Med Refill Encounter Details Date Type Department Care Team ([facility] Contact Info) Description 10/20/2022 Refill [facility] MED & PEDS [address] [place] [address] Jennifer Friedman MD [address] [place] [address] Social History Tobacco Use Types Packs/Day Years Used Date Smoking Tobacco: Former Cigarettes Comments Unknown Sex and Gender Information Value Date Recorded Sex Assigned at Female 03/01/2022 10:18 AM EDT Legal Sex Female 10:18 AM EDT Gender Identity Female 03/01/2022 10:18 AM EDT Sexual Orientation Straight 03/01/2022 10 :18 AM EDT documented as of this encounter Plan of Treatment Upcoming Encounters Date Type Department Care Team ([facility] Contact Info) Description 09/18/2024 8:45 AM EDT Office Visit [facility] MED & PEDS [address] [place] [address] Saeed Cruz MD [address] [place], [place] [id number] documented as of this encounter Visit Diagnoses Not on filedocumented in this encounter Care Teams School Transportation Supervisor Relationship Specialty Start Date End Date Lin Floyd MD [address] [place] [address] PCP - General Family Medicine 05/02/18 documented as of this encounter
--- OUTSIDE RECORDS SUMMARY | 2024-08-15 18:11 | XMS_ITS | Encounter Summary ---
Author Organization [employer] Address [address] [place] [address] Care Team Providers Care Assistant Shift Supervisor Name Role Phone Lin Floyd MD Primary Care Provider [phone] Encounter Details Date Type Department Care Team ([facility] Contact Info) Description 09/06/2023 Orders Only [facility] MED & PEDS [address] [place] [address] Provider, MD Viv Social History Tobacco Use [...] Description 09/18/2024 8:45 AM EDT Office Visit [facility] MED [facility] PEDS [address] [place] [address] Saeed Cruz MD [address] [place] [address] documented as of this encounter Procedures Procedure [...] on filedocumented in this encounter Care Teams Assistant Shift Supervisor Relationship Specialty Start Date End Date Lin Floyd MD [address] [place] [address] PCP - General Family Medicine 05/02/18 documented as of this encounter
--- OUTSIDE RECORDS SUMMARY | 2024-08-15 18:11 | XMS_ITS | Encounter Summary ---
Author Organization [employer] Address [address] [facility] [address] [place] [address] Care Team Providers Care Technical Services Specialist Name Role Phone Lin Floyd MD Primary Care Provider [phone] Reason for Visit * Reason Onset Date Comments callback requested 04/12/2024 Encounter Details Date Type Department Care Team ([facility] Contact Info) Description 04/12/2024 Telephone [facility] MEDICINE [address] [place] [address] Lin Floyd MD [address] [place] [address] callback requested Social History Tobacco Use Types [...] by call center does not work. Called [facility] care directly. Left messagefor Luz Cowart, occupational therapist director to call back. In future, call main number of [phone], ext: [phone]. * Telephone Encounter - Dyan Wolf - 04/12/2024 4:29 PM EST Tc from ash with [facility] requesting a callback (no further info discussed) [phone] documented in this encounter Plan of Treatment Upcoming Encounters Date Type Department Care Team (Late st Contact Info) Description 09/18/2024 8:45 AM EDT Office Visit [facility] MED & PEDS [address] [place] [address] Saeed Cruz MD [address] [place] [address] documented as of this encounter Visit Diagnoses Not on filedocumented in this encounter Care Teams Technical Services Specialist Relationship Specialty Start Date End Date Lin Floyd MD [address] [place] [address] PCP - General Family Medicine 05/02/18 documented as of this encounter
== END 2024-08-15 16:14 | disposition home or self-care (01) ==
PROVIDERS: PCP Pediatrics; Visit Provider Internal Medicine
DX: J44.9 Chronic obstructive pulmonary disease, unspecified (principal)
CPT/HCPCS: 99213

== ENCOUNTER → 2024-08-15 15:56 | Outpatient (BNVA) | payer MEDICARE, SELFPAY | PROVIDERS: PCP Pediatrics; Visit Provider Internal Medicine | DX: J44.9 Chronic obstructive pulmonary disease, unspecified (principal) | CPT/HCPCS: 99212 ==

== ENCOUNTER 2025-02-12 15:52 | Outpatient (AMB) | payer OTHER, SELFPAY ==
--- OUTSIDE RECORDS SUMMARY | 2025-02-08 20:00 | XMS_ITS | Clinical Summary ---
Author Organization Unknown Care Team Providers Care Lock Fitter Name Role Phone ELMA HELLER, NATANAEL Unavailable Unavailable PARKER DAVILA, BAILEY Unavailable Unavailable Payers Payer Name Policy Type Policy Number Effective Date Expira tion Date [facility] MEDICAID - [facility] [id number] [place] [id number] ON DEMAND MEDICARE - [place] [id number] Problems Condition Name Condition Details Condition Category Status Onset Date Resolution Date Last Treatment Date Treating Clinician Comments CHRONIC OBSTRUCTIVE PULMONARY DISEASE W (ACUTE) EXACERBATION Active 10-11 00:00: 00 UNSP DEMENTIA, UNSP SEVERITY, WITHOUT BEH/PSYCH/MO OD/ANX Active 10-08 00:00: 00 HYPOXEMIA Active 10-16 00:00: 00 TACHYCARDIA, UNSPECIFIED Active 10-09 00:00: 00 HYPERLIPIDEM IA, UNSPECIFIED Active 10-09 00:00: 00 GASTRO-ESOPH AGEAL REFLUX DISEASE WITHOUT ESOPHAGITIS Active 10-09 00:00: 00 ANXIETY DISORDER, UNSPECIFIED Active 10-16 00:00: 00 Allergies, Adverse Reactions, Alerts Allergy Name Allergy Type Status Severity Reaction(s) Onset Date Inactive Date Treating Clinician Comments NKA Propensity to adverse reactions Active 2024-09 20:49:5 9 Medications Ordered Medication Name Filled Medication Name Start Date Stop Date Current Medication? Ordering Clinician Indication Dosage Frequency Signature (SIG) Comments Components albuterol sulfate 2.5 mg/3 mL (0.083 %) solution for nebulizatio n 10-13 00:00: 00 Yes [id number] 2.5 mg EVERY 4-6 HOURS NEEDED 2.5 mg EVERY 4-6 HOURS NEEDED (route: inhalation ) Med Classific ation: Respirato ry Therapy Agents albuterol sulfate HFA 90 mcg/actuati on aerosol inhaler 10-12 00:00: 00 Yes [id number] 2 puff 4 TIMES DAILY 2 puff 4 TIMES DAILY (route: inhalation ) Med Classific ation: Respirato ry Therapy Agents aspirin 81 mg tablet 10-13 00:00: 00 Yes [id number] 1 tablet DAILY 1 tablet DAILY (route: oral) Med Classific ation: Hematolog ical Agents atorvastati n 20 mg tablet 10-13 00:00: 00 Yes [id number] 1 tablet DAILY 1 tablet DAILY (route: oral) Med Classific ation: Cardiovas cular Therapy Agents Breo Ellipta 100 mcg-25 mcg/dose powder for inhalation 10-13 00:00: 00 Yes [id number] 1 inhalat ion DAILY 1 inhalation DAILY (route: inhalation ) Med Classific ation: Respirato ry Therapy Agents Calcium with Vitamin D 600 mg-10 mcg (400 unit) tablet 10-13 00:00: 00 Yes [id number] 1 tablet DAILY 1 tablet DAILY (route: oral) Med Classific ation: Electroly te Balance-N utritiona l Products docusate sodium 100 mg capsule 10-13 00:00: 00 Yes [id number] 1 capsule 2 TIMES DAILY 1 capsule 2 TIMES DAILY (route: oral) Med Classific ation: Gastroint estinal Therapy Agents famotidine 20 mg tablet 10-13 00:00: 00 Yes [id number] 1 tablet 2 TIMES DAILY 1 tablet 2 TIMES DAILY (route: oral) Med Classific ation: Gastroint estinal Therapy Agents memantine 10 mg tablet 10-13 00:00: 00 Yes [id number] 1 tablet 2 TIMES DAILY 1 tablet 2 TIMES DAILY (route: oral) Med Classific ation: Cognitive Disorder Therapy multivitami n tablet 10-13 00:00: 00 Yes [id number] 1 tablet DAILY 1 tablet DAILY (route: oral) Med Classific ation: Electroly te Balance-N utritiona l Products prednisone 10 mg tablet 10-08 00:00: 00 10-09 23:59 :00 No [id number] 3 tablet DAILY 3 tablet DAILY (route: oral) Med Classific ation: Endocrine tiotropium bromide 18 mcg capsule with inhalation device 10-13 00:00: 00 Yes [id number] 1 inhalat ion DAILY 1 inhalation DAILY (route: inhalation ) Med Classific ation: Respirato ry Therapy Agents venlafaxine 75 mg tablet 10-13 00:00: 00 Yes [id number] 1 tablet DAILY 1 tablet DAILY (route: oral) Med Classific ation: Central Nervous System Agents prednisone 10 mg tablet 10-10 00:00: 00 10-11 23:59 :00 No [id number] 2 tablet DAILY 2 tablet DAILY (route: oral) Med Classific ation: Endocrine prednisone 10 mg tablet 10-12 00:00: 00 10-13 23:59 :00 No [id number] 1 tablet DAILY 1 tablet DAILY (route: oral) Med Classific ation: Endocrine oxygen gas for inhalation 10-16 00:00: 00 Yes [id number] FOR LOW OXYGEN LEVELS, DIFFICULTY BREATHING Per instruc tions O2 - PRN Per instructio ns O2 - PRN (route: inhalation ) Alternate Route: O2 - NASAL CANNULA. Med Classific ation: Medical Supplies and Durable Medical Equipment (DME) Vital Signs Vital Name Observation Time Observation Value Commen ts Temperature 2025-02-08 10:08:00.000 98.6 [degF] Temperature 2025-02-07 08:12:00.000 98.6 [degF] Temperature 2025-01-31 12:42:00.000 98.6 [degF] Temperature 2025-01-29 12:36:00.000 98.6 [degF] Temperature 2025-01-24 18:06:00.000 98.6 [degF] Temperature 2025-01-22 11:12:00.000 98.6 [degF] Temperature 2025-01-17 12:14:00.000 98.6 [degF] Temperature 2025-01-15 16:27:00.000 98.6 [degF] Temperature 2025-01-10 18:31:00.000 98.6 [degF] Temperature 2025-01-08 12:50:00.000 98.6 [degF] Temperature 2025-01-03 21:26:00.000 98.6 [degF] Temperature 2025-01-02 14:45:00.000 98.6 [degF] Temperature 2024-12-27 20:44:00.000 98.6 [degF] Temperature 2024-12-25 11:37:00.000 98.6 [degF] Temperature 2024-12-20 14:09:00.000 98.6 [degF] Temperature 2024-12-18 14:49:00.000 98.6 [degF] Pulse 2025-02-08 10:08:00.000 82 /min Pulse 2025-02-07 08:12:00.000 88 /min Pulse 2025-01-31 12:42:00.000 72 /min Pulse 2025-01-29 12:36:00.000 82 /min Pulse 2025-01-24 18:06:00.000 82 /min Pulse 2025-01-22 11:12:00.000 90 /min Pulse 2025-01-17 12:14:00.000 82 /min Pulse 2025-01-15 16:27:00.000 82 /min Pulse 2025-01-10 18:31:00.000 88 /min Pulse 2025-01-08 12:50:00.000 82 /min Pulse 2025-01-03 21:26:00.000 82 /min Pulse 2025-01-02 14:45:00.000 82 /min Pulse 2024-12-27 20:44:00.000 78 /min Pulse 2024-12-25 11:37:00.000 82 /min Pulse 2024-12-20 14:09:00.000 82 /min Pulse 2024-12-18 14:49:00.000 80 /min O2 Saturation (%) 2025-01-31 12:43:00.000 97 % O2 Saturation (%) 2025-01-17 12:15:00.000 97 % O2 Saturation (%) 2025-01-03 21:27:00.000 97 % O2 Saturation (%) 2024-12-27 20:45:00.000 97 % Respirations 2025-02-08 10:08:00.000 20 /min Respirations 2025-02-07 08:12:00.000 20 /min Respirations 2025-01-31 12:42:00.000 20 /min Respirations 2025-01-29 12:36:00.000 20 /min Respirations 2025-01-24 18:06:00.000 20 /min Respirations 2025-01-22 11:12:00.000 20 /min Respirations 2025-01-17 12:14:00.000 20 /min Respirations 2025-01-15 16:27:00.000 20 /min Respirations 2025-01-10 18:31:00.000 20 /min Respirations 2025-01-08 12:50:00.000 20 /min Respirations 2025-01-03 21:26:00.000 20 /min Respirations 2025-01-02 14:45:00.000 20 /min Respirations 2024-12-27 20:44:00.000 20 /min Respirations 2024-12-25 11:37:00.000 20 /min Respirations 2024-12-20 14:09:00.000 20 /min Respirations 2024-12-18 14:50:00.000 20 /min Systolic Blood Pressure 2025-02-08 10:08:00.000 122 mm [Hg] Systolic Blood Pressure 2025-02-07 08:12:00.000 142 mm [Hg] Systolic Blood Pressure 2025-01-31 12:42:00.000 121 mm [Hg] Systolic Blood Pressure 2025-01-29 12:36:00.000 112 mm [Hg] Systolic Blood Pressure 2025-01-24 18:06:00.000 142 mm [Hg] Systolic Blood Pressure 2025-01-22 11:12:00.000 139 mm [Hg] Systolic Blood Pressure 2025-01-17 12:14:00.000 116 mm [Hg] Systolic Blood Pressure 2025-01-15 16:27:00.000 132 mm [Hg] Systolic Blood Pressure 2025-01-10 18:31:00.000 138 mm [Hg] Systolic Blood Pressure 2025-01-08 12:50:00.000 118 mm [Hg] Systolic Blood Pressure 2025-01-03 21:26:00.000 142 mm [Hg] Systolic Blood Pressure 2025-01-02 14:45:00.000 132 mm [Hg] Systolic Blood Pressure 2024-12-27 20:44:00.000 148 mm [Hg] Systolic Blood Pressure 2024-12-25 11:37:00.000 134 mm [Hg] Systolic Blood Pressure 2024-12-20 14:09:00.000 142 mm [Hg] Systolic Blood Pressure 2024-12-18 14:49:00.000 132 mm [Hg] Diastolic Blood Pressure 2025-02-08 10:08:00.000 88 mm [Hg] Diastolic Blood Pressure 2025-02-07 08:12:00.000 88 mm [Hg] Diastolic Blood Pressure 2025-01-31 12:42:00.000 78 mm [Hg] Diastolic Blood Pressure 2025-01-29 12:36:00.000 70 mm [Hg] Diastolic Blood Pressure 2025-01-24 18:06:00.000 78 mm [Hg] Diastolic Blood Pressure 2025-01-22 11:12:00.000 81 mm [Hg] Diastolic Blood Pressure 2025-01-17 12:14:00.000 78 mm [Hg] Diastolic Blood Pressure 2025-01-15 16:27:00.000 78 mm [Hg] Diastolic Blood Pressure 2025-01-10 18:31:00.000 82 mm [Hg] Diastolic Blood Pressure 2025-01-08 12:50:00.000 78 mm [Hg] Diastolic Blood Pressure 2025-01-03 21:26:00.000 82 mm [Hg] Diastolic Blood Pressure 2025-01-02 14:45:00.000 78 mm [Hg] Diastolic Blood Pressure 2024-12-27 20:44:00.000 82 mm [Hg] Diastolic Blood Pressure 2024-12-25 11:37:00.000 82 mm [Hg] Diastolic Blood Pressure 2024-12-20 14:09:00.000 82 mm [Hg] Diastolic Blood Pressure 2024-12-18 14:49:00.000 78 mm [Hg] Plan of Treatment Planned Activity Planned Date Details Comments Future Scheduled Test SKILLED NU RSE TO EVALUATE PATIENT, IDENTIFY PRIMARY AND CO-MORBID CONDITIONS CODED PER CODING GUIDELINES, AND DEVELOP PATIENT SPECIFIC PLAN OF CARE THAT INCLUDES PATIENT GOAL FOR HOME HEALTH. [code = SKILLED NURSE TO EVALUATE PATIENT, IDENTIFY PRIMARY AND CO-MORBID CONDITIONS CODED PER CODING GUIDELINES, AND DEVELOP PATIENT SPECIFIC PLAN OF CARE THAT INCLUDES PATIENT GOAL FOR HOME HEALTH.] Future Scheduled Test SKILLED NU RSE TO PRE-POUR MEDICATION PER MEDICATION LIST [code = SKILLED NURSE TO PRE-POUR MEDICATION PER MEDICATION LIST] Future Scheduled Test PATIENT ARACELY Y HAVE ONE SET OF EMERGENCY MEDICATION NOT TO BE PRE-POURED ANY SOONER THAN 24 HOURS BEFORE SEVERE INCLEMENT WEATHER OR EMERGENT EVENT AND FOLLOWING SKILLED NURSE EVALUATION OF PATIENT SAFETY. [code = PATIENT MAY HAVE ONE SET OF EMERGENCY MEDICATION NOT TO BE PRE-POURED ANY SOONER THAN 24 HOURS BEFORE SEVERE INCLEMENT WEATHER OR EMERGENT EVENT AND FOLLOWING SKILLED NURSE EVALUATION OF PATIENT SAFETY.] Future Scheduled Test SKILLED NU RSE TO O/A OF PATIENTS MENTAL/BEHAVIORAL STATUS, ASSESS VITAL SIGNS EVERYVISIT, ALLOW 2 PRNS FOR MEDICATION MANAGEMENT. [code = SKILLED NURSE TO O/A OF PATIENTS MENTAL/BEHAVIORAL STATUS, ASSESS VITAL SIGNS EVERYVISIT, ALLOW 2 PRNS FOR MEDICATION MANAGEMENT.] Future Scheduled Test SKILLED NU RSE FOR O/A OF GENERAL HEALTH STATUS OF PAIN, CARDIAC, RESPIRATORY, GASTROINTESTINAL, GENITOURINARY, SKIN, NEUROLOGIC, ENDOCRINE SYSTEMS TO IDENTIFY CHANGES ASSOCIATED WITH EXACERBATION FOR EARLY INTERVENTION OF COMPLICATIONS WEEKLY. [code = SKILLED NURSE FOR O/A OF GENERAL HEALTH STATUS OF PAIN, CARDIAC, RESPIRATORY, GASTROINTESTINAL, GENITOURINARY, SKIN, NEUROLOGIC, ENDOCRINE SYSTEMS TO IDENTIFY CHANGES ASSOCIATED WITH EXACERBATION FOR EARLY INTERVENTION OF COMPLICATIONS WEEKLY.] Future Scheduled Test SKILLED NU RSE FOR O/A AND SKILLED TEACHING OF COPING SKILLS TO MANAGE ANXIETY AND MAINTAIN SAFETY. [code = SKILLED NURSE FOR O/A AND SKILLED TEACHING OF COPING SKILLS TO MANAGE ANXIETY AND MAINTAIN SAFETY.] Future Scheduled Test SKILLED NU RSE FOR O/A AND SKILLED TEACHING RELATED TO MANAGEMENT OF DEPRESSIVE SYMPTOMS AND/OR DEPRESSION. SN TO REPORT SIGNIFICANT CHANGE IN DEPRESSIVE SYMPTOMS TO CLINICAL PROVIDER FOR EARLY INTERVENTION. [code = SKILLED NURSE FOR O/A AND SKILLED TEACHING RELATED TO MANAGEMENT OF DEPRESSIVE SYMPTOMS AND/OR DEPRESSION. SN TO REPORT SIGNIFICANT CHANGE IN DEPRESSIVE SYMPTOMS TO CLINICAL PROVIDER FOR EARLY INTERVENTION.] Future Scheduled Test SKILLED NU RSE TO PERFORM HOME SAFETY AND FALL ASSESSMENT AND PROVIDE INSTRUCTION TO IMPLEMENT HOME SAFETY AND FALL PREVENTION STRATEGIES. [code = SKILLED NURSE TO PERFORM HOME SAFETY AND FALL ASSESSMENT AND PROVIDE INSTRUCTION TO IMPLEMENT HOME SAFETY AND FALL PREVENTION STRATEGIES.] Future Scheduled Test SKILLED NU RSE FOR O/A OF RESPIRATORY SYSTEM TO IDENTIFY CHANGES ASSOCIATED WITH EXACERBATION AND TO PROVIDE SKILLED TEACHING ON MANAGEMENT OF FOPD RESPIRATORY DISEASE PROCESS. [code = SKILLED NURSE FOR O/A OF RESPIRATORY SYSTEM TO IDENTIFY CHANGES ASSOCIATED WITH EXACERBATION AND TO PROVIDE SKILLED TEACHING ON MANAGEMENT OF FOPD RESPIRATORY DISEASE PROCESS.] Future Scheduled Test SKILLED NU RSE FOR TEACHING ON ADMINSTRATION OF INHALATION THERAPY AND CARE OF EQUIPMENT [code = SKILLED NURSE FOR TEACHING ON ADMINSTRATION OF INHALATION THERAPY AND CARE OF EQUIPMENT] Future Scheduled Test PATIENT ALANIZ S A RISK OF HOSPITALIZATION AND ED USE. SKILLED NURSE TO ESTABLISH SUPPORT MEASURES TO MINIMIZE RISK OF HOSPITALIZATION AND ED USE, AND INSTRUCT PATIENT/CAREGIVER ON METHODS TO REDUCE AVOIDABLE HOSPITALIZATION AND ED USE. [code = PATIENT HAS A RISK OF HOSPITALIZATION AND ED USE. SKILLED NURSE TO ESTABLISH SUPPORT MEASURES TO MINIMIZE RISK OF HOSPITALIZATION AND ED USE, AND INSTRUCT PATIENT/CAREGIVER ON METHODS TO REDUCE AVOIDABLE HOSPITALIZATION AND ED USE.] Future Scheduled Test SKILLED NU RSE FOR O/A OF MUSCULOSKELETAL STATUS AND TEACHING ON MEASURES TO MANAGE MUSCULOSKELETAL DISEASE) AND TO MAINTAIN SAFETY WITH ACTIVITY [code = SKILLED NURSE FOR O/A OF MUSCULOSKELETAL STATUS AND TEACHING ON MEASURES TO MANAGE MUSCULOSKELETAL DISEASE) AND TO MAINTAIN SAFETY WITH ACTIVITY] Future Scheduled Test SKILLED NU RSE TO ASSESS PATIENT S PSYCHOSOCIAL STATUS TO IDENTIFY POTENTIAL ISSUES THAT MAY COMPLICATE THE PROVISION OF THE PLAN OF CARE INCLUDING THE PATIENT S ABILITY TO ACCESS COMMUNITY RESOURCES AND PSYCHOSOCIAL SUPPORT SERVICES. [code = SKILLED NURSE TO ASSESS PATIENT S PSYCHOSOCIAL STATUS TO IDENTIFY POTENTIAL ISSUES THAT MAY COMPLICATE THE PROVISION OF THE PLAN OF CARE INCLUDING THE PATIENT S ABILITY TO ACCESS COMMUNITY RESOURCES AND PSYCHOSOCIAL SUPPORT SERVICES.] Future Scheduled Test SKILLED NU RSE WILL MAINTAIN SITUATIONAL AWARENESS FOR SAFETY AND WILL NOTIFY CLINICAL BIOINFORMATICS SPECIALIST AND PHYSICIAN/PROVIDER WITH ANY CHANGE IN CONDITION. [code = SKILLED NURSE WILL MAINTAIN SITUATIONAL AWARENESS FOR SAFETY AND WILL NOTIFY CLINICAL BIOINFORMATICS SPECIALIST AND PHYSICIAN/PROVIDER WITH ANY CHANGE IN CONDITION.] Future Scheduled Test OXYGEN VIA NASAL CANNULA) @ 2 LITERS PRN/CONTINUOUS). SKILLED NURSE FOR O/A AND SKILLED TEACHING OF SAFE OXYGEN USE IN THE HOME. [code = OXYGEN VIA NASAL CANNULA) @ 2 LITERS PRN/CONTINUOUS). SKILLED NURSE FOR O/A AND SKILLED TEACHING OF SAFE OXYGEN USE IN THE HOME.] Goal Patient Goal - FEEL BETTER Goal 2024-12-07 Patient Goal - FEEL BETTER Goal 2025-02-05 Patient Goal - FEEL BETTER Goal Provider Goal - A PLAN OF CARE WILL BE ESTABLISHED THAT MEETS PATIENT'S SENIOR LIVING NEEDS AND INCLUDES PATIENT GOAL FOR HOME HEALTH. Goal Provider Goal - PATIENT WILL COMPLY WITH MEDICATION WHEN SKILLED NURSE PRE-POURS MEDICATION THROUGHOUT CERTIFICATION PERIOD. Goal Provider Goal - MEDICATION WILL BE AVAILABLE DURING INCLEMENT WEATHER OR EMERGENT EVENT THROUGHOUT CERTIFICATION PERIOD. Goal Provider Goal - ALTERED MENTAL/BEHAVIORAL STATUS WILL BE IDENTIFIED PROMPTLY AND INTERVENTION INITIATED QUICKLY TO MINIMIZE ASSOCIATED RISKS THROUGHOUT CERTIFICATION PERIOD. Goal Provider Goal - CHANGE IN GENERAL HEALTH STATUS WILL BE IDENTIFIED AND REPORTED TO PHYSICIAN FOR PROMPT INTERVENTION TO MINIMIZE ASSOCIATED RISKS THROUGHOUT CERTIFICATION PERIOD. Goal Provider Goal - PATIENT WILL BE ABLE TO PERFORM DAILY FUNCTIONS AND HAVE OPTIMAL IMPROVEMENT IN LEVEL OF ANXIETY THROUGHOUT CERTIFICATION PERIOD. Goal Provider Goal - PATIENT WILL REMAIN SAFE WITHOUT DECOMPENSATION IN DEPRESSIVE CONDITION, WHILE MAINTAINING OPTIMAL LEVEL OF MENTAL HEALTH AND WELL BEING THROUGHOUT CERTIFICATION PERIOD. Goal Provider Goal - PATIENT/CAREGIVER WILL VERBALIZE/DEMONSTRATE EFFECTIVE HOME SAFETY AND FALL PREVENTION STRATEGIES THROUGHOUT CERTIFICATION PERIOD. Goal Provider Goal - PATIENT/CAREGIVER WILL VERBALIZE/DEMONSTRATE MANAGEMENT OF RESPIRATORY DISEASE PROCESS. CHANGES IN RESPIRATORY STATUS WILL BE IDENTIFIED AND REPORTED TO PHYSICIAN FOR PROMPT INTERVENTION THROUGHOUT THE CERTIFICATION PERIOD. Goal Provider Goal - PATIENT/CAREGIVER WILL VERBALIZE/DEMONSTRATE INDEPENDENCE WITH ADMINISTRATION OF ORDERED INHALATION THERAPY AND CARE OF EQUIPMENT A RESULT OF SKILLED TEACHING THROUGHOUT THE EPISODE. Goal Provider Goal - PATIENT WILL HAVE SUPPORT MEASURES ESTABLISHED TO PREVENT HOSPITALIZATION AND ED USE AND PATIENT/CAREGIVER WILL VERBALIZE/DEMONSTRATE METHODS TO REDUCE AVOIDABLE HOSPITALIZATION AND ED USE BY END OF EPISODE. Goal Provider Goal - PATIENT/CAREGIVER WILL VERBALIZE/DEMONSTRATE ABILITY TO MANAGE MUSCULOSKELETAL DISEASE WHILE MAINTAINING SAFETY THROUGHOUT THE EPISODE. Goal Provider Goal - PSYCHOSOCIAL NEEDS WILL BE IDENTIFIED AND PLAN IMPLEMENTED TO MINIMIZE RISK THROUGHOUT CERTIFICATION PERIOD. Goal Provider Goal - PATIENT WILL REMAIN SAFE IN THE COMMUNITY AND WILL BE FREE OF DANGER TO SELF AND OTHERS THROUGHOUT THE CERTIFICATION PERIOD. Goal Provider Goal - PATIENT/CAREGIVER WILL VERBALIZE/DEMONSTRATE UNDERSTANDING OF SAFE OXYGEN USE IN THE HOME THROUGHOUT THE EPISODE. Encounters Start Date/Time End Date/Time Encounter Type Admission Type Attending Clinicians Care Facility Care Department Encounter ID Discharge Date Discharge Status Discharge Condition Discharge Reason Percent Goals Met 2024-12-12 00:00:00 2025-02-09 00:00:00 Outpatient RECERTIFIC [facility] [id number] 0.00
[2025-02-12 16:05] VITALS: BP 130/60; PULSE 101; O2SAT 95
--- NOTE | 2025-02-12 16:05 | MHC.OFFVIS ---
Vital Signs 02/12/25 16:05 Height 4 ft 9 in BP 130/60 Blood Pressure Location Lt brachial Position Sitting Pulse 101 H Pulse Source Pulse Oximeter Pulse Oximetry (%) 95 Oxygen Delivery Method Room Air Intake Visit Reasons: COPD Intake Note: pt is here for follow up and states she is feeling well with breathing, no issues at this time. Financial Services Professional Required: No Financial Services Professional Services: Financial Services Professional Offered & Declined Cattle Inspector: Cattle Inspector offered & declined Allergies No Known Allergies Allergy (Verified 02/12/25 16:19) Medication List - Last Reconciled 02/12/25 by Zehra Amador MD albuterol sulfate 90 mcg/actuation 0 mcg inhalation albuterol sulfate 2.5 mg (3 mL) inhalation Q4-6H PRN 30 days aspirin 81 mg PO DAILY atorvastatin 20 mg PO DAILY calcium carbonate-vitamin D3 600 mg-5 mcg (200 unit) 1 tab PO QAM celecoxib 100 mg PO DAILY docusate sodium 100 mg PO DAILY famotidine 20 mg PO BID fluticasone furoate-vilanterol 100-25 mcg/dose (Breo Ellipta) 1 ea PO DAILY memantine 10 mg PO BID multivitamin 1 tab PO QAM Spiriva with HandiHaler (tiotropium bromide) 1 cap inhalation DAILY 30 days NS venlafaxine 75 mg PO DAILY Do you need a note to return to daycare/school/sports/work: No HPI HPI COPD: Details: THIS 84 YEARS OLD VERY PLEASANT IVORIAN-SPEAKING FEMALE, COMES FOR FOLLOW-UP FOR HER COPD, AFTER 6 MONTHS. FAR BREATHING IS CONCERNED IT HAS BEEN VERY STABLE AND WELL CONTROLLED. SHE HAS ONLY INTERMITTENT BOUTS OF COUGH. MOSTLY REMAINS IN THE WHEELCHAIR AND HAS NO EXERTIONAL DYSPNEA. CONTINUES TO USE BREO AND SPIRIVA REGULARLY AND ALBUTEROL ONLY NEEDED.. HER DAUGHTER WHO TAKES CARE OF HER BRINGS HER HERE IN WHEELCHAIR. [facility] Medical History Contusion of right wrist Contusion of right shoulder Cough in adult Contusion of left wrist Contusion of left shoulder Cavitary lesion of lung Pneumonia COPD (chronic obstructive pulmonary disease) Depression Anxiety COPD (chronic obstructive pulmonary disease) Hyperlipidemia Surgical History History of ankle surgery Social History Are you a primary childcare center administrator to a significant other at home: No Do you presently have visiting nurse or other home services: No Alcohol intake: never Patient Tobacco Use Status: Former Tobacco user Advance Directives Date on File: 05/02/16 Current occupation: rt handed Review of Systems Const All systems reviewed & are unremarkable except as noted in HPI and below Eyes Reports no additional complaints ENT Reports nasal congestion (Mild intermittent) Card Denies chest pain, Denies irregular heart rhythm and Denies leg edema Resp Reports as per HPI (AT PRESENT SHE DOES HAVE INCREASED AMOUNT OF COUGH) GI Reports heartburn (Mild GERD symptoms controlled with medicine) Reports no additional complaints Musc Reports abnormal gait (Impaired gait and she uses walker in the house) and Reports muscle weakness (Lower extremities) Skin/Breast Reports system reviewed and no additional complaints, except as documented Neuro Reports abnormal gait (Impaired gait and she uses walker in the house) and 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) Psych Reports no additional complaints and 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) Physical Exam Vital Signs: Last Vital Signs Pulse 101 H 02/12/25 16:05 BP 130/60 02/12/25 16:05 Pulse Ox 95 02/12/25 16:05 Oxygen Delivery Method Room Air 02/12/25 16:05 Const Other: Very pleasant, in wheelchair General: comfortable, no acute distress, alert and awake Orientation/consciousness: patient oriented x3 HEENT Head: Yes normal to inspection General nose exam: No nasal polyps present and No nasal discharge present Face and sinus: Yes sinuses nontender Mouth: oropharynx normal Throat: Yes posterior oropharynx normal Eyes General: appearance normal, both eyes and all related structures Neck Neck: Yes normal visual inspection, Yes no lymphadenopathy, Yes trachea midline and Yes no JVD Thyroid: Thyroid normal Chest Chest palpation & inspection: normal inspection of the chest, normal palpation of entire chest wall and no tenderness Resp Other: Percussion note is resonant . Breath sounds are distant with prolonged expiratory phase . On auscultation she does not have any localized crepitations or wheezes, both sides. are quite clear Cardio Palpation: normal PMI Rate: regular rate Rhythm: regular rhythm Heart sounds: no gallops and no murmurs GI Palpation (GI): Soft to palpation, nontender, No hepatosplenomegaly present and no masses Auscultation: normal bowel sounds Back/Spine/Pelvis Thoracic/Lumbar Spine: thoracic and lumbar spine normal to inspection and thoraco-lumbar ROM limited Skin General skin exam: no rashes or lesions noted Neuro General: patient oriented x3, No gait normal (Impaired gait and she uses walker for stability) and no focal motor deficits Cranial nerves: Yes CN's II-XII intact bilaterally Extrem General: Yes normal to inspection, Yes no clubbing, cyanosis or edema, Yes no calf tenderness and Yes other (Toes of both feet are cold, but peripheral pulses normal. ( vaso motor )) Psych Appearance: grossly normal and well kempt Speech and movement: Normal speech and movement present Assessment & Plan Assessment & Plan (1) COPD (chronic obstructive pulmonary disease): Comment: This patient has long-standing history of chronic obstructive pulmonary disease. As per PFT, COPD is moderately severe, without much response to bronchodilators. COPD is related to her previous smoking but luckily she quit more than 20 years ago. Doing very well with her current regimen. Code(s): J44.9 - Chronic obstructive pulmonary disease, unspecified Category: Medical Plan: Continue to use Breo 100-251 inhalation daily , Spiriva HandiHaler 1 inhalation daily and albuterol HFA 2 puffs Q 4-6 hours only p.r.n. alternatively albuterol solution in the nebulizer Q 6 hours p.r.n.. Coding Level of Care Code Est Pt Level 3 (38078) Diagnoses COPD (chronic obstructive pulmonary disease) J44.9
--- OUTSIDE RECORDS SUMMARY | 2025-02-12 18:25 | XMS_ITS | Clinical Summary ---
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 07/27/2011 Anxiety state 07/27/2011 Allergic rhinitis 07/27/2011 Resolved Problems Problem Noted Date Diagnosed Date Resolved Date Severe chronic obstructive p ulmonary disease ([facility] V24, [facility] V28) 08/03/2022 06/23/2024 Mild persistent asthma 10/20/201606/23 Surgical History Surgery Date Site/Laterality Comments HERNIA REPAIR Medical History Medical History Date Comments Severe chronic obstructive p ulmonary disease ([facility] V24, [facility] V28) 08/03/2022 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 10/20/2016 Anxiety state 07/27/2011 Allergic rhinitis 07/27/2011 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 COPD with acute exacerbation ([facility] V24, [facility] V28) 08/03/2022 Depressive disorder 07/27/2011 Pure [...] Sign Reading Time Taken Comments Blood Pressure 123/53 10/06/2024 8:01 PM EDT Pulse 123 10/06/2024 8:01 PM EDT Temperature 38.1 C (100.6 F) 10/06/2024 8:01 PM EDT Respiratory Rate 24 10/06/2024 8:01 PM EDT Oxygen Saturation 94% 10/06/2024 8:01 PM EDT Inhaled Oxygen Concentration - - Weight 62.6 kg (138 lb) 10/06/2024 5:43 PM EDT Height 144.8 cm (4' 9 ) 10/06/2024 5:43 PM EDT Body Mass Index 29.86 10/06/2024 5:43 PM EDT Plan of Treatment Health Maintenance Due Date Last Done Comments RSV Immunization Adult Patients (1 - 1-dose 75+ series) 2013 Zoster Vaccines (2 of 3) 07/29/2015 06/03/2015 Cholesterol Screening (Lipid Panel) 12/26/2023 Falls Risk Assessment 12/26/2023 Medicare Annual Wellness Visit 12/26/2023 Osteoporosis Screening (Bone Density Screening) 12/26/2023 Social Influencers of Health Screening 12/26/2023 Depression Screening 05/02/2024 COVID-19 Vaccine ( season) 2024 03/09/2024, 05/09/2023, 02/10/2021, Additional history exists Influenza Vaccine (#1) 2024 , 02/23/2023, 01/25/2022, Additional history exists DTaP,Tdap,and Td Vaccines (2 - Td or [...] on patient's age to complete this topic Insurance [employer] Advance Directives [...] currently active code status orders. Care Teams Clinical Lab Scientist Relationship Specialty Start Date End Date Lin Floyd MD [address] [facility] [place] [id number] PCP - General Internal Medicine 10/06/24
--- OUTSIDE RECORDS SUMMARY | 2025-02-12 18:25 | XMS_ITS | Encounter Summary ---
Author Organization [employer] Address [address] [place] [address] 7 [place] [address] Care Team Providers Care Moisture Meter Reader Name Role Phone Lin Floyd MD Primary Care Provider [phone] Reason for Visit * Reason Onset Date Comments questions 12/28/2024 Encounter Details Date Type Department Care Team ([facility] Contact Info) Description 12/28/2024 Telephone [facility] CHC MED & PEDS [address] [place], [place] [phone] Lin Floyd MD [address] [place] [address] questions Social History Tobacco Use Types Packs/Day Years Used Date Smoking Tobacco: Former Cigarettes Passive Smoke Exposure: Never Depression Answer Date Recorded Patient Health Questionnaire-9 Score 0 09/18/2024 Patient Health Questionnaire-9 Score 0 09/18/2024 Last PHQ-9: Questionnaire Data Not on file 0 09/18/2024 Housing Stability Answer Date Recorded What is your housing situation today? I have adan león 09/18/[address] you li ve. Do you have problems with any of the following? None of the above 09/18/2024 Food Insecurity Answer Date Recorded Within the past 12 months, y ou worried that your food would run out before you got money to buy more: Never True 09/18/2024 Within the past 12 months,th e food you bought just didn't last and you didn't have enough money to get more: Never True Transportation Answer Date Recorded In the past 12 months, has l ack of transportation kept you from medical appts, meetings, work or from getting things needed for daily living? No 09/18/2024 Utilities Answer Date Recorded In the past 12 months, has t he electric, gas, oil or water company threatened to shut off services in your home? No 09/18/2024 Depression Answer Date Recorded Patient Health Questionnaire-2 Score 0 09/18/2024 Internet Access Answer Date Recorded Internet Access Q1 Yes 09/18/2024 Internet Access Q2 Not on file 09/18/2024 Comments Unknown Sex and Gender Information Value Date Recorded Sex Assigned at Female 03/01/2022 10:18 AM EDT Legal Sex Female 10:18 AM EDT Gender Identity Female 03/01/2022 10:18 AM EDT Sexual Orientation Straight 03/01/2022 10 :18 AM EDT documented as of this encounter Miscellaneous Notes * Telephone Encounter - Mary Owen - 12/28/2024 3:13 PM EDT Tc from Cyril at [facility] requesting a call back to discuss answers to these questions Any History of UTI? Is the elder medical and medication compliant? Does the elder have capacity? What is the elders level of care? Does the elder require 24 hour care? Can the elder live alone/independently? Does the elder have the health care proxy on file and is it invoked? Contact Cyril lawton at [phone] ext [phone] documented in this encounter Plan of Treatment Not on file documented as of this encounter Visit Diagnoses Not on filedocumented in this encounter Additional Health Concerns Assessment Noted Time PHQ-9 Depression Total Score: 0 09/19/19 10:38 AM EDT documented as of this encounter Care Teams Moisture Meter Reader Relationship Specialty Start Date End Date Lin Floyd MD [address] [place] [address] PCP - General Family Medicine 05/02/18 [facility] 10/13/24 documented as of this encounter
--- OUTSIDE RECORDS SUMMARY | 2025-02-12 18:25 | XMS_ITS | Encounter Summary ---
Author Organization [employer] [facility] Address [address] [facility] 7t [place] [address] Care Team Providers Care Cutter Grind Tool Technician Name Role Phone Lin Floyd MD Primary Care Provider [phone] Encounter Details Date Type Department Care Team ([facility] Contact Info) Description 10/08/2024 Orders Only [facility] [address] [place], [place] [phone] Provider, MD Viv Social History Tobacco Use [...] Diagnosis Comments XR CHEST 2 VIEWS Routine 10/06/2024 11:47 AM EDT ECG 12-LEAD Routine 10/06/2024 10:32 AM EDT documented in this encounter Results * XR Chest 2 Views (10/06/2024 11:47 AM EDT) Anatomical Region Laterality Modality Chest Radiographic Marisa ging us Historical Provider IMG XR PROCEDURES Final R esult * ECG 12 lead (10/06/2024 10:32 AM EDT) us Historical Provider ECG ORDERABLES Final Res ult documented in this encounter Visit Diagnoses Not on filedocumented in this encounter Additional Health Concerns Assessment Noted Time PHQ-9 Depression Total Score: 0 09/19/19 10:38 AM EDT documented as of this encounter Care Teams Cutter Grind Tool Technician Relationship Specialty Start Date End Date Lin Floyd MD [address] [place] [address] PCP - General Family Medicine 05/02/18 [facility] 10/13/24 documented as of this encounter
--- OUTSIDE RECORDS SUMMARY | 2025-02-12 18:25 | XMS_ITS | Encounter Summary ---
Author Organization [employer] [facility] Address [address] [place] [address] [address], [place] [address] Care Team Providers Care Restaurant Host/Hostess Name Role Phone Lin Floyd MD Primary Care Provider [phone] Reason for Visit * Reason Comments Med Refill Encounter Details Date Type Department Care Team ([facility] Contact Info) Description 10/20/2022 Refill C [facility] MED & PEDS [address] [place] [address] Jennifer Friedman MD [address] [place] [address] Social History Tobacco Use Types Packs/Day Years [...] on filedocumented in this encounter Care Teams Restaurant Host/Hostess Relationship Specialty Start Date End Date Lin Floyd MD [address] [place] [address] PCP - General Family Medicine 05/02/18 [facility] 10/13/24 documented as of this encounter
--- OUTSIDE RECORDS SUMMARY | 2025-02-12 18:25 | XMS_ITS | Encounter Summary ---
Author Organization [employer] Address [address] [facility] 7 [place] [address] Care Team Providers Care Pneumatic Jacketer Name Role Phone Lin Floyd MD Primary Care Provider [phone] Reason for Visit * Reason Onset Date Comments PT1 09/20/2024 Encounter Details Date Type Department Care Team ([facility] Contact Info) Description 09/20/2024 Telephone [facility] MEDICINE [address] [place] [address] Lin Floyd MD [address] [place], [place] [phone] PT1 Social History Tobacco Use Types Packs/Day Years [...] encounter Miscellaneous Notes * Telephone Encounter - Justina Segura - 09/20/2024 12:43 PM EDT Patient calling requesting PT1 Home Address verified: Y/N: Yes Provider name or facility name: [address] [place], [place] - [facility] Escort needed: Y/N: Yes Do you have a wheelchair: Y/N: Yes If yes- Manual or electric: Manual Visits: (2x monthly) documented in this encounter Plan of Treatment Not on file documented as of this encounter Visit Diagnoses Not on filedocumented in this encounter Additional Health Concerns Assessment Noted Time PHQ-9 Depression Total Score: 0 09/19/19 10:38 AM EDT documented as of this encounter Care Teams Pneumatic Jacketer Relationship Specialty Start Date End Date Lin Floyd MD [address] [place] [address] PCP - General Family Medicine 05/02/18 [facility] 10/13/24 documented as of this encounter
--- OUTSIDE RECORDS SUMMARY | 2025-02-12 18:25 | XMS_ITS | Clinical Summary ---
Author Organization [employer] Address [address] [place] [address] 7t [place] [address] Care Team Providers Care Electroneurodiagnostic Technician Name Role Phone Lin Floyd MD Primary Care Provider [phone] Allergies No known active allergies Medications Melatonin 3 MG capsule take 1 capsule orally qhs 1 Active acetaminophen (Tylenol) 500 MG tablet take 2 tablet by oral route every 12 hours as needed for Pain,Moderate 4-6 On Pain Scale 9 Active benzonatate (Tessalon) 100 MG capsule TAKE ONE CAPSULE EVERY TWELVE HOURS NEEDED 30 capsule 3 Active albuterol 108 (90 Base) MCG/ACT inhalerIndicatio ns:Simple chronic bronchitis (CMS/HCC) (HCC) INHALE TWO PUFFS FOUR TIMES DAILY NEEDED 8.5 g 2 4 Active celecoxib (CeleBREX) 100 MG capsuleIndicatio ns:Pain TAKE ONE CAPSULE BY MOUTH EVERY DAY WITH FOOD NEEDED 30 capsule 3 4 Active venlafaxine XR (Effexor XR) 75 MG 24 hr capsule TAKE ONE CAPSULE EVERY EVENING WITH FOOD 30 capsule 11 4 Active Multiple Vitamin (Multivitamin) tablet TAKE ONE TABLET EVERY MORNING 90 tablet 4 4 Active famotidine (Pepcid) 20 MG tabletIndication s:Gastroesophage al reflux disease without esophagitis TAKE ONE TABLET IN THE MORNING AND EVENING 180 tablet 4 4 Active Calcium Carb-Cholecalcif michelle 600-5 MG-MCG tabletIndication s:Gastroesophage al reflux disease without esophagitis TAKE ONE TABLET EVERY MORNING 90 tablet 4 4 Active atorvastatin (Lipitor) 20 MG tablet TAKE ONE TABLET EVERY NIGHT AT BEDTIME 90 tablet 4 4 Active memantine (Namenda) 10 MG tablet TAKE ONE TABLET IN THE MORNING AND EVENING 180 tablet 3 5 Active Spiriva HandiHaler 18 MCG inhalation capsuleIndicatio ns:COPD mixed type (CMS/HCC) ([facility]) USE 1 CAPSULE FOR INHALATION ONCE A DAY DO NOT SWALLOW CAPSULE 30 capsule 11 5 Active Fluticasone Furoate-Vilanter ol (Breo Ellipta) 100-25 MCG/ACT aerosol powder Inhale 1 puff Once per day. 60 each 5 5 Active albuterol (2.5 MG/3ML) 0.083% nebulizer solutionIndicati ons:Chronic bronchitis, unspecified chronic bronchitis type (CMS/HCC) ([facility]) USE ONE AMPULE USING A NEBULIZER EVERY 4 HOURS NEEDED 90 mL 3 5 Active Aspirin Adult Low Strength 81 MG EC tablet TAKE ONE TABLET EVERY NIGHT AT BEDTIME 30 tablet 11 5 Active Blood Pressure kit 1 kit Once per day. 1 kit 5 Active QUEtiapine (SEROquel) 25 MG tablet TAKE ONE-HALF TABLET BEDTIME NEEDED FOR SLEEP 15 tablet 3 5 Active Active Problems Problem Noted Date Diagnosed Date Elevated blood pressure read ing in office without diagnosis of hypertension 09/18/2024 Assessment & Plan (09/18/2024 11:05 AM EDT): Will order a bp monitor, keep low sodium diet and follow up in 2 weeks with nurses for a bp check Chronic pain of both shoulders 09/18/2024 Assessment & Plan (09/18/2024 11:06 AM EDT): Patient is pending evaluation for a house ramp due to her chronic upper extremity pain and lower extremity weakness Weakness of both lower extremities 09/18/2024 Assessment & Plan (09/18/2024 11:06 AM EDT): Chronic, pending evaluation for a house ramp to aid in her activities and mobility Severe chronic obstructive pulmonary disease (CM S/HCC) 08/03/2022 COPD with acute exacerbation ([facility]) Assessment & Plan (08/03/2022 4:25 PM EDT): [...] Encounters Date Type Department Care Team Description 01/09/2025 Telephone [facility] CHC MED & PEDS [address] [place] [address] Lin Floyd MD Nurse Triage 01/04/2025 Telephone [facility] MED & PEDS [address] [place] [address] Lin Floyd MD Medication Question 01/04/2025 Telephone [facility] MED & PEDS [address] [place] [address] Lin Flody MD Immunizations 01/02/2025 [facility] MED & PEDS [address] [place] [address] Lin Floyd MD 01/02/2025 Telephone [facility] MEDICINE [address] [place] [address] Lin Floyd MD Call Back Request 12/28/2024 Telephone [facility] CHC MED & PEDS [address] [place] [address] Lin Floyd MD questions 12/19/2024 Telephone [facility] MED & PEDS [address] [place] [address] Lin Floyd MD GSSI Report 12/18/2024 Telephone [facility] MED & PEDS [address] [place] [address] Lin Floyd MD Call Back Request 11/29/2024 Telephone [facility] MEDICINE [address] [place], [place] [phone] Lin Floyd MD 11/20/2024 Telephone [facility] MEDICINE [address] [place], [place] [phone] Lin Floyd MD 11/20/2024 Telephone [facility] CHC MED & PEDS [address] [place] [address] Lin Floyd MD 11/17/2024 Refill [facility] CHC MED & PEDS [address] [place] [address] Lin Floyd MD 11/15/2024 Orders Only [facility] MED & PEDS [address] [place], [place] [phone] Lin Floyd MD Unsteady gait (Primary Dx) 11/13/2024 Telephone [facility] MED & PEDS [address] [place], [place] [phone] Lin Floyd MD Referral from Last 3 Months Immunizations Immunization Administration Dates Next Due Influenza High-dose Quadriva lent Preservative Free 02/23/2023,01/25/2022,02/19/2021 Influenza injectable quadriv alent IIV4 with preservative 01/21/2015 Influenza injectable quadriv alent preservative free 02/19/2020 Influenza, High Dose Seasona l, Preservative Free 03/16/2024,02/01/2019 Influenza, IIV3, injectable 02/15/2014 Influenza, Split (incl. socorro fied surface antigen) 01/19/2013,02/11/2012 Pfizer Covid-19 Vaccine 12+ 05/09/2023 Pneumococcal Conjugate PCV 13 01/21/2015 Pneumococcal Polysaccharide PPSV23 02/01/2019, Tdap 06/03/2015 Zoster, live 06/03/2015 Social History Tobacco Use Types Packs/Day Years Used Date Smoking Tobacco: Former Cigarettes Passive Smoke Exposure: Never Tobacco Cessation:Counseling Given: Not Answered Depression Answer Date Recorded Patient Health Questionnaire-9 [...] Sign Reading Time Taken Comments Blood Pressure 126/63 10/26/2024 9:23 AM EDT Pulse 106 10/26/2024 9:23 AM EDT Temperature 36.6 C (97.8 F) 10/26/2024 9:23 AM EDT Respiratory Rate 20 10/26/2024 9:23 AM EDT Oxygen Saturation 96% 10/26/2024 9:23 AM EDT Inhaled Oxygen Concentration - - Weight 55.8 kg (123 lb) 10/26/2024 9:23 AM EDT Height 144.8 cm (4' 9 ) 10/26/2024 9:23 AM EDT Body Mass Index 26.62 10/26/2024 9:23 AM EDT Plan of Treatment Health Maintenance Due Date Last Done Comments Alcohol/Substance Use Screening 1952 RSV Patients and Patients Aged 60 years or older (1 - 1-dose 75+ series) 2013 Zoster Vaccines (2 of 3) 07/29/2015 06/03/2015 COVID-19 Vaccine (6 - 2023- season) 2024 03/09/2024, 05/09/2023, 02/10/2021, Additional history exists Influenza Vaccine (#1) 2024 , 02/23/2023, 01/25/2022, Additional history exists Tobacco Screening 02/28/2025 02/29/2024 DTaP/Tdap/Td Vaccines (2 - Td or Tdap) 06/03/2025 06/03/2015 Depression Screening 09/18/2025 09/18/2024, 09/19/19 SDOH Screening 09/18/2025 09/18/2024 Pneumococcal Vaccine: 50+ Years Completed 02/01/2019, 01/21/2015, [...] patient's age to complete this topic Insurance [employer]IM [employer] [place] [id number] Advance Directives Documents on File Type Date Recorded 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
--- OUTSIDE RECORDS SUMMARY | 2025-02-12 18:25 | XMS_ITS | Encounter Summary ---
Author Organization [employer] [facility] Address [address] [facility] 7 [place] [address] Care Team Providers Care Planimeter Operator Name Role Phone Lin Floyd MD Primary Care Provider [phone] Reason for Visit * Reason Onset Date Comments Call Back Request 01/02/2025 Encounter Details Date Type Department Care Team ([facility] Contact Info) Description 01/02/2025 Telephone [facility] MEDICINE [address] [place] [address] Lin Floyd MD [address] [place], [place] [phone] Call Back Request Social History Tobacco Use Types Packs/Day Years [...] encounter Miscellaneous Notes * Telephone Encounter - Leon Kelechi - 01/02/2025 12:21 PM EDT TC from Delmi with [facility] requesting a call back due to questions they have regarding patient. Questions: If patient has decisional capacity? Does the patient have a health care proxy? If yes, who is the proxy? Does the PCP believe patient needs a higher level of care? Does the PCP have any concerns regarding patient? Caller name : Delmi Number: [phone]. documented in this encounter Plan of Treatment Not on file documented as of this encounter Visit Diagnoses Not on filedocumented in this encounter Additional Health Concerns Assessment Noted Time PHQ-9 Depression Total Score: 0 09/19/19 10:38 AM EDT documented as of this encounter Care Teams Planimeter Operator Relationship Specialty Start Date End Date Lin Floyd MD [address] [place] [address] PCP - General Family Medicine 05/02/18 [facility] 10/13/24 documented as of this encounter
--- OUTSIDE RECORDS SUMMARY | 2025-02-12 18:25 | XMS_ITS | Encounter Summary ---
Author Organization [employer] Address [address] [facility] [address] 7[address] [place] [address] Care Team Providers Care Associate Professor Of Law Name Role Phone Lin Floyd MD Primary Care Provider [phone] Encounter Details Date Type Department Care Team ([facility] Contact Info) Description 09/06/2023 Orders Only [facility] CHC MED & PEDS [address] [place], [place] [phone] Provider, MD Viv Social History Tobacco Use [...] on filedocumented in this encounter Care Teams Associate Professor Of Law Relationship Specialty Start Date End Date Lin Floyd MD [address] [place] [address] PCP - General Family Medicine 05/02/18 [facility] 10/13/24 documented as of this encounter
--- OUTSIDE RECORDS SUMMARY | 2025-02-12 18:25 | XMS_ITS | Encounter Summary ---
Author Organization [employer] Address [address] [facility] [address] [place] [address] Care Team Providers Care President Sales And Marketing Name Role Phone Lin Floyd MD Primary Care Provider [phone] Reason for Visit * Reason Onset Date Comments Hospital Follow-up 10/12/2024 Encounter Details Date Type Department Care Team ([facility] Contact Info) Description 10/12/2024 Telephone [facility] MEDICINE [address] [place] [address] Lin Floyd MD [address] [place], [place] [phone] Hospital Follow-up Social History Tobacco Use Types Packs/Day Years [...] Miscellaneous Notes * Telephone Encounter - Leon Lorenz - 10/12/2024 12:31 PM EDT Tc from pt requesting a HDF appt. Hospital: [facility] Date of admission: 10/08/24 Discharge date: 10/11/24 Diagnosed: Flu documented in this encounter Plan of Treatment Not on file documented as of this encounter Visit Diagnoses Not on filedocumented in this encounter Additional Health Concerns Assessment Noted Time PHQ-9 Depression Total Score: 0 09/19/19 10:38 AM EDT documented as of this encounter Care Teams President Sales And Marketing Relationship Specialty Start Date End Date Lin Floyd MD [address] [place] [address] PCP - General Family Medicine 05/02/18 [facility] 10/13/24 documented as of this encounter
--- OUTSIDE RECORDS SUMMARY | 2025-02-12 18:25 | XMS_ITS | Encounter Summary ---
Author Organization [employer] Address [address] [facility] 7 [place] [address] Care Team Providers Care Professor Of Rhetoric Name Role Phone Lin Floyd MD Primary Care Provider [phone] Reason for Visit * Reason Onset Date Comments callback requested 04/12/2024 Encounter Details Date Type Department Care Team ([facility] Contact Info) Description 04/12/2024 Telephone [facility] MEDICINE [address] [place] [address] Lin Floyd MD [address] [place], [place] [phone] callback requested Social History Tobacco Use Types Packs/Day Years Used Date Smoking Tobacco: Former Cigarettes Passive Smoke Exposure: Never Housing Stability Answer Date Recorded What is your housing situation today? I have adanaditya león 05/09/[address] you [...] by call center does not work. Called [facility] directly. Left messagefor Luz Cowart, occupational therapist director to call back. In future, call main number of [phone], ext: [phone]. * Telephone Encounter - Dyan Wolf - 04/12/2024 4:29 PM EST Tc from katy with [facility] [place] requesting a callback (no further info discussed) [phone] documented in this encounter Plan of Treatment Not on file documented as of this encounter Visit Diagnoses Not on filedocumented in this encounter Care Teams Professor Of Rhetoric Relationship Specialty Start Date End Date Lin Floyd MD [address] [place] [address] PCP - General Family Medicine 05/02/18 [facility] 10/13/24 documented as of this encounter
== END 2025-02-12 16:20 | disposition home or self-care (01) ==
LOC: HO.HPS 15:52
PROVIDERS: PCP Pediatrics; Visit Provider Internal Medicine
DX: J44.9 Chronic obstructive pulmonary disease, unspecified (principal)
CPT/HCPCS: 99213

== ENCOUNTER → 2025-02-12 15:52 | Outpatient (BNVA) | payer OTHER, SELFPAY | PROVIDERS: PCP Pediatrics; Visit Provider Internal Medicine | DX: J44.9 Chronic obstructive pulmonary disease, unspecified (principal) | CPT/HCPCS: 99212 ==